=== PATIENT | female | born 1955 | race Caucasian/White ===

== ENCOUNTER 2019-09-22 07:37 | Outpatient (CLI) | payer MEDICARE, SELFPAY ==
--- NOTE | ~2019-09-22 | US_ITS ---
EXAMINATION: US venous doppler LE EXAM DATE: 09/22/2019 09:04 INDICATION: Bilateral leg swelling. TECHNIQUE: Multiple grayscale, color flow and Doppler images of the lower extremity deep venous syste ms bilaterally were obtained and reviewed. There is no prior study for comparison. FINDINGS: Right side: The right common femoral, femoral and profunda veins demonstrate normal color flow, respi ratory variation, augmentation and compressibility. Compressibility, color flow confirmed within the right popliteal, posterior tibial, peroneal, and greater saphenous veins. Left side: The left common femoral, femoral and profunda veins demonstrate normal color flow, respira tory variation, augmentation and compressibility. Compressibility, color flow confirmed within the l eft popliteal, posterior tibial, peroneal, and greater saphenous veins. IMPRESSION: 1. No lower extremity deep venous thrombosis bilaterally. Reviewed, dictated and finalized at location B.
--- NOTE | ~2019-09-22 | CT_ITS ---
EXAMINATION: CTA chest PE protocol EXAM DATE: 09/22/2019 08:46 INDICATION: Chest pain and shortness of breath. TECHNIQUE: Spiral CTA of the chest (pulmonary arteries) was performed with 100 cc Omnipaque 350 intr avenous contrast injection. Images were acquired during the pulmonary arterial phase. Coronal maxi mum intensity projection 3D-reconstructions were created by the technologist on dedicated workstation . Axial, coronal and sagittal reformatted images were reviewed. The dose-length product (DLP) for t his examination was 733.57 mGy-cm. The exposure was tailored according to patient size (auto mA exp osure control), and iterative reconstruction (ASIR) was used as additional dose reduction technique. There is no prior study for comparison. FINDINGS: Pulmonary arteries are well opacified and without intraluminal filling defects. No thora cic aortic dissection. There is some dependent mosaic attenuation, more likely air trapping than jonh undglass opacity from edema or pneumonia. There are no pleural or pericardial effusions. Tracheobr onchial tree is patent. There is no mediastinal, hilar or axillary lymphadenopathy. There is no p neumothorax. Mild cardiomegaly. No evidence of coronary arterial calcification. Multilobulated fl uid density right liver lobe lesion measuring 6 cm, and several smaller lesions all likely cysts. Th ere is thoracic spondylosis without osteoblastic or osteolytic lesions identified. IMPRESSION: 1. Dependent mosaic attenuation more likely air trapping and edema or infection. 2. Mild cardiomegaly. 3. No pulmonary emboli. Reviewed, dictated and finalized at location B. IMPRESSION: 1. Dependent mosaic attenuation more likely air trapping and edema or infectio n. 2. Mild cardiomegaly. 3. No pulmonary emboli.
--- NOTE | ~2019-09-22 | XR_ITS ---
EXAMINATION: XR lumbar spine 2-3V DATE: 09/22/2019 08:09 INDICATION: Cough, dorsalgia TECHNIQUE: Anteroposterior and lateral views of the lumbar spine, and cone-down lateral view of the l umbosacral junction were obtained. COMPARISON: None. FINDINGS: There are 2 mm of anterolisthesis of L4 on L5 and 2 mm of retrolisthesis of L5 on S1. There is moderate loss of intervertebral disc space height at L5-S1. Intervertebral disc spaces are otherw ise maintained. The vertebral body heights are normal. Small degenerative osteophytes project from th e anterior endplates of multiple vertebral bodies. There is no fracture. There is moderate facet oste oarthritis of the lower lumbar spine. The bowel gas pattern is normal. Phleboliths are noted in the p bhaskar. A neurostimulator device is implanted in the posterior subcutaneous tissues on the right with its lead entering the right pelvis. IMPRESSION: 1. Mild/moderate lumbar spondylosis without acute findings. Reviewed, dictated and finalized at location A.
--- NOTE | ~2019-09-22 | XR_ITS ---
EXAMINATION: XR barium swallow modified DATE: 09/22/2019 09:31 INDICATION: Cough, history of gastroesophageal reflux disease TECHNIQUE: Modified barium esophagram was performed by myself to administered fluoroscopy, in conjun ction with speech pathologist who administered barium in varying consistencies as per speech patholog ist documentation. This was recorded on tape. A single fluoroscopic spot image was recorded. The DAP for this procedure was 2.587 Gycm2. Fluoroscopy exposure time was 2.3 minutes. FINDINGS: Oral stage: Adequate function. Pharyngeal phase: Adequate function. Laryngeal penetration: None. Aspiration: None. Laryngeal sensitivity: Present. IMPRESSION: No laryngeal penetration or aspiration. Please refer to speech pathologist findings and s pecific feeding recommendations. Reviewed, dictated and finalized at location A. IMPRESSION: No laryngeal penetration or aspiration. Please refer to speech path ologist findings and specific feeding recommendations.
[2019-09-22 08:27] LABS: Estimated Glomerular Filt Rate > 60
--- NOTE | 2019-09-22 15:40 | STOPEVAL ---
MODIFIED BARIUM SWALLOW EVALUATION: Attending Provider: Van Dupree MD *ST Outpatient Evaluation ([facility] [place]) Start: 09/22/19 15:28 Freq: Status: Active Protocol: Document 09/22/19 09:00 BECHERERT (Rec: 09/22/19 15:40 BECHERERT [email or web address]) Therapy Assessment Status Assessment Status Assessment Status Evaluation Outpatient Past Medical History Neurological History Hx Migraine Yes Hx Other Neurological Disorders Yes: peripheral neuropathy; episodes of confusion Prior Level of Function Prior Swallow Level Prior Intake Method Oral Prior Diet Regular (Level 7 Diet) Prior Liquid Consistency Thin (Level 0 Diet) Pain Assessment Timing of Pain Assessment Timing of Pain Assessment Assessment Self Report Self Report Pain Level 0 Pain Score Pain Score 0: Self Report Modified Barium Swallow Evaluation Recent Swallowing History Reports Dysphagia Yes: choking, excessive coughing History of Dysphagia No Duration of Dysphagia 2 months Other Related History denies CVA but reported episodes of confusion History of Pneumonia No Intake Method Prior to Swallow Oral Evaluation Diet Prior to Swallow Evaluation Regular, Level 7 Liquid Consistency Prior to Swallow Thin (0) Evaluation Consistency Thin Uncontrolled 2 Method of Presentation Straw Oral Preparatory Symptoms None Oral Phase Symptoms None Pharyngeal Phase Symptoms None Severity of Vallecular Residue None - 0% No Residue Severity of Pyriform Sinus Residue None - 0% No Residue 8 Point Laryngeal Penetration-Aspiration Material Does Not Enter Airway Scale Cervical/Esophageal Symptoms None Thin Uncontrolled 1 Method of Presentation Cup Oral Preparatory Symptoms None Oral Phase Symptoms None Pharyngeal Phase Symptoms None Severity of Vallecular Residue None - 0% No Residue Severity of Pyriform Sinus Residue None - 0% No Residue 8 Point Laryngeal Penetration-Aspiration Material Does Not Enter Airway Scale Cervical/Esophageal Symptoms None Solid Consistency Method of Presentation Spoon Oral Preparatory Symptoms None Oral Phase Symptoms None Pharyngeal Phase Symptoms None Severity of Vallecular Residue None - 0% No Residue Severity of Pyriform Sinus Residue None - 0% No Residue 8 Point Laryngeal Penetration-Aspiration Material Does Not Enter Airway Scale Cervical/Esophageal Symptoms None Mixed Consistency Method of Presentation Spoon Oral Preparatory Symptoms None Oral Pha
== END 2019-09-22 07:38 | disposition home or self-care (01) ==
PROVIDERS: PCP Internal Medicine; Visit Provider Internal Medicine
DX: R07.9 Chest pain, unspecified (principal); R06.02 Shortness of breath; R05 Cough; K21.9 Gastro-esophageal reflux disease without esophagitis; I51.7 Cardiomegaly; M47.896 Other spondylosis, lumbar region
CPT/HCPCS: 36415; 71275; 72100; 92611; 93970; Q9967

== ENCOUNTER 2019-09-26 06:38 | Outpatient (CLI) | payer MEDICARE, SELFPAY ==
--- NOTE | 2019-09-26 07:30 | NEURO_ITS ---
TEST: SLEEP-DEPRIVED ELECTROENCEPHALOGRAM DIAGNOSIS: GLOBAL AMNESIA PATIENT NUMBER: [id number] EEG NUMBER: [id number] RECORDING DATE: 09/26/19 CONDITION OF RECORDING: Awake, drowsy and sleep EEG DESCRIPTION: Basic resting occipital frequency consists of moderate amount of well organized low to medium voltage 8-10hz alpha mixed with low voltage 15- 18hz beta. During drowsiness low voltage beta activity is seen diffusely mixed with waxing and waning posterior alpha rhythms and intermittent theta activity. Bilateral symmetrical sleep activity is seen during sleep. Photic stimulation produced normal drive. Intermittent asymmetrical theta activity is seen over the left hemispheric linkages. Nonparoxysmal. IMPRESSION: Only questionably abnormal record due to the presence of the asymmetrical theta activity over the left hemispheric linkages.Clinical correlation recommended. This abnormality is not paroxysmal in nature but considering the clinical symptomatology further evaluation is suggested. WESLEY
== END 2019-09-26 06:39 | disposition home or self-care (01) ==
PROVIDERS: PCP Internal Medicine; Visit Provider Internal Medicine
DX: G45.4 Transient global amnesia (principal); R94.01 Abnormal electroencephalogram [EEG]
CPT/HCPCS: 95819

== ENCOUNTER 2019-11-12 10:04 | Outpatient (CLI) | payer MEDICARE, SELFPAY ==
--- NOTE | 2019-11-12 11:30 | NEURO_ITS ---
Patient Number: [id number] Impression: # Complains of numbness of hands. # Mild evolving Carpal Tunnel Syndrome bilaterally. # No ulnar neuropathy. # Normal needle/EMG exam. Nerve Conduction Studies Anti Sensory Summary Table Stim Site NR Peak (ms) P-T Amp (?V) Site1 Site2 Delta-P (ms) Dist (cm) Quang (m/s) Left Median Anti Sensory (2-3nd Digit) Wrist 2.7 92.7 Wrist 2-3nd Digit 2.7 14.0 52 Wrist 2.8 83.3 Wrist 2-3nd Digit 2.7 14.0 52 Right Median Anti Sensory (2-3nd Digit) Wrist 3.2 14.4 Wrist 2-3nd Digit 3.2 14.0 44 Wrist 2.8 66.3 Wrist 2-3nd Digit 3.2 14.0 44 Left Radial Anti Sensory (Base 1st Digit) Wrist 2.1 9.9 Wrist Base 1st Digit 2.1 0.0 Right Radial Anti Sensory (Base 1st Digit) Wrist 2.3 20.3 Wrist Base 1st Digit 2.3 0.0 Left Ulnar Anti Sensory (5th Digit) Wrist 2.3 94.5 Wrist 5th Digit 2.3 14.0 61 Right Ulnar Anti Sensory (5th Digit) Wrist 2.4 19.1 Wrist 5th Digit 2.4 14.0 58 Motor Summary Table Stim Site NR Onset (ms) O-P Amp (mV) Site1 Site2 Delta-0 (ms) Dist (cm) Quang (m/s) Left Median Motor (Abd Poll Brev) Wrist 3.5 3.7 Elbow Wrist 4.6 28.0 61 Elbow 8.1 2.7 Right Median Motor (Abd Poll Brev) Wrist 3.7 2.4 Elbow Wrist 6.8 30.0 44 Elbow 10.5 1.0 Left Ulnar Motor (Abd Dig Minimi) Wrist 2.4 6.0 A Elbow Wrist 4.8 29.0 60 A Elbow 7.2 5.2 Right Ulnar Motor (Abd Dig Minimi) Wrist 2.3 6.1 A Elbow Wrist 4.8 28.0 58 A Elbow 7.1 5.3 F Wave Studies NR F-Lat (ms) L-R F-Lat (ms) Left Median (Mrkrs) (Abd Poll Brev) 27.45 0.95 Right Median (Mrkrs) (Abd Poll Brev) 28.40 0.95 Left Ulnar (Mrkrs) (Abd Dig Min) 28.43 0.46 Right Ulnar (Mrkrs) (Abd Dig Min) 27.97 0.46 EMG Side Muscle Nerve Root Ins Act Fibs Amp Dur Recrt Comment Right 1stDorInt Ulnar C8-T1 Nml Nml Nml Nml Nml Right Ext Indicis Radial (Post Int) C7-8 Nml Nml Nml Nml Nml Right Ext Digitorum Radial (Post Int) C7-8 Nml Nml Nml Nml Nml Right BrachioRad Radial C5-6 Nml Nml Nml Nml Nml Right PronatorTeres Median C6-7 Nml Nml Nml Nml Nml Right Abd Poll Brev Median C8-T1 Nml Nml Nml Nml Nml Left 1stDorInt Ulnar C8-T1 Nml Nml Nml Nml Nml Left Ext Indicis Radial (Post Int) C7-8 Nml Nml Nml Nml Nml Left Ext Digitorum Radial (Post Int) C7-8 Nml Nml Nml Nml Nml Left BrachioRad Radial C5-6 Nml Nml Nml Nml Nml Left PronatorTeres Median C6-7 Nml Nml Nml Nml Nml Left Abd Poll Brev Median C8-T1 Nml Nml Nml Nml Nml MTDD
== END 2019-11-12 10:05 | disposition home or self-care (01) ==
PROVIDERS: PCP Internal Medicine; Visit Provider Internal Medicine
DX: R20.2 Paresthesia of skin (principal); G56.03 Carpal tunnel syndrome, bilateral upper limbs
CPT/HCPCS: 95886; 95911

== ENCOUNTER 2019-11-27 11:35 | Outpatient (CLI) | payer MEDICARE, SELFPAY ==
--- NOTE | ~2019-11-27 | XR_ITS ---
EXAMINATION: XR chest 2V 11/27/2019 10:58 INDICATION: Fever with cough for 2 nights. Wheezing. PROCEDURE: 2 view chest COMPARISON: No prior studies for comparison. FINDINGS: The lungs are clear. The cardiomediastinal silhouette is within normal limits. There are no pleural effusions. There is no pneumothorax suspected. IMPRESSION: 1: NO ACUTE CARDIOPULMONARY DISEASE. Reviewed, dictated and finalized at location B.
[2019-11-27 12:18] LABS: Influenza Control Positive
== END 2019-11-27 11:36 | disposition home or self-care (01) ==
PROVIDERS: PCP Internal Medicine; Visit Provider Internal Medicine
DX: R50.9 Fever, unspecified (principal); R05 Cough; R06.2 Wheezing
CPT/HCPCS: 71046; 87804

== ENCOUNTER 2019-12-15 03:46 | Outpatient (CLI) | payer MEDICARE, SELFPAY ==
[2019-12-15 20:39] LABS: SARS-CoV-2 RNA PCR Negative
== END 2019-12-15 03:47 | disposition home or self-care (01) ==
LOC: ANHCOVIDDT 03:47
PROVIDERS: PCP Internal Medicine; Visit Provider Plastic Surgery
DX: R50.9 Fever, unspecified (principal); Z20.828 Contact with and (suspected) exposure to other viral communicable diseases
CPT/HCPCS: 87635; C9803; U0003

== ENCOUNTER 2019-12-15 08:27 | Outpatient (CLI) | payer MEDICARE, SELFPAY ==
[2019-12-15 08:59] LABS: Basophils Percent Auto 0.7 % (0.2-1.2); Eosinophils Absolute Auto 0.2 K/mm3 (0-0.3); Eosinophils Percent Auto 3.5 % (0-4.4); Hematocrit 40.5 % (37.0-47.0); Hemoglobin 13.3 g/dL (12.0-15.0); Immature Granulocyte Absolute 0.03 K/mm3 (0.00-0.031); Immature Granulocyte Percent A 0.5 % (0-0.5); Lymphocytes Absolute Auto 1.58 K/mm3 (0.9-3.2); Lymphocytes Percent Auto 27.8 % (18.3-44.2); Mean Corpuscular HGB Conc 32.8 g/dl (32-36); Mean Corpuscular Hemoglobin 29.2 pg (26-34); Mean Platelet Volume 9.9 fl (7.4-10.4); Monocytes Absolute Auto 0.4 K/mm3 (0.1-0.6); Monocytes Percent Auto 6.7 % (2.6-8.5); Neutrophils Absolute Auto 3.5 K/mm3 (1.3-6.7); Neutrophils Percent Auto 60.8 % (45.5-73.1); Platelet Count Result 308 k/mm3 (150-375); Red Blood Count 4.55 M/mm3 (4.2-5.4); Red Cell Distribution Width 14.4 % (11.5-14.5); White Blood Count 5.7 K/mm3 (4.5-10.0)
[2019-12-15 09:10] LABS: Alanine Aminotransferase 45 U/L (4-35); Albumin Level 4.4 g/dL (3.5-5.1); Alkaline Phosphatase 151 U/L (38-126); Anion Gap 9 mmol/L (8-16); Aspartate Amino Transferase 29 U/L (14-36); Bilirubin,Total 0.4 mg/dL (0.2-1.3); Blood Urea Nitrogen 23 mg/dL (7-17); Calcium 9.9 mg/dL (8.4-10.2); Carbon Dioxide 30 mmol/L (22-30); Chloride 100 mmol/L (98-107); Cholesterol 194 mg/dL (0-200); Estimated Glomerular Filt Rate > 60; Glucose 103 mg/dL (65-105); HDL Direct 59 mg/dL; Potassium 4.1 mmol/L (3.4-5.0); Sodium 139 mmol/L (137-145); Triglycerides 184 mg/dL (<150)
[2019-12-15 09:15] LABS: Hemoglobin A1C 5.7 % (<5.7)
[2019-12-15 09:21] LABS: LDL Cholesterol Direct 86 mg/dL
[2019-12-15 09:38] LABS: Creatinine Urine 106.6 mg/dL
[2019-12-15 09:47] LABS: MALB Creatinine Ratio < 5.6 mg/g (0-30); Microalbumin Urine Random < 6.0 mg/L (0-16.7)
== END 2019-12-15 08:28 | disposition home or self-care (01) ==
PROVIDERS: PCP Internal Medicine; Visit Provider Internal Medicine
DX: E11.9 Type 2 diabetes mellitus without complications (principal); I10 Essential (primary) hypertension; Z51.81 Encounter for therapeutic drug level monitoring; Z79.899 Other long term (current) drug therapy; E78.5 Hyperlipidemia, unspecified
CPT/HCPCS: 36415; 80053; 80061; 82043; 83036; 84443; 85025; 87635; C9803; U0003

== ENCOUNTER 2019-12-18 01:33 | Day surgery (SDC) | payer MEDICARE, SELFPAY ==
[2019-12-12 15:33] VITALS: BMI 40.3
--- NOTE | 2019-12-17 10:28 | WPDANESEPPF ---
Anes - Initial Pre Proc Eval Procedure: Operation Date: 12/18/19 10:30 Proposed Procedures p Bilateral Open Carpal Tunnel Release - Hansel Saleh MD Date/Time: 12/17/19 10:28 Surgeon: Hansel Saleh MD Pre Op Diagnosis: Bilateral Carpal Tunnel Syndrome Patient Data Age: 64 Gender: F Height: 1.68 m Weight: 113.4 kg Allergies Allergy/AdvReac Type Severity Reaction Status Date / Time clindamycin Allergy Intermediate Hives Verified 12/12/19 15:35 lithium AdvReac Severe Hallucinati Verified 12/12/19 15:35 ng zolpidem AdvReac Severe Hallucinati Verified 12/12/19 15:35 ng gabapentin AdvReac Mild Confusion Verified 12/12/19 15:35 W/ HIGHER DOSAGES pregabalin [From Lyrica] AdvReac Mild HAIR LOSS Verified 12/12/19 15:35 topiramate [From Topamax] AdvReac Mild Hallucinati Verified 12/12/19 15:35 ng ziprasidone [From Geodon] AdvReac Mild Confusion Verified 12/12/19 15:35 ORAL STEROIDS AdvReac Depression Uncoded 12/12/19 15:35 Home Medications Medication Instructions Recorded Confirmed Type albuterol sulfate 90 mcg/actuation 1 puff INHALATION Q4H PRN 09/09/19 12/12/19 History aerosol inhaler allopurinol 100 mg tablet 100 mg PO DAILY 09/09/19 12/12/19 History cholecalciferol (vitamin D3) 1,250 1,250 mcg PO [id number] 09/09/19 12/12/19 History mcg (50,000 unit) capsule clonazepam 1 mg tablet 1 mg PO .COMPLEX 09/09/19 12/12/19 History colchicine 0.6 mg tablet 0.6 mg PO DAILY 09/09/19 12/12/19 History cranberry fruit concentrate 250 mg 250 mg PO DAILY 09/09/19 12/12/19 History chewable tablet diclofenac sodium 1 % topical gel 4 gm TOPICAL QID PRN 09/09/19 12/12/19 History duloxetine 60 mg capsule,delayed 120 mg PO DAILY cap 09/09/19 12/12/19 History release lamotrigine 150 mg tablet 200 mg PO BID 09/09/19 12/12/19 History magnesium 250 mg tablet 500 mg PO HS tablet 09/09/19 12/12/19 History multivitamin 1 cap PO DAILY 09/09/19 12/12/19 History polyethylene glycol 3350 17 17 gm PO DAILY PRN 09/09/19 12/12/19 History gram/dose oral powder sumatriptan succinate 100 mg tablet See Rx Instructions PO .COMPLEX 09/09/19 12/12/19 History blood sugar diagnostic #50 each 09/17/19 10/16/19 Rx carvedilol 3.125 mg tablet 6.25 mg PO Q12H tablet 09/17/19 12/12/19 History lancets #50 each 09/17/19 10/16/19 Rx potassium chloride 20 mEq 40 meq PO DAILY tablet 09/17/19 12/12/19 History tablet,extended release atorvastatin 10 mg tablet 10 mg PO DAILY #90 tablet 09/19/19 12/12/19 Rx benzonatate 100 mg capsule 200 mg PO BID-TID PRN #30 cap 09/30/19 12/12/19 Rx furosemide 40 mg tablet 80 mg PO DAILY tablet 10/10/19 12/12/19 History spironolactone 50 mg tablet 50 mg PO BID tablet 10/10/19 12/12/19 History sucralfate 1 gram tablet 2 gm PO .bedtime #180 tablet 10/16/19 12/12/19 Rx pantoprazole 40 mg tablet,delayed 40 mg PO QAM #90 tablet 10/22/19 12/12/19 Rx release blood-glucose meter #1 each 11/21/19 Rx semaglutide 0.5 mg SUB-Q WEEKLY 90 Days #5.2 ml 11/26/19 12/12/19 Rx Breo Ellipta 100 mcg-25 mcg/dose 1 ea INHALATION DAILY #28 ea NS 12/10/19 12/12/19 Rx powder for inhalation cyclobenzaprine 10 mg tablet 10 mg PO TID PRN #30 tablet 12/10/19 12/12/19 Rx metformin 500 mg tablet 500 mg PO BID #180 tablet 12/10/19 12/12/19 Rx ropinirole 2 mg tablet 2 mg PO .COMPLEX 90 Days #270 12/10/19 12/12/19 Rx tablet mirtazapine 30 mg PO QPM 12/12/19 12/12/19 History triamcinolone acetonide 1 applic TOPICAL BID PRN 12/12/19 12/12/19 History PMFSH Past Medical History Medical History (Updated 11/27/19 @ 09:16 by Melanie Whitehead) Abnormal finding of blood chemistry Back pain Benign essential hypertension Bilateral carpal tunnel syndrome Bipolar affect, depressed Body mass index (BMI) 40.0-44.9, adult Chest pain Chronic constipation Chronic cough Compression fracture of T4 vertebra Depression Encounter to establish care Fever Folliculitis Follow up GERD (gastroesophageal reflux disease) Gou
[2019-12-18] VITALS (7 sets, daily range): BP systolic 136–165; BP diastolic 69–83; PULSE 66–73; RESP 14–24; TEMP 36.5; O2SAT 92–100
--- NOTE | 2019-12-18 07:34 | WPDHPUPDATE1 ---
History and Physical Update Update Date/Time: 12/18/19 07:34 History and Physical has been reviewed, including an updated exam of the patient. There are NO changes in the patient's condition. Risks, benefits, and alternatives have been discussed and questions answered. Patient agrees to proceed with procedure.
[2019-12-18] MEDS: LIDO 1%/EPINEPHRINE 1:100,000 20 ML VIAL 8 ML INFILTRATE (11:22)
--- NOTE | 2019-12-18 11:53 | PM.OP ---
Procedure Note - Brief Procedure Note - Brief Date of procedure: 12/18/19 Pre-op diagnosis: Bilateral Carpal Tunnel Syndrome Post-op diagnosis: same Procedure performed: Bilateral carpal tunnel release. Anesthesia: local Surgeon: Hansel Saleh MD Estimated blood loss (mL): 3 Tourniquet time (min): 0 Drains: No Packing: No Pathology: none sent Complications: No immediate complications Condition: stable Disposition: same day
--- NOTE | 2019-12-18 11:55 | PM.PROC ---
Procedure Note - Detailed Date of procedure: 12/18/19 Pre-op diagnosis: Bilateral Carpal Tunnel Syndrome Post-op diagnosis: same Procedure performed: Bilateral open carpal tunnel release Description of procedure: The two volar wrist sites were marked in the holding area. The patient was taken to the operating room and placed supine on the operating table. The time-out was held and confirmed. Both extremities were prepped and draped in usual fashion. The 2 hands were remarked for the surgical incision and locally infiltrated with 1% lidocaine with epinephrine for On the right the incision was made as marked. The tourniquet was not utilized. Dissection was carried through the subcutaneous tissue to the palmar fascia this and the carpal ligament were incised with a 15. Blade. Under 3 point retraction the ligament was divided distally and proximally to completely release it. Some bleeding points in the subcutaneous wall were cauterized with a setting of 10. There was no unusual anatomy noted. The skin wound was closed with interrupted 5 0 nylon suture. The bandage was applied by the circulating nurse as we moved to the left hand. On the left again the tourniquet was not utilized. The incision was made with a 15 blade. Dissection was carried bluntly through the subcutaneous tissue to the palmar fascia. The fascia and the carpal ligament were incised with a 15 blade opening the canal. Under 3 point retraction the ligament was divided distally and proximally to completely release it. No unusual anatomy was noted on the left. The skin was closed with interrupted 5 0 nylon suture. The usual bandage was applied. The patient is discharged home with instructions in wound care and follow-up a prescription for hydrocodone 5/325 10. Was sent to her pharmacy. Surgeon: Hansel Saleh MD
== END 2019-12-18 12:10 | disposition home or self-care (01) ==
PROVIDERS: PCP Internal Medicine; Visit Provider Plastic Surgery
PROC: (CPT 64721; principal; 2019-12-18 10:30)
DX: G56.03 Carpal tunnel syndrome, bilateral upper limbs (principal)
CPT/HCPCS: 64721; A9270

== ENCOUNTER 2019-12-31 09:47 | Outpatient (CLI) | payer MEDICARE, SELFPAY ==
--- NOTE | 2019-12-31 11:00 | NEURO_ITS ---
Impression: # Complains of increasing numbness. Newly diagnosed diabetic. # Asymmetrical sensory neuropathy. # Needle/EMG exam revealed no neurogenic changes but decreased motor unit potentials in distal muscles. # Clinical correlation recommended. Nerve Conduction Studies Anti Sensory Summary Table Stim Site NR Peak (ms) P-T Amp (?V) Site1 Site2 Delta-P (ms) Dist (cm) Quang (m/s) Left Sup Fibular Anti Sensory (Ant Lat Mall) 14 cm 4.2 9.9 14 cm Ant Lat Mall 4.2 16.0 38 Right Sup Fibular Anti Sensory (Ant Lat Mall) NO RESPONSE 14 cm NR 14 cm Ant Lat Mall 16.0 Left Sural Anti Sensory (Lat Mall) Calf 4.3 13.8 Calf Lat Mall 4.3 16.0 37 Right Sural Anti Sensory (Lat Mall) NO RESPONSE Calf NR Calf Lat Mall 16.0 Motor Summary Table Stim Site NR Onset (ms) O-P Amp (mV) Site1 Site2 Delta-0 (ms) Dist (cm) Quang (m/s) Left Peroneal Motor (Vastus Med) Ankle 4.2 3.1 Popit Ankle 7.7 39.0 51 Popit 11.9 2.6 Right Peroneal Motor (Vastus Med) Ankle 3.6 1.7 Popit Ankle 7.8 37.0 47 Popit 11.4 1.1 Left Tibial Motor (Abd Graham Brev) Ankle 4.5 2.5 Knee Ankle 9.6 43.0 45 Knee 14.1 3.2 Right Tibial Motor (Abd Graham Brev) Ankle 4.1 5.9 Knee Ankle 9.2 41.0 45 Knee 13.3 2.2 F Wave Studies NR F-Lat (ms) L-R F-Lat (ms) Left Peroneal (Mrkrs) (EDB) 48.64 1.89 Right Peroneal (Mrkrs) (EDB) 50.53 1.89 Left Tibial (Mrkrs) (Abd Hallucis) 49.78 0.35 Right Tibial (Mrkrs) (Abd Hallucis) 49.43 0.35 EMG Side Muscle Nerve Root Ins Act Fibs Amp Dur Recrt Comment Right AntTibialis Dp Br Fibular L4-5 Nml Nml Nml Nml Nml Right Gastroc Tibial S1-2 Nml Nml Nml Nml Nml Right Fibularis Long Sup Br Fibular L5-S1 Nml Nml Nml Nml Nml Right Flex Dig Long Tibial L5-S2 Nml Nml Nml Nml Nml Right Ext Dig Brev Dp Br Fibular L5, S1 Nml Nml Nml >12ms Reduced Left AntTibialis Dp Br Fibular L4-5 Nml Nml Nml Nml Nml Left Gastroc Tibial S1-2 Nml Nml Nml Nml Nml Left Fibularis Long Sup Br Fibular L5-S1 Nml Nml Nml Nml Nml Left Flex Dig Long Tibial L5-S2 Nml Nml Nml Nml Nml Left Ext Dig Brev Dp Br Fibular L5, S1 Nml Nml Nml >12ms Reduced MTDD
== END 2019-12-31 09:48 | disposition home or self-care (01) ==
PROVIDERS: PCP Internal Medicine; Visit Provider Internal Medicine
DX: G62.9 Polyneuropathy, unspecified (principal)
CPT/HCPCS: 95886; 95910

== ENCOUNTER 2020-01-13 09:01 | Outpatient (CLI) | payer MEDICARE, SELFPAY ==
[2020-01-13 10:48] LABS: Folic Acid 11.2 ng/mL (2.76->20)
[2020-01-16 11:07] LABS: Vitamin B1 <6 nmol/L (8-30)
[2020-01-16 12:25] LABS: Vitamin B6 23.3 ng/mL (2.1-21.7)
[2020-01-20 12:08] LABS: Vitamin B2 5.1 nmol/L (6.2-39.0)
== END 2020-01-13 09:02 | disposition home or self-care (01) ==
PROVIDERS: PCP Internal Medicine; Visit Provider Internal Medicine
DX: Z51.81 Encounter for therapeutic drug level monitoring (principal); R26.81 Unsteadiness on feet; R41.3 Other amnesia
CPT/HCPCS: 36415; 80299; 82607; 82746; 84207; 84252; 84425

== ENCOUNTER 2020-01-21 10:34 | Outpatient (CLI) | payer MEDICARE, SELFPAY ==
--- NOTE | ~2020-01-21 | CT_ITS ---
EXAMINATION: CT brain wo/w con DATE: 01/21/2020 11:17 INDICATION: Transient global amnesia. TECHNIQUE: Computed tomography (CT) of the head was performed without and with 100 mL Omnipaque 350 i ntravenous contrast. The mA was adjusted according to patient size. Iterative reconstruction techniqu e was employed. The dose-length product was 1210.67 mGy-cm. COMPARISON: None FINDINGS: There is no intracranial hemorrhage, acute infarction, or abnormal intracranial mass lesion . There are scattered areas of low attenuation in the cerebral white matter, which is within normal l imits for the patient's age. The ventricles are normal in size. There are likely changes of ocular le ns replacement surgeries. There is mild mucosal thickening in the ethmoid sinuses. The mastoid air ce lls are normal. IMPRESSION: 1. Normal aging brain. Reviewed, dictated and finalized at location A. NG AND REIMBURSEMENT SPECIALIST IMPRESSION: 1. Normal aging brain.
[2020-01-21 11:05] LABS: Estimated Glomerular Filt Rate > 60
== END 2020-01-21 10:35 | disposition home or self-care (01) ==
PROVIDERS: PCP Internal Medicine; Visit Provider Internal Medicine
DX: G45.4 Transient global amnesia (principal); R26.81 Unsteadiness on feet
CPT/HCPCS: 70470; Q9967

== ENCOUNTER 2020-01-26 13:19 | Outpatient (RCR) | payer MEDICARE, SELFPAY ==
--- NOTE | 2020-01-26 14:58 | STOPEVAL ---
OUTPATIENT SPEECH THERAPY EVALUATION OF SWALLOWING/DISCHARGE: Thank you for referring Ifeoma Tavares to [facility].? Please review, sign, date and return this plan of care OBEY. No further Speech Therapy is recommended at this time. I agree with with the following evaluation and discharge. Referring Physician Date Attending Provider: Page Garcia MD fax: [phone] *ST Outpatient Evaluation Start: 01/26/20 14:23 Freq: Status: Active Protocol: Document 01/26/20 13:30 BECHERERT (Rec: 01/26/20 14:57 BECHERERT [email or web address]) Therapy Assessment Status Assessment Status Assessment Status Evaluation Outpatient Past Medical History Past Medical History Source of Past Medical History Patient Neurological History Hx Migraine Yes Hx Other Neurological Disorders Yes: peripheral neuropathy/ edema;tingling & numbness of UE; global amnesia Cardiovascular History Hx Chest Pain Yes Hx Hypertension Yes: benign essential Respiratory History Hx Sleep Apnea Yes: on CPAP Hx Other Respiratory Disorders Yes: chronic cough, SOB, Gastrointestinal History Hx Cholecystectomy Yes Hx Gastroesophageal Reflux Disease Yes Hx Hernia Yes: hiatal hernia Hx Irritable Bowel Yes Hx Polyps Yes: polypectomy 10-16-16 Hx Other Gastrointestinal Disorders Yes: chronic constipation Genitourinary History Hx Bladder Surgery Yes Hx Other Genitourinary Disorders Yes: stress incontinence; bladder suspension Musculoskeletal History Hx Back Pain Yes Hx Gout Yes Hx Orthopedic Surgery Yes: rotator cuff repair Hx Other Musculoskeletal Disorders Yes: gait instability; compression fx T4; bilateral carpal tunnel syndrome; Endocrine History Hx Diabetes Yes: type 2 Hx Other Endocrine Disorders Yes: Raynauds, HEENT History Hx Other HEENT Disorders Yes: polyps on vocal cords - removed Reproductive History Hx Hysterectomy Yes: partial Psychosocial History Hx Depression Yes Hx Post Traumatic Stress Disorder Yes Prior Level of Function Home Setting Living Situation With Spouse Prior Swallow Level Prior Intake Method Oral Prior Diet Regular (Level 7 Diet) Prior Liquid Consistency Thin (Level 0 Diet) Comments Additional Prior Level of Function Previous MBS on 09-22-19: 1 Comments episode of microaspiration with 5c amount but no other instances even
== END 2020-01-27 08:52 | disposition home or self-care (01) ==
LOC: ANHST 13:19
PROVIDERS: PCP Internal Medicine; Visit Provider Internal Medicine Critical Care Medicine
DX: T17.908A Unspecified foreign body in respiratory tract, part unspecified causing other injury, initial encounter (principal)
CPT/HCPCS: 92610

== ENCOUNTER 2020-02-26 07:17 | Outpatient (CLI) | payer MEDICARE, SELFPAY ==
--- NOTE | 2020-02-26 15:44 | WPDPFTINT ---
PFT Interpretation This is a pulmonary function test with pre and post-bronchodilator spirometry, plethysmography and diffusing capacity. The test was performed and results interpreted in accordance with the 2019 and 2005 ATS/ERS Task Force guidelines respectively using the Raffaele/Khoa reference equations. Findings: Spirometry: The contour of the inspiratory and expiratory flow tracing are normal. The pre bronchodilator FVC is 2.57 L, 77% predicted. The pre bronchodilator FEV1 is 1.95 L, 80% predicted. The FEV1: FVC ratio is 76%. The post bronchodilator FVC is 2.34 L, representing a 9% decrease. The post bronchodilator FEV1 is 1.91 L, representing a 2% decrease. Plethysmography: The total lung capacity is 4.86 L, 89% predicted. The functional residual capacity is 1.71 L, 72% predicted. The residual volume is 1.53 L, 72% predicted. Diffusing capacity: The absolute diffusion capacities capacity is 16.5, 60% predicted. The diffusing capacity corrected for alveolar volume is 4.80, 128% predicted. Impression: The spirometry is normal without evidence of an obstructive abnormality. There is no significant improvement after inhaling a single dose of albuterol. There is a reduction in the residual volume and functional residual capacity with a normal total lung capacity. This is an abnormal but nonspecific lung volume pattern. The absolute diffusing capacity is moderately decreased but increased when corrected for alveolar volume. There are no prior studies for comparison
== END 2020-02-26 07:18 | disposition home or self-care (01) ==
LOC: ANHPFT 07:18
PROVIDERS: PCP Internal Medicine; Visit Provider Internal Medicine Critical Care Medicine
DX: R05 Cough (principal)
CPT/HCPCS: 94060; 94726; 94729

== ENCOUNTER 2020-03-06 08:54 | Outpatient (CLI) | payer MEDICARE, SELFPAY ==
--- NOTE | ~2020-03-06 | XR_ITS ---
XR shoulder LT min 2V DATE: 03/06/2020 09:27 INDICATION: Shoulder pain. Fall 2 weeks ago TECHNIQUE: 4 views of left shoulder COMPARISON: None FINDINGS: Diffuse osteopenia. No fracture or dislocation. Normal alignment at the acromioclavicular and glenohumeral joints. No per iosteal reaction or bone destruction. No abnormal soft tissue calcification of the left shoulder. IMPRESSION: Osteopenia; otherwise negative Reviewed, dictated and finalized at location A. CIPAL TECHNICAL SPECIALIST
--- NOTE | ~2020-03-06 | XR_ITS ---
XR shoulder RT min 2V DATE: 03/06/2020 09:27 INDICATION: Right shoulder pain. Fall 2 weeks ago. TECHNIQUE: 4 views COMPARISON: None FINDINGS: Diffuse osteopenia. No fracture, dislocation, periosteal reaction or bone destruction. No significant abnormal soft tissu e calcification at the right shoulder. IMPRESSION: Osteopenia; otherwise negative Reviewed, dictated and finalized at location A. [employer]
== END 2020-03-06 08:55 | disposition home or self-care (01) ==
PROVIDERS: PCP Internal Medicine; Visit Provider Internal Medicine
DX: M85.811 Other specified disorders of bone density and structure, right shoulder (principal); M85.812 Other specified disorders of bone density and structure, left shoulder
CPT/HCPCS: 73030

== ENCOUNTER 2020-03-09 08:28 | Outpatient (CLI) | payer MEDICARE, SELFPAY ==
--- NOTE | 2020-03-09 13:37 | WPDPFTINT ---
PFT Interpretation This is a methacholine challenge test. The test was performed and interpreted in accordance with the 1999 [place] [employer] guidelines. The test was performed with increasing doses of nebulized methacholine using a 2 minute tidal breathing protocol. The best post-methacholine FEV1 values were used to calculate the change from the post diluent FEV1. Findings: Baseline FEV1 1.89, 78% predicted. Post diluent FEV1 2.18 L Post 0.025 mg/ml methacholine FEV1 1.80 L, decreased 17% Post 0.25 mg/mL methacholine FEV1 1.83 L, decreased 16% Post 2.5 mg/mL methacholine FEV1 1.51 L, decreased 31% Post albuterol nebulization FEV1 2.01 L Impression: The PC20 is 0.46 mg/ml which is categorized as moderate to severe bronchial hyperresponsiveness. There are no prior methacholine challenge studies for comparison
== END 2020-03-09 08:29 | disposition home or self-care (01) ==
PROVIDERS: PCP Internal Medicine; Visit Provider Internal Medicine Critical Care Medicine
DX: R05 Cough (principal)
CPT/HCPCS: 94070; J7674

== ENCOUNTER 2020-03-22 11:57 | Outpatient (CLI) | payer MEDICARE, SELFPAY | END 2020-03-22 11:58 | disposition home or self-care (01) | PROVIDERS: PCP Internal Medicine; Visit Provider Internal Medicine Critical Care Medicine | DX: J45.909 Unspecified asthma, uncomplicated (principal) | CPT/HCPCS: 36415; 82785; 86003 ==

== ENCOUNTER 2020-04-12 09:37 | Outpatient (CLI) | payer MEDICARE, SELFPAY ==
[2020-04-12 10:18] LABS: Hemoglobin A1C 5.7 % (<5.7)
[2020-04-12 10:24] LABS: Alanine Aminotransferase 61 U/L (4-35); Albumin Level 4.2 g/dL (3.5-5.1); Alkaline Phosphatase 108 U/L (38-126); Anion Gap 4 mmol/L (8-16); Aspartate Amino Transferase 36 U/L (14-36); Bilirubin,Total 0.4 mg/dL (0.2-1.3); Blood Urea Nitrogen 21 mg/dL (7-17); Carbon Dioxide 32 mmol/L (22-30); Chloride 102 mmol/L (98-107); Cholesterol 121 mg/dL (0-200); Estimated Glomerular Filt Rate > 60; Glucose 97 mg/dL (65-105); HDL Direct 69 mg/dL; Potassium 3.8 mmol/L (3.4-5.0); Sodium 138 mmol/L (137-145); Triglycerides 80 mg/dL (<150); Uric Acid 4.6 mg/dL (2.5-7.5)
[2020-04-12 10:35] LABS: LDL Cholesterol Direct 31 mg/dL
[2020-04-15 11:24] LABS: Vitamin B1 98 nmol/L (8-30)
== END 2020-04-12 09:38 | disposition home or self-care (01) ==
PROVIDERS: PCP Internal Medicine; Visit Provider Internal Medicine
DX: E11.9 Type 2 diabetes mellitus without complications (principal); Z79.899 Other long term (current) drug therapy; M1A.9XX0 Chronic gout, unspecified, without tophus (tophi); E51.9 Thiamine deficiency, unspecified; I10 Essential (primary) hypertension; E78.2 Mixed hyperlipidemia
CPT/HCPCS: 36415; 80053; 80061; 83036; 84425; 84443; 84550

== ENCOUNTER 2020-04-22 13:43 | Outpatient (CLI) | payer MEDICARE, SELFPAY ==
--- NOTE | ~2020-04-22 | CT_ITS ---
EXAMINATION: CT brain wo/w con DATE: 04/22/2020 14:35 INDICATION: Ptosis of right eyelid TECHNIQUE: Computed tomography (CT) of the head was performed without and subsequently with 100 cc Om nipaque 350 intravenous contrast. The mA was adjusted according to patient size. Iterative reconstruc tion technique was employed. Exam dose: 1210.67 mGy-cm total exam DLP. COMPARISON: 01/21/2020 CT brain FINDINGS: No intracranial mass lesion or hemorrhage or cerebrovascular accident is evident. No midlin e shift or mass effect effect. There is a focal asymmetric area of contrast enhancement in the right frontal parietal area (series 5 image 37) which is consistent with benign developmental venous anomaly (DVA). No subdural or epidural hematoma. Left frontal sinus is not developed. The paranasal sinuses and mast oid air cells are otherwise unremarkable. No fracture or bone destruction of the cranial vault. IMPRESSION: Developmental venous anomaly of right frontoparietal area, not likely of clinical signif icance Reviewed, dictated and finalized at Location [facility]. Reviewed, dictated and finalized at location A. IMPRESSION: Developmental venous anomaly of right frontoparietal area, not lik jaron of clinical significance
== END 2020-04-22 13:44 | disposition home or self-care (01) ==
PROVIDERS: PCP Internal Medicine; Visit Provider Internal Medicine
DX: H02.401 Unspecified ptosis of right eyelid (principal)
CPT/HCPCS: 70470; Q9967

== ENCOUNTER 2020-04-26 10:58 | Outpatient (CLI) | payer MEDICARE, SELFPAY ==
[2020-04-26 11:48] LABS: Anion Gap 6 mmol/L (8-16); Blood Urea Nitrogen 29 mg/dL (7-17); Calcium 10.1 mg/dL (8.4-10.2); Carbon Dioxide 37 mmol/L (22-30); Chloride 94 mmol/L (98-107); Estimated Glomerular Filt Rate 50; Glucose 112 mg/dL (65-105); Potassium 3.5 mmol/L (3.4-5.0); Sodium 137 mmol/L (137-145)
== END 2020-04-26 10:59 | disposition home or self-care (01) ==
LOC: ANHLAB 11:02
PROVIDERS: PCP Internal Medicine; Visit Provider Internal Medicine
DX: Z79.899 Other long term (current) drug therapy (principal); I10 Essential (primary) hypertension
CPT/HCPCS: 36415; 80048

== ENCOUNTER 2020-04-26 15:07 | Inpatient (IN) | payer MEDICARE, SELFPAY ==
[2020-04-26] VITALS (31 sets, daily range): BP systolic 77–133; BP diastolic 38–76; PULSE 70–87; RESP 11–30; TEMP 36.6; O2SAT 91–99; BMI 40.8
--- NOTE | ~2020-04-26 | CT_ITS ---
EXAMINATION: CT brain wo con EXAM DATE: 04/26/2020 15:44 INDICATION: Fell, left-sided head injury. History of multiple falls. TECHNIQUE: Spiral CT of the head was performed without contrast. Axial, coronal and sagittal images were reviewed. The dose-length product (DLP) for this examination was 605.33 mGy-cm. The exposure w as tailored according to patient size, and iterative reconstruction (ASIR) was used as additional dos e reduction technique. Comparison is made to prior examination from 04/22/2020. FINDINGS: There is no acute intraparenchymal hemorrhage. No evidence of intraparenchymal brain mass lesion. No evidence of acute infarction. Please note that initial head CT has limited sensitivity f or small or acute infarctions. There is mild periventricular and subcortical hypodensity, nonspecific but probably related to small vessel ischemic disease. There is mild prominence of the sulci and v entricles related to cerebral atrophy. There is intracranial carotid arteriosclerosis. There are n o extra-axial collections. There is no mass effect or midline shift. Patient has had bilateral ocul ar lens surgery. Soft tissue is unremarkable. The visualized sinuses and mastoid air cells are well aerated. Previously seen right frontal developmental venous anomaly not identified without contrast, but not a clinically significant finding. IMPRESSION: 1. No acute intracranial findings. 2. Chronic age related findings. Reviewed, dictated and finalized at location A.
--- NOTE | ~2020-04-26 | CT_ITS ---
EXAMINATION: CT [facility] EXAM DATE: 04/26/2020 15:44 INDICATION: Fall, head injury. TECHNIQUE: Spiral CT of the cervical spine was performed without contrast. Axial images were reviewe d. Coronal and sagittal reformatted images were also reviewed. The dose-length product (DLP) for thi s examination was 506.79 mGy-cm. The exposure was tailored according to patient size (auto mA exposu re control), and iterative reconstruction (ASIR) was used as additional dose reduction technique. ere is no prior study for comparison. FINDINGS: Linear right upper lobe opacity consistent with scarring. There is no evidence of acute cer vical fracture. The odontoid process is intact. Pre-dens space is normal. Prevertebral soft tissue is normal. There are no soft tissue abnormalities identified. There is no disc space widening or t raumatic vertebral body subluxation suspected. Mild to moderate disc disease at C6-7, mild at C5-6. Overall mild to moderate cervical arthropathy. A detailed level by level evaluation of spondylosis c an be added as addendum if requested. IMPRESSION: 1. No acute cervical fracture. 2. Mild to moderate cervical spondylosis. Reviewed, dictated and finalized at location A.
--- NOTE | ~2020-04-26 | XR_ITS ---
EXAMINATION: XR chest port-a-cath/central EXAM DATE: 04/26/2020 17:54 INDICATION: Post central line insertion. TECHNIQUE: Portable AP frontal chest x-ray was obtained. Comparison is made to prior examination from 04/26/2020. FINDINGS: There is a new right-sided subclavian venous line, tip projecting over cavoatrial junction region, expected position. There is no evidence of postprocedure pneumothorax. No acute airspace dise ase or pleural effusion. Cardiomediastinal silhouette is normal. There are no osseous abnormalities i dentified. IMPRESSION: No acute cardiopulmonary findings. Reviewed, dictated and finalized at location A.
--- NOTE | ~2020-04-26 | XR_ITS ---
EXAMINATION: XR chest 1V portable EXAM DATE: 04/26/2020 16:04 INDICATION: Weakness, hypotension. History asthma. History of hypertension. TECHNIQUE: Portable AP frontal chest x-ray was obtained. Comparison is made to prior examination from 11/27/2019. FINDINGS: The lungs are clear. There are no pleural effusions. The cardiomediastinal silhouette is within normal limits. There is no pneumothorax suspected. The bones and soft tissues are unremarkab le. IMPRESSION: No acute cardiopulmonary findings. Reviewed, dictated and finalized at location A.
--- NOTE | 2020-04-26 15:18 | ECG_ITS ---
Measurements Intervals [place] Rate: 80 P: 240 MT: 296 QRS: -28 QRSD: 106 T: 66 QT: 417 QTc: 482 Interpretive Statements SINUS RHYTHM DELAYED PRECORDIAL R/S TRANSITION VOLTAGE CRITERIA FOR LVH MINIMAL Q WAVES- HIGH LATERAL LEADS BASELINE ARTIFACT- I, II, III, AVR, AVL, AVF, V1-V2, V6 BORDERLINE ECG Electronically Signed On 04-27-2020 10:23:05 CDT by Estevan Hawthorne D.O.
--- NOTE | 2020-04-26 15:21 | ED.GENADULT ---
HPI - General Adult General Chief complaint: Weakness Stated complaint: FALLS/HYPOTENSION Time Seen by Provider: 04/26/20 15:13 Source: patient History of Present Illness HPI narrative: Patient is a 64 y/o female complaining of fall and hitting her head. She states that she has been falling frequently during last 3-4 months. She fell today around 12:00 PM while she was getting into car near a restaurant. She struck head on the car when she fell. She was able to get up after the fall and drove herself home. She has some left sided headache. She describes her headache as aching and rates it as 2/10. There is no alleviating or exacerbating factor. She also has some neck pain and double vision. She has no focal weakness or numbness. She continues to have headache and double vision after getting home. She then called EMS and was brought here. Related Data Home Medications Medication Instructions Recorded Confirmed clonazepam 1 mg tablet 1 mg PO .COMPLEX 09/09/19 04/26/20 duloxetine 60 mg capsule,delayed 120 mg PO DAILY cap 09/09/19 04/26/20 release magnesium 250 mg tablet 500 mg PO HS tablet 09/09/19 04/26/20 multivitamin 1 cap PO DAILY 09/09/19 04/26/20 polyethylene glycol 3350 17 17 gm PO DAILY PRN 09/09/19 04/26/20 gram/dose oral powder sumatriptan succinate 100 mg tablet See Rx Instructions PO .COMPLEX 09/09/19 04/26/20 carvedilol 3.125 mg tablet 6.25 mg PO Q12H tablet 09/17/19 04/26/20 potassium chloride 20 mEq 40 meq PO DAILY tablet 09/17/19 04/26/20 tablet,extended release mirtazapine 30 mg PO QPM 12/12/19 04/26/20 triamcinolone acetonide 1 applic TOPICAL BID PRN 12/12/19 04/26/20 gabapentin 100 mg capsule 100 mg PO TID 12/17/19 04/26/20 albuterol sulfate 90 mcg/actuation 4 puff INHALATION Q4-6H PRN g 01/16/20 04/26/20 aerosol inhaler allopurinol 200 mg PO DAILY 04/26/20 04/26/20 furosemide 40 mg PO DAILY 04/26/20 04/26/20 lamotrigine 200 mg PO DAILY 04/26/20 04/26/20 losartan 25 mg PO DAILY 04/26/20 04/26/20 meloxicam 15 mg PO DAILY 04/26/20 04/26/20 olanzapine 10 mg PO HS 04/26/20 04/26/20 spironolactone 50 mg PO BID 04/26/20 04/26/20 Allergies Allergy/AdvReac Type Severity Reaction Status Date / Time clindamycin Allergy Intermediate Hives Verified 04/26/20 09:44 lithium AdvReac Severe Hallucinati Verified 04/26/20 09:44 ng zolpidem AdvReac Severe Hallucinati Verified 04/26/20 09:44 ng pregabalin [From Lyrica] AdvReac Mild HAIR LOSS Verified 04/26/20 09:44 topiramate [From Topamax] AdvReac Mild Hallucinati Verified 04/26/20 09:44 ng ziprasidone [From Geodon] AdvReac Mild Confusion Verified 04/26/20 09:44 ORAL STEROIDS AdvReac Depression Uncoded 04/26/20 09:44 Review of Systems Constitutional: Constitutional: Denies chills, Denies fever(s), Reports headache(s) and Denies weakness Eyes: Eyes: Reports diplopia ENT: Reports headache(s) and Reports neck pain Cardiovascular: Cardiovascular: Denies chest pain and Denies dyspnea Respiratory: Respiratory: Denies cough and Denies dyspnea Gastrointestinal: Gastrointestinal: Denies abdominal pain, Denies diarrhea, Denies nausea and Denies vomiting Genitourinary: Genitourinary: Denies hematuria and Denies dysuria Musculoskeletal: Musculoskeletal: Denies back pain and Denies neck pain Neurologic: Reports headache(s) and Denies weakness [facility] Past Medical History Medical History Abnormal finding of blood chemistry ANITA-inhibitor cough Ankle fracture Back pain Benign essential hypertension Bilateral carpal tunnel syndrome Bipolar affect, depressed Body mass index (BMI) 40.0-44.9, adult Bruit Chest pain Chronic constipation Chronic cough Compression fracture of T4 vertebra Depression Encounter for Medicare annual wellness exam Encounter to establish care Fever Folliculitis Follow up Gait instability GERD (gastroesophageal reflux disease) Gout Hearing loss Hiatal hernia Hyperlipidemia
[2020-04-26] MEDS: SODIUM CHLORIDE 0.9% IV 1,000 ML 999 ML IV CONT ×2 (15:30→16:26)
[2020-04-26 15:39] LABS: Basophils Absolute Auto 0.1 K/mm3 (0.0-0.1); Basophils Percent Auto 0.7 % (0.2-1.2); Eosinophils Absolute Auto 0.1 K/mm3 (0-0.3); Hematocrit 42.5 % (37.0-47.0); Hemoglobin 13.7 g/dL (12.0-15.0); Immature Granulocyte Absolute 0.02 K/mm3 (0.00-0.031); Immature Granulocyte Percent A 0.3 % (0-0.5); Lymphocytes Absolute Auto 1.46 K/mm3 (0.9-3.2); Mean Corpuscular HGB Conc 32.2 g/dl (32-36); Mean Corpuscular Hemoglobin 28.7 pg (26-34); Mean Corpuscular Volume 89.1 fl (80-100); Mean Platelet Volume 9.9 fl (7.4-10.4); Monocytes Absolute Auto 0.6 K/mm3 (0.1-0.6); Monocytes Percent Auto 8.3 % (2.6-8.5); Neutrophils Absolute Auto 4.7 K/mm3 (1.3-6.7); Neutrophils Percent Auto 67.7 % (45.5-73.1); Platelet Count Result 316 k/mm3 (150-375); Red Blood Count 4.77 M/mm3 (4.2-5.4)
[2020-04-26 15:57] LABS: Alanine Aminotransferase 51 U/L (4-35); Albumin Level 4.3 g/dL (3.5-5.1); Alkaline Phosphatase 122 U/L (38-126); Anion Gap 8 mmol/L (8-16); Aspartate Amino Transferase 32 U/L (14-36); Bilirubin,Total 0.4 mg/dL (0.2-1.3); Blood Urea Nitrogen 29 mg/dL (7-17); Calcium 10.2 mg/dL (8.4-10.2); Carbon Dioxide 32 mmol/L (22-30); Chloride 95 mmol/L (98-107); Estimated Glomerular Filt Rate 30; Glucose 108 mg/dL (65-105); Sodium 135 mmol/L (137-145)
[2020-04-26] MEDS: POTASSIUM CHLORIDE 20 MEQ TABLET 40 MEQ PO (16:26)
[2020-04-26 16:31] LABS: Lactic Acid Reflex 1.9 mmol/L (0.7-2.1)
[2020-04-26 16:38] LABS: Add Urine Microscopic? YES; Appearance Urine Cloudy (Clear); Bilirubin Urine Negative (Negative); Blood Urine 1+ (Negative); Color Urine Yellow (Yellow); Glucose Urine UA Negative (Negative); Hyaline Casts Urine 20-29 /lpf; Ketones Urine Negative (Negative); Leukocyte Esterase Ur Negative LEU/UL (Negative); Mucus Urine Rare /lpf; Nitrate Urine Negative (Negative); Protein Urine Negative (Negative); Urobilinogen Urine Negative mg/dL (<2.0); WBC Urine 0-3 /hpf
[2020-04-26 16:43] LABS: Troponin I < 0.012 ng/mL (0.000-0.034)
[2020-04-26] MEDS: NOREPINEPHRINE 8 MG/D5W 250 ML 8 MG/250 ML BAG 9.38 MG IV CONT (18:04)
--- NOTE | 2020-04-26 18:42 | ADMGEN ---
This patient, Ifeoma Tavares, was admitted to Intensive Care Unit-3 at 1840. Patient/family oriented to hospital policies and general routines including ID bracelet, bed and alarms, visiting hours, pain management, procedures, bathroom and other care routines, personal items, smoking policy, room service/diet, and visiting hours. Information on how to activate the Rapid Response Team has been discussed. Patient/Family are encouraged to report perceived risks to care and to ask questions if they do not understand what they are told or what they should do.
[2020-04-26] MEDS: SODIUM CHLORIDE 0.9% IV 1,000 ML 125 ML IV CONT (18:59)
[2020-04-26 19:34] LABS: Troponin I < 0.012 ng/mL (0.000-0.034)
--- NOTE | 2020-04-26 19:42 | PM.IMHP ---
H&P: HPI History of Present Illness Date/Time: 04/26/20 19:42 Chief Complaint: Acute fall and head trauma today Narrative: This is a pleasant morbidly obese diabetic 64-year-old female with known history of asthma, chronic hypertension, peripheral neuropathy, and episodes of transient global amnesia among many other comorbidities who presented to the hospital today after suffering a fall outside of a restaurant and hitting her head on the wheel of her car. The patient is known to have episodes of transient global amnesia when her oxygen levels are low in the past. She reports having various episodes of transient global amnesia, the last of which was about a week ago when she was driving and suddenly noticed she was in a strange location. She had driven off course for approximately 1-1/2 hours before she realized which she was doing. She also reports having increased frequent falls recently. Over the past week she has fallen approximately 12 times and she attributes this to simply losing her balance. She denies any significant weakness or debility. The patient also denies loss of consciousness or seizure-like activity. Today the patient was coming out of a restaurant when suddenly she lost her balance fell and struck the left side of her head on the tire of her car. Afterwards she had approximately 3 hours of double vision and headache which have resolved now. Of note the patient did have a blood pressure of 60/40 mmHg after she fell. The patient denies any significant fevers, chills, coughing, chest pain, headache, nausea, vomiting, palpitations, abdominal pain, dysuria, hematuria, diarrhea, black tarry stools, bloody stools, or lower extremity swelling. She also denies any numbness, tingling, or focal weakness. She denies any past episodes of double vision although she does remark that over the past few months family members have remarked that her right eye looks droopy. Other associated symptoms include mild exertional shortness of breath which seems to be chronic. The patient was evaluated emergency room this evening and CT brain was unremarkable for any acute pathology. The patient was treated with 2 L of normal saline IV bolus which did not improve her blood pressure in the emergency room. A subclavian central line was placed in the patient was started on norepinephrine. The patient was admitted to the hospital for further care. Nursing staff has reported to me that she did mention that her Lasix dose was just lowered by her primary care doctor from 80-40 mg. Review of Systems Review of Systems: All systems reviewed & are unremarkable except as noted in HPI and below PMFSH Past Medical History Medical History Abnormal finding of blood chemistry ANITA-inhibitor cough Ankle fracture Back pain Benign essential hypertension Bilateral carpal tunnel syndrome Bipolar affect, depressed Body mass index (BMI) 40.0-44.9, adult Bruit Chest pain Chronic constipation Chronic cough Compression fracture of T4 vertebra Depression Encounter for Medicare annual wellness exam Encounter to establish care Fever Folliculitis Follow up Gait instability GERD (gastroesophageal reflux disease) Gout Hearing loss Hiatal hernia Hyperlipidemia IBS (irritable bowel syndrome) Insomnia Migraines Numbness and tingling of upper extremity Nummular eczema On [facility] drug therapy BREE on CPAP Peripheral edema Peripheral neuropathy Ptosis, right eyelid PTSD (post-traumatic stress disorder) Raynauds disease Seizure disorder Shoulder pain, right SOB (shortness of breath) Stress Stress incontinence Tardive dyskinesia Transient global amnesia Type 2 diabetes mellitus without complications Urine incontinence Vitamin B1 deficiency Surgical History Surgical History History of bladder suspension procedure History of cholecystectomy 2019 History
--- NOTE | 2020-04-26 21:03 | PC.NURSE ---
Spoke with Dr. Soto, may consult neurology in AM.
[2020-04-26] MEDS: PANTOPRAZOLE 40 MG TABLET PO (22:16)
[2020-04-26] MEDS: SUCRALFATE 1 GM TABLET 2 GM PO (22:16)
[2020-04-26 22:31] LABS: Troponin I 0.015 ng/mL (0.000-0.034)
[2020-04-26] MEDS: CENTRAL LINE FLUSH 10 ML IV PUSH (22:34)
[2020-04-27] VITALS (18 sets, daily range): BP systolic 90–118; BP diastolic 43–60; PULSE 55–93; RESP 12–28; TEMP 36.5–36.7; O2SAT 91–97
[2020-04-27] MEDS: SODIUM CHLORIDE 0.9% IV 1,000 ML 125 ML IV CONT (03:12)
[2020-04-27 04:34] LABS: Basophils Percent Auto 0.4 % (0.2-1.2); Eosinophils Absolute Auto 0.2 K/mm3 (0-0.3); Eosinophils Percent Auto 3.7 % (0-4.4); Hematocrit 36.3 % (37.0-47.0); Hemoglobin 11.6 g/dL (12.0-15.0); Immature Granulocyte Absolute 0.02 K/mm3 (0.00-0.031); Immature Granulocyte Percent A 0.4 % (0-0.5); Lymphocytes Absolute Auto 1.55 K/mm3 (0.9-3.2); Mean Corpuscular Hemoglobin 28.6 pg (26-34); Mean Corpuscular Volume 89.4 fl (80-100); Mean Platelet Volume 9.8 fl (7.4-10.4); Monocytes Absolute Auto 0.5 K/mm3 (0.1-0.6); Monocytes Percent Auto 10.3 % (2.6-8.5); Neutrophils Absolute Auto 2.6 K/mm3 (1.3-6.7); Neutrophils Percent Auto 53.2 % (45.5-73.1); Platelet Count Result 240 k/mm3 (150-375); Red Blood Count 4.06 M/mm3 (4.2-5.4); Red Cell Distribution Width 16.2 % (11.5-14.5); White Blood Count 4.9 K/mm3 (4.5-10.0)
[2020-04-27] MEDS: CENTRAL LINE FLUSH 10 ML IV PUSH ×3 (04:37→20:47)
[2020-04-27 04:50] LABS: Anion Gap 1 mmol/L (8-16); Blood Urea Nitrogen 24 mg/dL (7-17); Calcium 8.9 mg/dL (8.4-10.2); Carbon Dioxide 29 mmol/L (22-30); Chloride 104 mmol/L (98-107); Estimated CRCL calculation 64 ml/min; Estimated Glomerular Filt Rate 56; Glucose 96 mg/dL (65-105); Magnesium 1.5 mg/dL (1.6-2.3); Potassium 3.5 mmol/L (3.4-5.0); Sodium 134 mmol/L (137-145)
[2020-04-27 05:40] LABS: Cortisol Random 1.08 ug/dL
[2020-04-27] MEDS: allopurinoL 100 MG TABLET 200 MG PO (07:41)
[2020-04-27] MEDS: lamoTRIgine 100 MG TABLET 200 MG PO (07:41)
[2020-04-27] MEDS: POTASSIUM CHLORIDE 20 MEQ TABLET.ER 40 MEQ PO (07:42)
[2020-04-27] MEDS: PANTOPRAZOLE 40 MG TABLET PO ×2 (07:42→20:44)
[2020-04-27] MEDS: ATORVASTATIN 10 MG TABLET PO (07:42)
[2020-04-27] MEDS: MULTIVITAMINS THERAPEUTIC TAB (*BKC) 1 TABLET PO (07:42)
[2020-04-27 07:47] LABS: Glucose Point of Care 94 (65-105)
[2020-04-27] MEDS: FLUTICASONE PROP 110 MCG INHALER 12 GM (*SP) 2 PUFF INHALATION (08:15)
[2020-04-27] MEDS: MAGNESIUM OXIDE 400 MG TABLET PO (09:39)
--- NOTE | 2020-04-27 11:27 | WPDNEURCNPN ---
Assessment and Plan Assessment and plan (1) Transient global amnesia: Code(s): G45.4 - Transient global amnesia Status: Chronic Additional Plan history of recurrent transient global amnesia and also history of falls, I will obtain the EEG in addition will consider the EMG nerve conduction studies of the lower extremities, she will need the MRI of the brain Consult date: 04/27/20 Time Seen: 10:30 HPI: Ifeoma Tavares is a 64 year old female admitted to the hospital for acute fall resulting in the head trauma and with ongoing history of 1. Bronchial asthma 2. Chronic hypertension 3. Peripheral neuropathy 4. Episodic transient global amnesia. Patient suffered a fall outside a restaurant with close head trauma on the wheel of her car but she also reported various episodes of transient global amnesia is with episode about a week ago when she drove around a strange location and realizing after 1-1/2hours what she was doing she also gave history of frequent falls in fact mention 12 falls over the last 12 weeks to she gave no history of seizure-like activity she was evaluated in the emergency room where CT scan of the head was negative for acute bleed she was treated symptomatically with IV fluids. She has ongoing history of multiple medical problems as outlined, an MRI of the head cannot be done because she has a bladder stimulator, routine lab is nonsignificant with borderline electrolytes and BUN of 24 GFR 56 , negative CT scan of the head for CT of the cervical spine revealed changes compatible with spondylosis though chest x-ray is negative, at present she is receiving all her medications including insulin Review of Systems Review of Systems: All systems reviewed & are unremarkable except as noted in HPI and below PMFSH Past Medical History Medical History Abnormal finding of blood chemistry ANITA-inhibitor cough Ankle fracture Back pain Benign essential hypertension Bilateral carpal tunnel syndrome Bipolar affect, depressed Body mass index (BMI) 40.0-44.9, adult Bruit Chest pain Chronic constipation Chronic cough Compression fracture of T4 vertebra Depression Encounter for Medicare annual wellness exam Encounter to establish care Fever Folliculitis Follow up Gait instability GERD (gastroesophageal reflux disease) Gout Hearing loss Hiatal hernia Hyperlipidemia IBS (irritable bowel syndrome) Insomnia Migraines Numbness and tingling of upper extremity Nummular eczema On shelter drug therapy BREE on CPAP Peripheral edema Peripheral neuropathy Ptosis, right eyelid PTSD (post-traumatic stress disorder) Raynauds disease Seizure disorder Shoulder pain, right SOB (shortness of breath) Stress Stress incontinence Tardive dyskinesia Transient global amnesia Type 2 diabetes mellitus without complications Urine incontinence Vitamin B1 deficiency Surgical History Surgical History History of bladder suspension procedure History of cholecystectomy 2018 History of colonoscopy with polypectomy Dr Gold Patricio 10/16/2016. History of partial hysterectomy S/P rotator cuff repair Family History Family History Mother AML (acute myeloblastic leukemia) Hypertension COPD (chronic obstructive pulmonary disease) Father Renal cell cancer Sibling Asthma Hypertension POTS (postural orthostatic tachycardia syndrome) Fibromyalgia Social History Social History Smoking status: Never smoker Alcohol intake: current Drinks per week: 2 Substance use: never Gender identity (if verbalized by the patient): Female Spiritual care concerns: No Meds Home Medications and Allergies Home Medications Medication Instructions Recorded Confirmed Type clonazepam 1 mg tablet 1 mg PO .COMPLEX 09/09/19 04/26/20 History dulo
[2020-04-27 11:56] LABS: Glucose Point of Care 84 (65-105)
--- NOTE | 2020-04-27 12:30 | WPDCNINT ---
Assessment and Plan Assessment and plan (1) Hypotension: Qualifiers: Hypotension type: unspecified hypotension type Qualified Code(s): I95.9 - Hypotension, unspecified Code(s): I95.9 - Hypotension, unspecified Status: Acute Assessment and Plan: Resolved and likely due to dehydration and excessive blood pressure medication. All of which have been held. Will discontinue IV fluids since she is having great urine output and her renal function has normalized and she is eating and drinking. She can be transferred to the medical sadler. (2) Fall: Qualifiers: Encounter type: initial encounter Qualified Code(s): W19.XXXA - Unspecified fall, initial encounter Code(s): W19.XXXA - Unspecified fall, initial encounter Status: Acute (3) BLESSING (acute kidney injury): Code(s): N17.9 - Acute kidney failure, unspecified Status: Acute Additional Plan Code status: Full code Critical care time spent: 31 minutes This dictation may have been done utilizing a voice recognition system. Attempts have been made to correct errors. However, there may be uncorrected grammatical, spelling, and recognition errors present. Due to a high probability of clinically significant, life threatening deterioration, the patient required my highest level of preparedness to intervene emergently and I personally spent this critical care time directly and personally managing the patient. This critical care time included obtaining a history; examining the patient; pulse oximetry; ordering and review of studies; arranging urgent treatment with development of a management plan; evaluation of patient's response to treatment; frequent reassessment; and discussions with other providers. It was exclusive of separately billable procedures and treating other patients and teaching time. Please see Assessment and Plan section and the rest of the note for further information on patient assessment and treatment Operations Trainer Consult Note Consult date: 04/27/20 Time Seen: 09:00 HPI: Ifeoma Tavares is a 64 year old female Who presented yesterday with falling and head trauma. CT head was normal but she was found to be hypotensive and in acute kidney injury from dehydration. She is on diuretic medications and recently her losartan was Bigg was increased in dose. She was hypotensive after couple of L of crystalloids and will was admitted to the intensive care unit on vasopressors. Vasopressors have been weaned off last night and her blood pressure and heart rate are stable. She is making good urine output on IV fluids will be discontinued. She has no signs or symptoms of sepsis or Or cardiac conditions to explain the hypotension other than dehydration and too much blood pressure medication. Review of Systems Review of Systems: All systems reviewed & are unremarkable except as noted in HPI and below PMFSH Past Medical History Medical History Abnormal finding of blood chemistry ANITA-inhibitor cough Ankle fracture Back pain Benign essential hypertension Bilateral carpal tunnel syndrome Bipolar affect, depressed Body mass index (BMI) 40.0-44.9, adult Bruit Chest pain Chronic constipation Chronic cough Compression fracture of T4 vertebra Depression Encounter for Medicare annual wellness exam Encounter to establish care Fever Folliculitis Follow up Gait instability GERD (gastroesophageal reflux disease) Gout Hearing loss Hiatal hernia Hyperlipidemia IBS (irritable bowel syndrome) Insomnia Migraines Numbness and tingling of upper extremity Nummular eczema On terminal make up operator drug therapy BREE on CPAP Peripheral edema Peripheral neuropathy Ptosis, right eyelid PTSD (post-traumatic stress disorder) Raynauds disease Seizure disorder Shoulder pain, right SOB (shortness of breath) Stress Stress incontinence Tardive dyskinesia Transient global amnesia Type 2 diabetes maria antonia
[2020-04-27] MEDS: ACETAMINOPHEN 325 MG TABLET 650 MG PO (14:28)
[2020-04-27] MEDS: SUMAtriptan SUCCINATE 25 MG TABLET 100 MG PO (14:54)
--- NOTE | 2020-04-27 16:03 | PM.IMPN ---
Progress Note: A&P Assessment and Plan (1) Arterial hypotension: Qualifiers: Hypotension type: unspecified hypotension type Qualified Code(s): I95.9 - Hypotension, unspecified Code(s): I95.9 - Hypotension, unspecified Status: Acute Assessment and Plan: Likely secondary to overmedication or dehydration. The patient has been admitted to ICU, telemetry, Continue Levophed and IV fluids. Flatbed Owner Operator has been consulted. Check ACTH and serum cortisol. 04/27/20 16:03 patient is 64 year morbidly obese apparently patient had a fall yesterday and struck her head on to her car there was no loss of conscious patient was able to get up and drove home however continue to have headache and blurry vision and decided to call EMS and patient was brought to the emergency department further evaluation upon arrival patient was hypotensive, patient had a CT scan of the head was negative for any acute injury, hypertensive most likely secondary dehydration and recent increase in her lisinopril by her primary care, initially patient was transferred to ICU for low blood pressure, on vasopressin and patient was given IVF which did her blood pressure and now patient is clinically stable, headache has improved, blood pressure medication are on hold will continue to monitor and resume as her symptoms improve will have PT OT evaluate the patient and further recommendation to follow. (2) Diplopia: Code(s): H53.2 - Diplopia Status: Resolved Assessment and Plan: r/o TIA. Neurochecks, Echocardiogram. TSH w/ reflex T4. Neurology consult in am. (3) Falls: Qualifiers: Encounter type: initial encounter Qualified Code(s): W19.XXXA - Unspecified fall, initial encounter Code(s): W19.XXXA - Unspecified fall, initial encounter Status: Acute Assessment and Plan: The patient is complaining of losing her balance lately. We will consider MRI brain in am if the patient continues to have imbalance once her blood pressure normalizes. Continue Neurology recommendations. (4) Hypokalemia: Code(s): E87.6 - Hypokalemia Status: Acute Assessment and Plan: Potassium was replaced in the ER. Monitor serum potassium and continue to replace as needed. (5) Acute renal failure: Qualifiers: Acute renal failure type: unspecified Qualified Code(s): N17.9 - Acute kidney failure, unspecified Code(s): N17.9 - Acute kidney failure, unspecified Status: Acute Assessment and Plan: May be secondary to being overdiuresed. Monitor renal function, avoid nephrotoxic agents. Renally dose medications. Continue IV fluid challenge overnight. (6) Type 2 diabetes mellitus without complications: Qualifiers: Diabetes mellitus termite treater helper insulin use: without termite treater helper use Qualified Code(s): E11.9 - Type 2 diabetes mellitus without complications Code(s): E11.9 - Type 2 diabetes mellitus without complications Status: Chronic Assessment and Plan: Accuchecks, SSI Coverage, hypoglycemic protocol. Hold oral hypoglycemic agents secondary to ARF. Resume when appropriate. (7) Hyperlipidemia: Qualifiers: Hyperlipidemia type: mixed hyperlipidemia Qualified Code(s): E78.2 - Mixed hyperlipidemia Code(s): E78.5 - Hyperlipidemia, unspecified Status: Chronic Assessment and Plan: Continue Lipitor PO. (8) Urine incontinence: Qualifiers: Urinary Incontinence type: mixed stress and urge incontinence Qualified Code(s): N39.46 - Mixed incontinence Code(s): R32 - Unspecified urinary incontinence Status: Chronic Assessment and Plan: Contreras catheter. (9) BREE on CPAP: Code(s): G47.33 - Obstructive sleep apnea (adult) (pediatric); Z99.89 - Dependence on other enabling machines and devices Status: Chronic Assessment and Plan: Continue home CPAP (10) GERD (gastroesophageal reflux disease):
[2020-04-27 16:22] LABS: Glucose Point of Care 67 (65-105)
[2020-04-27 16:33] LABS: Glucose Point of Care 72 (65-105)
--- NOTE | 2020-04-27 17:18 | PC.NURSE ---
Pt transferred to 332 via wheelchair, report given to ART Larsen. Cpap in 332, medications given to RN, patient in room at 1718
--- NOTE | 2020-04-27 19:53 | PC.NURSE ---
[id number] This patient, Ifeoma Tavares, was received from [ICU ] on 04/27/20 at 1954. Patient/family oriented to unit policies and routines
[2020-04-27] MEDS: clonazePAM (*CRX) 0.5 MG TABLET 1 MG PO (20:43)
[2020-04-27] MEDS: SUCRALFATE 1 GM TABLET 2 GM PO (20:44)
[2020-04-27] MEDS: polyethylene glycoL 3350 17 GM POWD.PACK PO (20:59)
[2020-04-27 21:33] LABS: Glucose Point of Care 100 (65-105)
[2020-04-28] VITALS (7 sets, daily range): BP systolic 117–123; BP diastolic 73–76; PULSE 71–84; RESP 15–22; TEMP 36.1–37; O2SAT 91–96
[2020-04-28] MEDS: FLUTICASONE PROP 110 MCG INHALER 12 GM (*SP) 2 PUFF INHALATION ×2 (00:04→15:00)
[2020-04-28] MEDS: CENTRAL LINE FLUSH 10 ML IV PUSH ×3 (05:50→22:26)
[2020-04-28 08:03] LABS: Glucose Point of Care 78 (65-105)
[2020-04-28] MEDS: lamoTRIgine 100 MG TABLET 200 MG PO (09:00)
[2020-04-28] MEDS: allopurinoL 100 MG TABLET 200 MG PO (09:52)
[2020-04-28] MEDS: PANTOPRAZOLE 40 MG TABLET PO ×2 (09:52→22:18)
[2020-04-28] MEDS: POTASSIUM CHLORIDE 20 MEQ TABLET.ER 40 MEQ PO (09:53)
[2020-04-28] MEDS: MULTIVITAMINS THERAPEUTIC TAB (*BKC) 1 TABLET PO (09:53)
[2020-04-28] MEDS: ATORVASTATIN 10 MG TABLET PO (09:54)
[2020-04-28 09:57] LABS: Hematocrit 37.1 % (37.0-47.0); Hemoglobin 12.1 g/dL (12.0-15.0); Mean Corpuscular HGB Conc 32.6 g/dl (32-36); Mean Corpuscular Hemoglobin 29.2 pg (26-34); Mean Corpuscular Volume 89.6 fl (80-100); Mean Platelet Volume 9.9 fl (7.4-10.4); Platelet Count Result 243 k/mm3 (150-375); Red Blood Count 4.14 M/mm3 (4.2-5.4); Red Cell Distribution Width 16.5 % (11.5-14.5); White Blood Count 4.6 K/mm3 (4.5-10.0)
[2020-04-28] MEDS: MAGNESIUM OXIDE 400 MG TABLET PO (09:57)
[2020-04-28 10:15] LABS: Anion Gap 0 mmol/L (8-16); Blood Urea Nitrogen 14 mg/dL (7-17); Calcium 9.3 mg/dL (8.4-10.2); Carbon Dioxide 35 mmol/L (22-30); Chloride 104 mmol/L (98-107); Estimated CRCL calculation 89 ml/min; Estimated Glomerular Filt Rate > 60; Glucose 90 mg/dL (65-105); Magnesium 1.5 mg/dL (1.6-2.3); Sodium 139 mmol/L (137-145)
[2020-04-28 12:29] LABS: Glucose Point of Care 97 (65-105)
--- NOTE | 2020-04-28 14:56 | PM.IMPN ---
Progress Note: A&P Assessment and Plan (1) Arterial hypotension: Qualifiers: Hypotension type: unspecified hypotension type Qualified Code(s): I95.9 - Hypotension, unspecified Code(s): I95.9 - Hypotension, unspecified Status: Acute Assessment and Plan: Likely secondary to overmedication or dehydration. The patient has been admitted to ICU, telemetry, Continue Levophed and IV fluids. Windows Security Analyst has been consulted. Check ACTH and serum cortisol. 04/28/20 14:56 04/27/20 patient is 64 year morbidly obese apparently patient had a fall yesterday and struck her head on to her car there was no loss of conscious patient was able to get up and drove home however continue to have headache and blurry vision and decided to call EMS and patient was brought to the emergency department further evaluation upon arrival patient was hypotensive, patient had a CT scan of the head was negative for any acute injury, hypertensive most likely secondary dehydration and recent increase in her lisinopril by her primary care, initially patient was transferred to ICU for low blood pressure, on vasopressin and patient was given IVF which did her blood pressure and now patient is clinically stable, headache has improved, blood pressure medication are on hold will continue to monitor and resume as her symptoms improve will have PT OT evaluate the patient and further recommendation to follow. 04/28 today patient states feeling better denies dizziness, headache or blurry vision, patient blood pressure is still soft we are holding patient all her hypertension medications today will resume Coreg and monitor patient and monitor her blood pressure patient will work with PT OT and further recommendation to follow, I have also resumed patient psychiatry medications. If patient remains clinically stable may discharge home on Coreg and have her follow-up with her primary further evaluation and resumption of blood pressure medications (2) Diplopia: Code(s): H53.2 - Diplopia Status: Resolved Assessment and Plan: r/o TIA. Neurochecks, Echocardiogram. TSH w/ reflex T4. Neurology consult in am. (3) Falls: Qualifiers: Encounter type: initial encounter Qualified Code(s): W19.XXXA - Unspecified fall, initial encounter Code(s): W19.XXXA - Unspecified fall, initial encounter Status: Acute Assessment and Plan: The patient is complaining of losing her balance lately. We will consider MRI brain in am if the patient continues to have imbalance once her blood pressure normalizes. Continue Neurology recommendations. (4) Hypokalemia: Code(s): E87.6 - Hypokalemia Status: Acute Assessment and Plan: Potassium was replaced in the ER. Monitor serum potassium and continue to replace as needed. (5) Acute renal failure: Qualifiers: Acute renal failure type: unspecified Qualified Code(s): N17.9 - Acute kidney failure, unspecified Code(s): N17.9 - Acute kidney failure, unspecified Status: Acute Assessment and Plan: May be secondary to being overdiuresed. Monitor renal function, avoid nephrotoxic agents. Renally dose medications. Continue IV fluid challenge overnight. (6) Type 2 diabetes mellitus without complications: Qualifiers: Diabetes mellitus equipment operator intermodal yard insulin use: without fpc use Qualified Code(s): E11.9 - Type 2 diabetes mellitus without complications Code(s): E11.9 - Type 2 diabetes mellitus without complications Status: Chronic Assessment and Plan: Accuchecks, SSI Coverage, hypoglycemic protocol. Hold oral hypoglycemic agents secondary to ARF. Resume when appropriate. (7) Hyperlipidemia: Qualifiers: Hyperlipidemia type: mixed hyperlipidemia Qualified Code(s): E78.2 - Mixed hyperlipidemia Code(s): E78.5 - Hyperlipidemia, unspecified Status: Chronic Assessment and Plan: Continue Lipitor PO
[2020-04-28] MEDS: GABAPENTIN 100 MG CAPSULE PO (15:59)
[2020-04-28] MEDS: carvediloL 6.25 MG TABLET PO (16:05)
[2020-04-28] MEDS: DULoxetine HCL 60 MG CAPSULE.DR 120 MG PO (16:12)
[2020-04-28] MEDS: rOPINIRole HCL 1 MG TABLET 2 MG PO (16:13)
[2020-04-28 17:36] LABS: Glucose Point of Care 105 (65-105)
[2020-04-28] MEDS: MIRTAZAPINE 30 MG TABLET PO (17:53)
[2020-04-28] MEDS: ACETAMINOPHEN 325 MG TABLET 650 MG PO (19:48)
[2020-04-28] MEDS: clonazePAM (*CRX) 0.5 MG TABLET 2 MG PO (22:17)
[2020-04-28] MEDS: rOPINIRole HCL 1 MG TABLET 4 MG PO (22:18)
[2020-04-28] MEDS: SUCRALFATE 1 GM TABLET 2 GM PO (22:19)
[2020-04-28 23:45] LABS: Glucose Point of Care 119 (65-105)
[2020-04-29 03:06] VITALS: PULSE 73; RESP 15; O2SAT 90
[2020-04-29] MEDS: SUMAtriptan SUCCINATE 25 MG TABLET 100 MG PO (04:35)
[2020-04-29] MEDS: FLUTICASONE PROP 110 MCG INHALER 12 GM (*SP) 2 PUFF INHALATION (04:38)
[2020-04-29 04:45] VITALS: BP 133/73; PULSE 66; RESP 20; TEMP 35.8; O2SAT 97
[2020-04-29] MEDS: CENTRAL LINE FLUSH 10 ML IV PUSH (06:04)
[2020-04-29 06:33] LABS: Hematocrit 37.9 % (37.0-47.0); Hemoglobin 12.2 g/dL (12.0-15.0); Mean Corpuscular HGB Conc 32.2 g/dl (32-36); Mean Corpuscular Hemoglobin 29.2 pg (26-34); Mean Corpuscular Volume 90.7 fl (80-100); Mean Platelet Volume 9.8 fl (7.4-10.4); Platelet Count Result 242 k/mm3 (150-375); Red Blood Count 4.18 M/mm3 (4.2-5.4); Red Cell Distribution Width 16.3 % (11.5-14.5); White Blood Count 3.9 K/mm3 (4.5-10.0)
[2020-04-29 06:45] LABS: Anion Gap 0 mmol/L (8-16); Blood Urea Nitrogen 11 mg/dL (7-17); Calcium 9.8 mg/dL (8.4-10.2); Carbon Dioxide 34 mmol/L (22-30); Chloride 106 mmol/L (98-107); Estimated CRCL calculation 89 ml/min; Estimated Glomerular Filt Rate > 60; Glucose 94 mg/dL (65-105); Potassium 3.6 mmol/L (3.4-5.0); Sodium 140 mmol/L (137-145)
[2020-04-29 07:57] LABS: Glucose Point of Care 91 (65-105)
[2020-04-29 08:05] LABS: Magnesium 1.6 mg/dL (1.6-2.3)
[2020-04-29 08:45] VITALS: PULSE 72
[2020-04-29] MEDS: carvediloL 6.25 MG TABLET PO (08:45)
[2020-04-29] MEDS: clonazePAM (*CRX) 0.5 MG TABLET 1 MG PO (08:45)
[2020-04-29] MEDS: POTASSIUM CHLORIDE 20 MEQ TABLET 40 MEQ PO (08:45)
[2020-04-29] MEDS: DULoxetine HCL 60 MG CAPSULE.DR 120 MG PO (08:49)
[2020-04-29] MEDS: allopurinoL 100 MG TABLET 200 MG PO (08:50)
[2020-04-29] MEDS: metFORMIN HCL 500 MG TABLET PO (08:50)
[2020-04-29] MEDS: GABAPENTIN 100 MG CAPSULE PO (08:50)
[2020-04-29] MEDS: lamoTRIgine 100 MG TABLET 200 MG PO (08:50)
[2020-04-29] MEDS: PANTOPRAZOLE 40 MG TABLET PO (08:51)
[2020-04-29] MEDS: rOPINIRole HCL 1 MG TABLET 2 MG PO (08:51)
[2020-04-29] MEDS: POTASSIUM CHLORIDE 20 MEQ TABLET.ER 40 MEQ PO (08:51)
[2020-04-29] MEDS: MULTIVITAMINS THERAPEUTIC TAB (*BKC) 1 TABLET PO (08:51)
[2020-04-29] MEDS: MAGNESIUM OXIDE 400 MG TABLET PO (08:52)
[2020-04-29] MEDS: ATORVASTATIN 10 MG TABLET PO (08:57)
[2020-04-29 11:47] LABS: Glucose Point of Care 102 (65-105)
--- NOTE | 2020-04-29 12:13 | PM.DS ---
DS: Admitting Diagnosis Admitting Diagnosis Admitting Diagnosis: Chief Complaint: Acute fall and head trauma today DS: Discharge Diagnosis Discharge Diagnosis (1) Arterial hypotension: Qualifiers: Hypotension type: unspecified hypotension type Qualified Code(s): I95.9 - Hypotension, unspecified Code(s): I95.9 - Hypotension, unspecified Status: Acute Assessment and Plan: Likely secondary to overmedication or dehydration. The patient has been admitted to ICU, telemetry, Continue Levophed and IV fluids. Bobtailer has been consulted. Check ACTH and serum cortisol. 04/28/20 14:56 04/27/20 patient is 64 year morbidly obese apparently patient had a fall yesterday and struck her head on to her car there was no loss of conscious patient was able to get up and drove home however continue to have headache and blurry vision and decided to call EMS and patient was brought to the emergency department further evaluation upon arrival patient was hypotensive, patient had a CT scan of the head was negative for any acute injury, hypertensive most likely secondary dehydration and recent increase in her lisinopril by her primary care, initially patient was transferred to ICU for low blood pressure, on vasopressin and patient was given IVF which did her blood pressure and now patient is clinically stable, headache has improved, blood pressure medication are on hold will continue to monitor and resume as her symptoms improve will have PT OT evaluate the patient and further recommendation to follow. 04/28 today patient states feeling better denies dizziness, headache or blurry vision, patient blood pressure is still soft we are holding patient all her hypertension medications today will resume Coreg and monitor patient and monitor her blood pressure patient will work with PT OT and further recommendation to follow, I have also resumed patient psychiatry medications. If patient remains clinically stable may discharge home on Coreg and have her follow-up with her primary further evaluation and resumption of blood pressure medications (2) Diplopia: Code(s): H53.2 - Diplopia Status: Resolved Assessment and Plan: r/o TIA. Neurochecks, Echocardiogram. TSH w/ reflex T4. Neurology consult in am. (3) Falls: Qualifiers: Encounter type: initial encounter Qualified Code(s): W19.XXXA - Unspecified fall, initial encounter Code(s): W19.XXXA - Unspecified fall, initial encounter Status: Acute Assessment and Plan: The patient is complaining of losing her balance lately. We will consider MRI brain in am if the patient continues to have imbalance once her blood pressure normalizes. Continue Neurology recommendations. (4) Hypokalemia: Code(s): E87.6 - Hypokalemia Status: Acute Assessment and Plan: Potassium was replaced in the ER. Monitor serum potassium and continue to replace as needed. (5) Acute renal failure: Qualifiers: Acute renal failure type: unspecified Qualified Code(s): N17.9 - Acute kidney failure, unspecified Code(s): N17.9 - Acute kidney failure, unspecified Status: Acute Assessment and Plan: May be secondary to being overdiuresed. Monitor renal function, avoid nephrotoxic agents. Renally dose medications. Continue IV fluid challenge overnight. (6) Type 2 diabetes mellitus without complications: Qualifiers: Diabetes mellitus fpc insulin use: without termite control servicer use Qualified Code(s): E11.9 - Type 2 diabetes mellitus without complications Code(s): E11.9 - Type 2 diabetes mellitus without complications Status: Chronic Assessment and Plan: Accuchecks, SSI Coverage, hypoglycemic protocol. Hold oral hypoglycemic agents secondary to ARF. Resume when appropriate. (7) Hyperlipidemia: Qualifiers: Hyperlipidemia type: mixed hyperlipidemia Qualified Code(s): E78.2 - Mixed hyperlipidemia
[2020-04-29 13:42] VITALS: BP 133/76; PULSE 85; RESP 18; TEMP 36.6; O2SAT 95
[2020-04-30 23:27] LABS: Adrenocorticotropic Hormone <5 pg/mL (6-50)
== END 2020-04-29 13:55 | disposition home or self-care (01) | DRG 315 ==
LOC: ANHED 15:55 → ANHICU 17:53 → ANH3MEDSUR 04-27 17:20
PROVIDERS: Family Medicine; Admitting Provider Family Medicine; Emergency Provider Emergency Medicine; PCP Internal Medicine; Visit Provider Family Medicine
DX: I95.89 Other hypotension (principal); Z68.41 Body mass index [BMI] 40.0-44.9, adult; N17.9 Acute kidney failure, unspecified; E86.0 Dehydration; T50.995A Adverse effect of other drugs, medicaments and biological substances, initial encounter; E66.01 Morbid (severe) obesity due to excess calories; H53.2 Diplopia; W18.09XA Striking against other object with subsequent fall, initial encounter; G45.4 Transient global amnesia; E87.6 Hypokalemia; E78.5 Hyperlipidemia, unspecified; N39.46 Mixed incontinence; G47.33 Obstructive sleep apnea (adult) (pediatric); K21.9 Gastro-esophageal reflux disease without esophagitis; E11.42 Type 2 diabetes mellitus with diabetic polyneuropathy; G40.909 Epilepsy, unspecified, not intractable, without status epilepticus; F32.9 Major depressive disorder, single episode, unspecified; M1A.9XX0 Chronic gout, unspecified, without tophus (tophi); K58.9 Irritable bowel syndrome, unspecified; K44.9 Diaphragmatic hernia without obstruction or gangrene; F43.10 Post-traumatic stress disorder, unspecified; I73.00 Raynaud's syndrome without gangrene; Z90.49 Acquired absence of other specified parts of digestive tract; Z90.711 Acquired absence of uterus with remaining cervical stump
CPT/HCPCS: 36415; 36556; 51701; 70450; 71045; 72125; 80048; 80053; 81001; 82024; 82533; 82948; 83605; 83735; 84443; 84484; 85025; 85027; 93005; 94640; 96360; 96361; 97161; 97165; 99285; A9270; C1751; J7030

== ENCOUNTER 2020-05-10 12:09 | Outpatient (CLI) | payer MEDICARE, SELFPAY ==
--- NOTE | 2020-05-10 16:58 | WPDSIXMINUTE ---
Six Minute Walk This is a 6 minutes walk test. The test was performed and interpreted in accordance with the 2014 ERS/ATS task force guidelines. Findings: The patient's resting room air oxygen saturation measured by pulse oximetry was 94% and her heart rate was 90 bpm. Patient ambulated for 305 meters and oxygen saturation remained 89 to 96%. Heart rate at the end of the study was 111 bpm. There are no prior studies for comparison. Six Minute Walk Procedure Procedure Performed Pulmonary Stress Test (6 min walk)
== END 2020-05-10 12:10 | disposition home or self-care (01) ==
PROVIDERS: PCP Internal Medicine; Visit Provider Nurse Practitioner Family
DX: R06.00 Dyspnea, unspecified (principal)
CPT/HCPCS: 94618

== ENCOUNTER 2020-05-12 10:02 | Outpatient (CLI) | payer MEDICARE, SELFPAY ==
--- NOTE | ~2020-05-12 | CT_ITS ---
EXAMINATION: CTA brain carotid DATE: 05/12/2020 10:50 INDICATION: Transient global amnesia. TECHNIQUE: Computed tomographic angiography (CTA) of the head was performed without and with 100 mL O mnipaque-350 intravenous contrast. CTA of the neck was performed with intravenous contrast. Automated exposure control and iterative reconstruction technique were employed. The dose-length product was 1 677.86 mGy-cm. Maximum intensity projection and volume rendered 3D-reconstructions were created by brandie martel technologist on a separate workstation. COMPARISON: Head CT 04/26/2020 FINDINGS: HEAD CTA: There are scattered areas of low attenuation in the cerebral white matter, which is within normal limits for the patient's age. There is no intracranial hemorrhage, acute infarction, or abnorm al intracranial mass lesion. The ventricles are normal in size. There are likely changes of ocular le ns replacement surgeries. There is mild mucosal thickening in the paranasal sinuses. There is an old blowout fracture medial wall of right orbit. The mastoid air cells are normal. The vertebral arteries are codominant. There is no significant stenosis of basilar artery or the posterior cerebral arterie s. There is no significant stenosis of the intracranial internal carotid arteries or anterior or midd le cerebral arteries. Anterior communicating artery is normal. The posterior communicating arteries a re normal. There is no aneurysm. NECK CTA: There are no pathologically enlarged lymph nodes. There is no significant stenosis of the v ertebral arteries. There is minimal plaque in the proximal internal carotid arteries. There is 0% sarika nosis of the proximal right internal carotid artery relative to normal distal artery lumen diameter ( NASCET criteria). There is 0% stenosis of the proximal left internal carotid artery relative to crescencio l distal artery lumen diameter. There is moderate cervical spondylosis. IMPRESSION: 1. Normal aging brain. 2. No aneurysm or significant intracranial arterial stenosis. 3. 0% stenosis of the proximal internal carotid arteries relative to normal distal artery lumen diame ters (NASCET criteria). Reviewed, dictated and finalized at location A. IMPRESSION: 1. Normal aging brain. 2. No aneurysm or significant intracranial arterial stenosis. 3. 0% stenosis of the proximal internal carotid arteries relative to normal dis lina artery lumen diameters (NASCET criteria).
== END 2020-05-12 10:03 | disposition home or self-care (01) ==
PROVIDERS: PCP Internal Medicine; Visit Provider Psychiatry & Neurology Neurology
DX: G45.4 Transient global amnesia (principal)
CPT/HCPCS: 70496; 70498; Q9967

== ENCOUNTER 2020-05-19 08:53 | Outpatient (CLI) | payer MEDICARE, SELFPAY ==
[2020-05-19 09:56] LABS: Alanine Aminotransferase 38 U/L (4-35); Alkaline Phosphatase 148 U/L (38-126); Anion Gap 1 mmol/L (8-16); Aspartate Amino Transferase 29 U/L (14-36); Bilirubin,Total 0.2 mg/dL (0.2-1.3); Blood Urea Nitrogen 13 mg/dL (7-17); Calcium 9.6 mg/dL (8.4-10.2); Carbon Dioxide 34 mmol/L (22-30); Chloride 105 mmol/L (98-107); Estimated Glomerular Filt Rate > 60; Glucose 106 mg/dL (65-105); Sodium 140 mmol/L (137-145)
== END 2020-05-19 08:54 | disposition home or self-care (01) ==
PROVIDERS: PCP Internal Medicine; Visit Provider Internal Medicine
DX: I95.9 Hypotension, unspecified (principal)
CPT/HCPCS: 36415; 80053

== ENCOUNTER 2020-08-11 10:45 | Outpatient (CLI) | payer MEDICARE, SELFPAY ==
[2020-08-11 11:24] LABS: Hemoglobin A1C 5.6 % (<5.7)
[2020-08-11 11:27] LABS: Anion Gap 9 mmol/L (8-16); Blood Urea Nitrogen 14 mg/dL (7-17); Calcium 10.9 mg/dL (8.4-10.2); Carbon Dioxide 36 mmol/L (22-30); Chloride 95 mmol/L (98-107); Cholesterol 158 mg/dL (0-200); Estimated Glomerular Filt Rate > 60; Glucose 119 mg/dL (65-105); HDL Direct 80 mg/dL; Potassium 2.8 mmol/L (3.4-5.0); Sodium 140 mmol/L (137-145); Triglycerides 146 mg/dL (<150)
[2020-08-11 11:32] LABS: LDL Cholesterol Direct 40 mg/dL
[2020-08-11 12:21] LABS: Free T4 Free Thyroxine 1.12 ng/mL (0.78-2.19)
[2020-08-14 09:44] LABS: Vitamin B1 38 nmol/L (8-30)
[2020-08-14 11:03] LABS: Vitamin B6 19.6 ng/mL (2.1-21.7)
[2020-08-17 11:50] LABS: Vitamin B2 11.6 nmol/L (6.2-39.0)
== END 2020-08-11 10:46 | disposition home or self-care (01) ==
PROVIDERS: PCP Internal Medicine; Visit Provider Internal Medicine
DX: E11.9 Type 2 diabetes mellitus without complications (principal); E51.9 Thiamine deficiency, unspecified; Z79.899 Other long term (current) drug therapy; I10 Essential (primary) hypertension
CPT/HCPCS: 36415; 80048; 80061; 83036; 84207; 84252; 84425; 84439; 84443

== ENCOUNTER 2020-08-13 15:04 | Outpatient (CLI) | payer MEDICARE, SELFPAY ==
[2020-08-13 16:36] LABS: Blood Urea Nitrogen 20 mg/dL (7-17); Calcium 10.5 mg/dL (8.4-10.2); Carbon Dioxide > 40 mmol/L (22-30); Chloride 92 mmol/L (98-107); Estimated Glomerular Filt Rate 45; Glucose 114 mg/dL (65-105); Potassium 2.9 mmol/L (3.4-5.0); Sodium 138 mmol/L (137-145)
== END 2020-08-13 15:05 | disposition home or self-care (01) ==
PROVIDERS: PCP Internal Medicine; Visit Provider Internal Medicine
DX: E87.6 Hypokalemia (principal)
CPT/HCPCS: 36415; 80048

== ENCOUNTER 2020-08-17 11:23 | Outpatient (CLI) | payer MEDICARE, SELFPAY ==
[2020-08-17 12:07] LABS: Anion Gap 6 mmol/L (8-16); Blood Urea Nitrogen 12 mg/dL (7-17); Calcium 10.5 mg/dL (8.4-10.2); Carbon Dioxide 38 mmol/L (22-30); Chloride 95 mmol/L (98-107); Estimated Glomerular Filt Rate > 60; Glucose 109 mg/dL (65-105); Potassium 3.1 mmol/L (3.4-5.0); Sodium 139 mmol/L (137-145)
== END 2020-08-17 11:24 | disposition home or self-care (01) ==
PROVIDERS: PCP Internal Medicine; Visit Provider Internal Medicine
DX: E87.6 Hypokalemia (principal)
CPT/HCPCS: 36415; 80048

== ENCOUNTER 2020-08-25 09:04 | Outpatient (CLI) | payer MEDICARE, SELFPAY ==
[2020-08-25 10:01] LABS: Anion Gap 6 mmol/L (8-16); Blood Urea Nitrogen 14 mg/dL (7-17); Calcium 10.3 mg/dL (8.4-10.2); Carbon Dioxide 30 mmol/L (22-30); Chloride 105 mmol/L (98-107); Estimated Glomerular Filt Rate > 60; Glucose 108 mg/dL (65-110); Potassium 4.3 mmol/L (3.4-5.0); Sodium 141 mmol/L (137-145)
== END 2020-08-25 09:05 | disposition home or self-care (01) ==
PROVIDERS: PCP Internal Medicine; Visit Provider Internal Medicine
DX: E87.6 Hypokalemia (principal)
CPT/HCPCS: 36415; 80048

== ENCOUNTER 2020-11-10 10:13 | Outpatient (CLI) | payer MEDICARE, SELFPAY ==
--- NOTE | ~2020-11-10 | XR_ITS ---
XR chest 2V DATE: 11/10/2020 10:50 INDICATION: Shortness of breath TECHNIQUE: PA and lateral views COMPARISON: 04/26/2020 portable AP chest 09/22/2019 CT thorax FINDINGS: Heart size is borderline. No hilar or mediastinal enlargement. No pulmonary infiltrate or c onsolidation, pleural effusion or pulmonary vascular congestion or pneumothorax. There is moderate stable anterior wedging of T9 consistent with compression fracture since 09/22/2019. IMPRESSION: No active pulmonary disease Borderline heart size Chronic stable T9 compression fracture since 09/22/2019 CT thorax examination Reviewed, dictated and finalized at location A.
[2020-11-10 11:01] LABS: Basophils Absolute Auto 0.1 K/mm3 (0.0-0.1); Basophils Percent Auto 0.9 % (0.2-1.2); Eosinophils Absolute Auto 0.3 K/mm3 (0-0.3); Hematocrit 40.6 % (37.0-47.0); Hemoglobin 12.5 g/dL (12.0-15.0); Immature Granulocyte Absolute 0.02 K/mm3 (0.00-0.031); Immature Granulocyte Percent A 0.3 % (0-0.5); Lymphocytes Absolute Auto 1.69 K/mm3 (0.9-3.2); Lymphocytes Percent Auto 24.2 % (18.3-44.2); Mean Corpuscular HGB Conc 30.8 g/dl (32-36); Mean Corpuscular Hemoglobin 28.2 pg (26-34); Mean Corpuscular Volume 91.4 fl (80-100); Mean Platelet Volume 10.1 fl (7.4-10.4); Monocytes Absolute Auto 0.4 K/mm3 (0.1-0.6); Monocytes Percent Auto 5.7 % (2.6-8.5); Neutrophils Absolute Auto 4.5 K/mm3 (1.3-6.7); Neutrophils Percent Auto 64.9 % (45.5-73.1); Platelet Count Result 304 k/mm3 (150-375); Red Blood Count 4.44 M/mm3 (4.2-5.4); Red Cell Distribution Width 16.1 % (11.5-14.5)
[2020-11-10 11:06] LABS: Hemoglobin A1C 5.4 % (<5.7)
[2020-11-10 11:11] LABS: CRP < 0.5 mg/dL (<1.0)
[2020-11-10 11:25] LABS: Erythrocyte Sedimentation Rate 21 mm/hr (0-20)
[2020-11-10 11:57] LABS: Vitamin D 25 Hydroxy 34.5 ng/mL
[2020-11-10 12:04] LABS: LDL Cholesterol Direct 42 mg/dL
[2020-11-10 12:06] LABS: Free T4 Free Thyroxine 1.07 ng/mL (0.78-2.19)
[2020-11-10 12:15] LABS: Alanine Aminotransferase 42 U/L (4-35); Albumin Level 4.3 g/dL (3.5-5.1); Alkaline Phosphatase 114 U/L (38-126); Anion Gap 4 mmol/L (8-16); Aspartate Amino Transferase 39 U/L (14-36); Bilirubin,Total 0.3 mg/dL (0.2-1.3); Blood Urea Nitrogen 13 mg/dL (7-17); Calcium 9.4 mg/dL (8.4-10.2); Carbon Dioxide 35 mmol/L (22-30); Chloride 106 mmol/L (98-107); Cholesterol 145 mg/dL (0-200); Creatine Kinase 106 U/L (30-135); Estimated Glomerular Filt Rate > 60; Glucose 98 mg/dL (65-110); HDL Direct 70 mg/dL; Potassium 3.5 mmol/L (3.4-5.0); Sodium 145 mmol/L (137-145); Triglycerides 116 mg/dL (<150)
[2020-11-10 12:18] LABS: Folic Acid 17.1 ng/mL (2.76->20)
[2020-11-10 14:07] LABS: Parathyroid Intact 125.5 pg/mL (7.5-53.5)
[2020-11-13 05:11] LABS: Lamotrigine Lamictal 5.4 mcg/mL (4.0-18.0)
[2020-11-15 09:25] LABS: Vitamin B1 81 nmol/L (8-30)
== END 2020-11-10 10:14 | disposition home or self-care (01) ==
LOC: ANHLAB 10:19
PROVIDERS: PCP Internal Medicine; Visit Provider Internal Medicine
DX: E11.9 Type 2 diabetes mellitus without complications (principal); G24.01 Drug induced subacute dyskinesia; G40.909 Epilepsy, unspecified, not intractable, without status epilepticus; R06.02 Shortness of breath; E55.9 Vitamin D deficiency, unspecified; E78.2 Mixed hyperlipidemia; R29.6 Repeated falls; Z79.899 Other long term (current) drug therapy; S22.070D Wedge compression fracture of T9-T10 vertebra, subsequent encounter for fracture with routine healing; X58.XXXD Exposure to other specified factors, subsequent encounter
CPT/HCPCS: 36415; 71046; 80053; 80061; 80175; 82306; 82550; 82607; 82746; 83036; 83970; 84252; 84425; 84439; 84443; 85025; 85652; 86140

== ENCOUNTER 2020-11-18 14:04 | Outpatient (CLI) | payer MEDICARE, SELFPAY ==
--- NOTE | ~2020-11-18 | CT_ITS ---
EXAMINATION: CT lumbar spine wo con DATE: 11/18/2020 15:08 INDICATION: Unspecified low back pain TECHNIQUE: Computed tomography (CT) of the lumbar spine was performed without intravenous contrast. A utomated exposure control and iterative reconstruction technique were employed. The dose-length produ ct was 1210.67 mGy-cm. COMPARISON: 09/22/2019 FINDINGS: 2 mm retrolisthesis L5 on S1. Acute to subacute appearing L5 compression fracture with 20% anterior v ertebral body height loss. Remaining vertebral body heights are normal. No other fractures identified . Severe disc height loss with vacuum phenomena at L5-S1. Mild disc height loss with mild degenerativ e endplate changes at L1-L2. Lucent T12 hemangioma with thickened internal trabecular pattern. Mild b ilateral sacral iliac osteoarthritis. The following disc levels are specifically discussed: T11-T12: Disc is minimally bulging. There is mild bilateral facet joint osteoarthritis. There is no n eural foraminal stenosis. There is no central canal stenosis. T12-L1: Disc is minimally bulging. There is mild right and minimal left facet joint osteoarthritis. T here is no neural foraminal stenosis. There is no central canal stenosis. L1-L2: Disc is bulging. There is mild bilateral facet joint osteoarthritis. There is no neural forami nal stenosis. There is mild central canal stenosis. L2-L3: Disc is bulging. There is mild right and minimal left facet joint osteoarthritis. There is no neural foraminal stenosis. There is mild bilateral central canal stenosis. L3-L4: Disc is bulging. There is mild bilateral facet joint osteoarthritis. There is no neural forami nal stenosis. There is mild central canal stenosis. L4-L5: Disc is bulging There is hypertrophy of the ligamentum flavum. There is moderate to severe jah ateral facet joint osteoarthritis. There is mild to moderate bilateral neural foraminal stenosis. The re is moderate to severe central canal stenosis. L5-S1: Disc is bulging. There is moderate bilateral facet joint osteoarthritis. There is moderate lef t and mild to moderate right neural foraminal stenosis. There is no central canal stenosis. IMPRESSION: 1. Acute to subacute L5 compression fracture with 20% anterior vertebral body height loss. 2. Moderate to severe lower lumbar spondylosis and mild spondylosis in the mid lumbar to lower thorac ic spine. Reviewed, dictated and finalized at location A. IMPRESSION: 1. Acute to subacute L5 compression fracture with 20% anterior vertebral body h eight loss. 2. Moderate to severe lower lumbar spondylosis and mild spondylosis in the mid lumbar to lower thoracic spine.
--- NOTE | ~2020-11-18 | CT_ITS ---
EXAMINATION: CT brain wo/w con EXAM DATE: 11/18/2020 15:06 INDICATION: R26.81 - Unsteadiness on feet. TECHNIQUE: Spiral CT of the head was performed without contrast. Axial, coronal and sagittal images were reviewed. Patient was then injected with 100 cc Omnipaque 350 intravenous contrast and reimaged. Postcontrast axial, coronal, sagittal reformatted images reviewed. The dose-length product (DLP) for this examination was 1210.67 mGy-cm. The exposure was tailored according to patient size, and i terative reconstruction (ASIR) was used as additional dose reduction technique. Comparison is made to prior examination from 05/12/2020. FINDINGS: There is no acute intraparenchymal hemorrhage. No evidence of intraparenchymal brain mass lesion. No evidence of acute infarction. Please note that initial head CT has limited sensitivity f or small or acute infarctions. There is mild periventricular and subcortical hypodensity, nonspecific but probably related to small vessel ischemic disease. There is mild to moderate prominence of the sulci and ventricles related to cerebral atrophy. There is intracranial carotid arteriosclerosis. There are no extra-axial collections. There is no mass effect or midline shift. Patient has had bi lateral ocular lens surgery. Soft tissue is unremarkable. The visualized sinuses and mastoid air ce lls are well aerated. Small incidental right frontal lobe developmental venous anomaly, a low flow lesion which is not clin ically significant. IMPRESSION: 1. Chronic age related findings. 2. Incidental DVA, not clinically significant finding. Reviewed, dictated and finalized at location A.
== END 2020-11-18 14:05 | disposition home or self-care (01) ==
LOC: ANHIMG 14:05
PROVIDERS: PCP Internal Medicine; Visit Provider Internal Medicine
DX: R26.81 Unsteadiness on feet (principal); R29.6 Repeated falls; M47.896 Other spondylosis, lumbar region
CPT/HCPCS: 70470; 72131; Q9967

== ENCOUNTER 2020-12-08 08:56 | Outpatient (CLI) | payer MEDICARE, SELFPAY ==
--- NOTE | ~2020-12-08 | US_ITS ---
EXAMINATION: US thyroid EXAM DATE: 12/08/2020 09:33 INDICATION: E34.9 - Endocrine disorder, unspecified , low calcium. TECHNIQUE: Multiple grayscale and Doppler images of the thyroid were obtained (by a technologist who performed the scan) and subsequently reviewed. Individual nodules and recommendations may be reporte d in accordance with TI-RADS system as designated by the 2017 ACR White Paper TI-RADS committee. [facility] elation is made to cervical CT 04/26/2020. FINDINGS: The right there are lobe measures 4.6 x 1.8 x 1.4 cm, is diffusely heterogeneous in echogenicity. The re is a cystic right thyroid lobe nodule measuring 1.5 x 0.3 x 4.7 cm, likely benign. Possible additi onal 9 mm TR 3 nodule versus heterogeneous region within the superficial aspect. The left thyroid lobe also diffusely heterogeneous measuring 4.3 x 1.8 x 1.8 cm. A focal hyperechoic 8 mm region was measured, possible TR 3 category lesion. Parathyroid nuclear medicine imaging appears to have been ordered but no images available for correla tion at this time. IMPRESSION: 1. Goiter, with possible subcentimeter nodules likely benign. Reviewed, dictated and finalized at location A.
--- NOTE | ~2020-12-08 | NM_ITS ---
EXAMINATION: NM parathyroid imaging w spect DATE: 12/08/2020 14:49 INDICATION: Unspecified endocrine disorder. Hypocalcemia. TECHNIQUE: 21 mCi Tc99m sestamibi (Cardiolite) was administered by intravenous route. Anterior images of the neck were obtained at 10 minutes and 4 hours. COMPARISON: None. FINDINGS: There is subtle focus of persistent activity in the area of the inferior right thyroid in the region of the where there is a 1.5 x 0.6 x 0.5 similar hypoechoic and hypervascular nodule on prior ultrasou nd. Similarly there is a subtle nodule at this location on an earlier CT of the neck dated 05/12/2020. Constellation of findings would be consistent with a parathyroid adenoma. IMPRESSION: 1: Subtle focus of persistent uptake on delayed images corresponding to a soft tissue density nodule along the inferior margin of the right thyroid suspicious for parathyroid adenoma. Reviewed, dictated and finalized at location A.
== END 2020-12-08 08:57 | disposition home or self-care (01) ==
LOC: ANHIMG 08:57
PROVIDERS: PCP Internal Medicine; Visit Provider Internal Medicine
DX: E04.1 Nontoxic single thyroid nodule (principal); E34.9 Endocrine disorder, unspecified
CPT/HCPCS: 76536; 78071; A9500

== ENCOUNTER 2021-01-13 01:06 | Day surgery (SDC) | payer MEDICARE, SELFPAY ==
[2021-01-05 14:00] VITALS: BMI 39.1
--- NOTE | 2021-01-05 14:08 | PC.NURSE ---
Report to the Outpatient Waiting Room, entrance under the green pavilion located off [facility], at time _0600 on date 01/13/21 . OR Time: __0900 . NUC.MED AT 0700 - You and your visitor will be asked a series of questions to screen for COVID 19 for your protection. - A mask is required within the hospital. - Only one visitor is allowed at this time. Patient visitors will be guided where to wait when not with patient. Preoperative COVID Testing Requirements: No COVID Test needed if: (proof is required; if not received patient will have Rapid Test prior to entry) - Patient has received COVID Vaccine at least 14 days prior to procedure date or - Patient has positive COVID test result within last 90 days of surgery date. COVID Test needed if above criteria is not met If not COVID vaccinated a COVID test must be conducted within 72 hours of surgery and patient is asked to isolate self from time of testing until procedure. You will go to the [facility] for your COVID testing. The [facility] site is located at the corner of [address] [facility]. You will only be called if COVID results are positive and your surgeon may reschedule your elective surgery date. Patients may have clear liquids (water, carbonated beverages, clear teas, apple juice) until 3 hours prior to surgery with a maximum of 20 ounces. - No food from midnight until time of surgery - Infants may have breast milk until 4 hours before surgery, infant formula 6 hours prior to surgery. - Children will be allowed to drink immediately following surgery. If applicable, please bring a bottle or sippy cup to assist with drinking. Juice, water, soda, and popsicles are readily available. For infants on formula, please bring formula the day of surgery. Pacifiers are allowed. Take the following medications with a SIP of water the morning of surgery: BUSPIRONE,CARVEDILOL,DULOXETINE,GABAPENTIN,LAMOTRIGINE,LUMATEPERONE,VALBENAZINE,AND INHALER IF NEEDED Medications to discontinue per physician ___ALL VITAMINS AND SUPPLEMENTS 3 DAYS PRE OP Date to take last dose___01/09/21 Please no make-up, nail malay, hairspray, perfume, deodorant, or body powder the day of surgery. No jewelry (including any body piercings) or valuables the day of surgery, leave them at home. Please take a shower or bath the night before, or the morning of, surgery with an antibacterial soap. Wear comfortable, loose fitting clothing. Children are encouraged to wear pajamas. - Jewelry must be removed prior to entering the operating room. Rings and piercings that are not removed may be cut off. - The hospital will not accept responsibility for valuables. - Please leave all valuables, including medications, at home the day of surgery. If you are going home after surgery, a licensed bus van driver must drive you home. - NO public transportation without another adult. - We recommend that an adult stay with you for 24 hours following discharge. - We also recommend that you do not drive, make important decision, drink alcoholic beverages, or take any drugs that were not prescribed by your health care provider for at least 24 hours after your discharge time. For Pediatric surgeries, we recommend two adults accompany the child home (only one inside the building at this time). Follow any additional instructions given to you from your surgeon. Telephone instructions given to _PATIENT and asked if any additional questions and then verbalized understanding. Patient advised to call surgeon office or pre surgery nurse liaison [phone] if any additional questions.
--- NOTE | 2021-01-10 06:49 | PM.HPGS ---
History of Present Illness History of Present Illness Consent: Risks, benefits, and alternatives have been discussed and questions answered. Patient agrees to proceed with procedure. Chief complaint: parathyroid adenoma Narrative: Ifeoma Tavares is a 65 year old female that has hypercalcemia and elevated parathormone level Review of Systems Review of Systems: All systems reviewed & are unremarkable except as noted in HPI and below PMFSH Past Medical History Medical History Abnormal finding of blood chemistry ANITA-inhibitor cough Ankle fracture Back pain Benign essential hypertension Bilateral carpal tunnel syndrome Bipolar affect, depressed Body mass index (BMI) 40.0-44.9, adult Bruit Chest pain Chronic constipation Chronic cough Compression fracture of L5 vertebra Compression fracture of T4 vertebra Depression Elevated parathyroid hormone Encounter for Medicare annual wellness exam Encounter for routine adult health examination without abnormal findings Encounter to establish care Fever Folliculitis Follow up Gait instability GERD (gastroesophageal reflux disease) Gout Hearing loss Hiatal hernia Hospital discharge follow-up Hyperlipidemia Hypocalcemia IBS (irritable bowel syndrome) Insomnia Low back pain Migraines Numbness and tingling of upper extremity Nummular eczema On [facility] drug therapy Orthostatic hypotension BREE on CPAP Peripheral edema Peripheral neuropathy Ptosis, right eyelid PTSD (post-traumatic stress disorder) Raynauds disease Seizure disorder Shoulder pain, right SOB (shortness of breath) Sore throat Stress Stress incontinence Tardive dyskinesia Transient global amnesia Type 2 diabetes mellitus without complications Urine incontinence Vitamin B1 deficiency Vitamin D deficiency Surgical History Surgical History History of bladder suspension procedure History of cholecystectomy 2019 History of colonoscopy with polypectomy Dr Gold Patricio 10/16/2016. History of partial hysterectomy S/P rotator cuff repair Family History Family History Mother AML (acute myeloblastic leukemia) Hypertension COPD (chronic obstructive pulmonary disease) Father Renal cell cancer Sibling Asthma Hypertension POTS (postural orthostatic tachycardia syndrome) Fibromyalgia Social History Social History Smoking status: Never smoker Alcohol intake: current Drinks per week: 1 Substance use: never Living arrangements: with family Gender identity (if verbalized by the patient): Female Spiritual care concerns: No Meds Home Medications and Allergies Home Medications Medication Instructions Recorded Confirmed Type duloxetine 60 mg capsule,delayed 120 mg PO DAILY cap 09/09/19 01/05/21 History release multivitamin 1 cap PO DAILY 09/09/19 01/05/21 History polyethylene glycol 3350 17 17 gm PO DAILY PRN 09/09/19 01/05/21 History gram/dose oral powder semaglutide 0.5 mg SUB-Q WEEKLY 90 Days #5.2 ml 11/26/19 01/05/21 Rx triamcinolone acetonide 1 applic TOPICAL BID PRN 12/12/19 01/05/21 History blood-glucose meter #1 each 12/25/19 11/29/20 Rx lamotrigine 200 mg PO DAILY 04/26/20 01/05/21 History meloxicam 15 mg PO DAILY 04/26/20 01/05/21 History lancets 30 gauge See Rx Instructions .ROUTE 04/30/20 01/05/21 Rx .COMPLEX #100 ea mirtazapine 30 mg tablet 10 mg PO QPM tablet 05/10/20 01/05/21 History allopurinol 100 mg tablet 200 mg PO DAILY #180 tablet 05/11/20 01/05/21 Rx pantoprazole 40 mg tablet,delayed 40 mg PO Q12H #180 tablet 05/20/20 01/05/21 Rx release metformin 500 mg tablet 500 mg PO BID #180 tablet 06/22/20 01/05/21 Rx potassium chloride 20 mEq 40 meq PO DAILY tablet 08/26/20 01/05/21 History tablet,extended release blood suga
--- NOTE | 2021-01-12 13:29 | WPDANESEPPF ---
Anes - Initial Pre Proc Eval Procedure: Operation Date: 01/13/21 08:00 Proposed Procedures p Parathyroid Exploration with Sestamibi Injection - Elan Root MD Date/Time: 01/12/21 13:29 Surgeon: Elan Root MD Pre Op Diagnosis: parathyroid adenoma Patient Data Age: 65 Gender: F Height: 1.7 m Weight: 113.4 kg Allergies Allergy/AdvReac Type Severity Reaction Status Date / Time olanzapine [From Zyprexa] Allergy Severe Other Verified 01/13/21 06:54 amitriptyline [From Elavil] Allergy Intermediate Other Verified 01/13/21 06:54 clindamycin Allergy Intermediate Hives Verified 01/13/21 06:54 lithium AdvReac Severe Hallucinati Verified 01/13/21 06:54 ng zolpidem AdvReac Severe Hallucinati Verified 01/13/21 06:54 ng erythromycin base AdvReac Intermediate Hives Verified 01/13/21 06:54 pregabalin [From Lyrica] AdvReac Mild HAIR LOSS Verified 01/13/21 06:54 topiramate [From Topamax] AdvReac Mild Hallucinati Verified 01/13/21 06:54 ng ziprasidone [From Geodon] AdvReac Mild Confusion Verified 01/13/21 06:54 ORAL STEROIDS AdvReac Depression Uncoded 01/13/21 06:54 Home Medications Medication Instructions Recorded Confirmed Type duloxetine 60 mg capsule,delayed 120 mg PO DAILY cap 09/09/19 01/11/21 History release multivitamin 1 cap PO DAILY 09/09/19 01/11/21 History semaglutide 0.5 mg SUB-Q WEEKLY 90 Days #5.2 ml 11/26/19 01/11/21 Rx triamcinolone acetonide 1 applic TOPICAL BID PRN 12/12/19 01/11/21 History blood-glucose meter #1 each 12/25/19 01/11/21 Rx lamotrigine 200 mg PO DAILY 04/26/20 01/11/21 History lancets 30 gauge See Rx Instructions .ROUTE 04/30/20 01/11/21 Rx .COMPLEX #100 ea mirtazapine 30 mg tablet 10 mg PO QPM tablet 05/10/20 01/11/21 History allopurinol 100 mg tablet 200 mg PO DAILY #180 tablet 05/11/20 01/11/21 Rx pantoprazole 40 mg tablet,delayed 40 mg PO Q12H #180 tablet 05/20/20 01/11/21 Rx release blood sugar diagnostic See Rx Instructions .ROUTE 09/03/20 01/11/21 Rx .COMPLEX #100 ea vitamin B complex-vitamin C-folic See Rx Instructions .ROUTE 09/28/20 01/11/21 Rx acid 0.8 mg tablet .COMPLEX #28 tablet atorvastatin 10 mg tablet 10 mg PO DAILY #90 tablet 09/30/20 01/11/21 Rx clobetasol 0.05 % topical cream 1 applic TOPICAL BID #45 g 10/26/20 01/11/21 Rx carvedilol 3.125 mg tablet See Rx Instructions .ROUTE 12/02/20 01/11/21 Rx .COMPLEX #56 tablet gabapentin 300 mg capsule See Rx Instructions .ROUTE 12/06/20 01/11/21 Rx .COMPLEX #56 capsule thiamine HCl (vitamin B1) 100 mg See Rx Instructions .ROUTE 12/28/20 01/11/21 Rx tablet .COMPLEX #28 tablet albuterol sulfate [ProAir HFA] 2 puff INHALATION Q4-6H PRN 01/05/21 01/11/21 History buspirone 15 mg tablet 15 mg PO BID tablet 01/11/21 01/11/21 History hydrochlorothiazide 12.5 mg tablet 12.5 mg PO DAILY #90 tablet 01/11/21 01/11/21 Rx losartan 25 mg tablet 25 mg PO DAILY #90 tablet 01/11/21 01/11/21 Rx lumateperone 42 mg capsule 42 mg PO DAILY 01/11/21 01/11/21 History metformin 500 mg tablet 500 mg PO BID #180 tablet 01/11/21 01/11/21 Rx potassium chloride 10 mEq 10 meq PO .qod #90 cap 01/11/21 01/11/21 Rx capsule,extended release prazosin 1 mg capsule 1 mg PO QHS 01/11/21 01/11/21 History Patient hx anesthesia problems: none Family hx anesthesia problems: none Results Review: All pre-operative results and documents have been reviewed as part of the pre-operative evaluation. [facility] Past Medical History Medical History (Updated 01/11/21 @ 11:42 by Sophie Strikcland, [facility]) Abnormal finding of blood chemistry ANITA-inhibitor cough Ankle fracture Back pain Benign essential hypertension Bilateral carpal tunnel syndrome Bipolar affect, depressed Body mass index (BMI) 40.0-44.9, adult Bruit Chest pain Chronic constipation Chronic cough Compression fracture of L5 vertebra Compression fracture of T4 vertebra Depression Elevated parathyroid hormone Encounter for Medicare annual wellness exam Encount
[2021-01-13] VITALS (10 sets, daily range): BP systolic 113–135; BP diastolic 56–72; PULSE 71–85; RESP 15–20; TEMP 36–36.1; O2SAT 92–100
--- NOTE | ~2021-01-13 | NM_ITS ---
EXAMINATION: NM parathyroid injection only DATE: 01/13/2021 13:06 INDICATION: Parathyroid adenoma TECHNIQUE: 4.9 mCi Tc99m sestamibi (Cardiolite) was administered by intravenous route to cyst with vega bsequent parathyroidectomy to be for performed by Dr. Root. No images were recorded. FINDINGS/IMPRESSION: Radiopharmaceutical injection without imaging to assist for planned parathyroidectomy. Reviewed, dictated and finalized at location B. [employer]
--- NOTE | 2021-01-13 06:20 | WPDHPUPDATE1 ---
History and Physical Update Update Date/Time: 01/13/21 06:20 History and Physical has been reviewed, including an updated exam of the patient. There are NO changes in the patient's condition. Risks, benefits, and alternatives have been discussed and questions answered. Patient agrees to proceed with procedure.
[2021-01-13] MEDS: ACETAMINOPHEN 500 MG TABLET 1000 MG PO (06:58)
[2021-01-13] MEDS: LACTATED RINGERS 1,000 ML 30 ML IV CONT ×2 (06:58→09:14)
[2021-01-13 07:01] LABS: Glucose Point of Care 87 mg/dl (65-105)
[2021-01-13] MEDS: ceFAZolin 2 GM/D5W 50 ML 2 GM/50 ML BAG IVPB (08:03)
[2021-01-13] MEDS: LIDO 1%/EPINEPHRINE 1:100,000 50 ML VIAL 10 ML INFILTRATE (08:12)
--- NOTE | 2021-01-13 09:03 | W.PM.PROC2 ---
Procedure Note - Detailed Date of Procedure 01/13/21 Pre-op Diagnosis parathyroid adenoma Post-op Diagnosis same Procedure Performed Neck exploration removal parathyroid adenoma Surgeon Elan Root MD Description of Procedure Testing patient was prepped and draped in fashion gentle anesthesia a low collar incision was made. Two small flaps elevated midline strap muscles were divided the right-sided thyroid was identified a parathyroid adenoma was identified in the right lower lobe this was removed sent for pathologic examination confirmed with a parathyroid adenoma hemostasis was obtained with bipolar cautery and closed in layers of chromic and subcuticular Monocryl and glue
[2021-01-13 09:22] LABS: Glucose Point of Care 104 mg/dl (65-105)
[2021-01-13] MEDS: oxyCODONE HCL (*CRX) 5 MG TAB IR PO (10:42)
== END 2021-01-13 11:49 | disposition home or self-care (01) ==
PROVIDERS: PCP Internal Medicine; Visit Provider Otolaryngology
PROC: (CPT 60500; principal; 2021-01-13 08:00)
DX: D35.1 Benign neoplasm of parathyroid gland (principal); E83.52 Hypercalcemia; I10 Essential (primary) hypertension; E11.42 Type 2 diabetes mellitus with diabetic polyneuropathy; F31.9 Bipolar disorder, unspecified; K21.9 Gastro-esophageal reflux disease without esophagitis; M10.9 Gout, unspecified; E78.5 Hyperlipidemia, unspecified; G47.33 Obstructive sleep apnea (adult) (pediatric); F43.10 Post-traumatic stress disorder, unspecified; G40.909 Epilepsy, unspecified, not intractable, without status epilepticus; K58.9 Irritable bowel syndrome, unspecified; E51.9 Thiamine deficiency, unspecified; Z79.899 Other long term (current) drug therapy; Z79.51 Long term (current) use of inhaled steroids; Z79.84 Long term (current) use of oral hypoglycemic drugs; E66.9 Obesity, unspecified; Z68.41 Body mass index [BMI] 40.0-44.9, adult
CPT/HCPCS: 60500; 78808; 82948; 88305; 88331; A9270; A9500; J0330; J0690; J1100; J2405; J2704; J3010; J7120

== ENCOUNTER 2021-05-24 12:13 | Outpatient (CLI) | payer MEDICARE, SELFPAY ==
--- NOTE | ~2021-05-24 | XR_ITS ---
EXAMINATION: XR chest 2V DATE: 05/24/2021 12:40 INDICATION: Chronic cough. TECHNIQUE: Frontal and lateral views of the chest were obtained. COMPARISON: Chest 2 views 11/10/2020 FINDINGS: There is mild atelectasis in left lower lung zone. No pleural effusion or pneumothorax. The heart size is normal. There is a chronic compression fracture in lower thoracic spine. IMPRESSION: 1. Mild atelectasis in left lower lung zone. Reviewed, dictated and finalized at location B.
[2021-05-24 12:30] LABS: Basophils Percent Auto 0.4 % (0.2-1.2); Eosinophils Absolute Auto 0.3 K/mm3 (0-0.3); Eosinophils Percent Auto 4.3 % (0-4.4); Hematocrit 40.5 % (37.0-47.0); Hemoglobin 12.5 g/dL (12.0-15.0); Immature Granulocyte Absolute 0.04 K/mm3 (0.00-0.031); Immature Granulocyte Percent A 0.6 % (0-0.5); Lymphocytes Absolute Auto 1.55 K/mm3 (0.9-3.2); Lymphocytes Percent Auto 22.3 % (18.3-44.2); Mean Corpuscular HGB Conc 30.9 g/dl (32-36); Mean Corpuscular Hemoglobin 26.8 pg (26-34); Mean Corpuscular Volume 86.9 fl (80-100); Mean Platelet Volume 9.9 fl (7.4-10.4); Monocytes Absolute Auto 0.3 K/mm3 (0.1-0.6); Monocytes Percent Auto 3.6 % (2.6-8.5); Neutrophils Absolute Auto 4.8 K/mm3 (1.3-6.7); Neutrophils Percent Auto 68.8 % (45.5-73.1); Platelet Count Result 344 k/mm3 (150-375); Red Blood Count 4.66 M/mm3 (4.2-5.4); Red Cell Distribution Width 16.8 % (11.5-14.5); White Blood Count 6.9 K/mm3 (4.5-10.0)
== END 2021-05-24 12:14 | disposition home or self-care (01) ==
LOC: ANHLAB 12:16
PROVIDERS: PCP Internal Medicine; Visit Provider Internal Medicine
DX: R05.9 Cough, unspecified (principal); R50.9 Fever, unspecified; J98.11 Atelectasis
CPT/HCPCS: 36415; 71046; 85025

== ENCOUNTER 2021-06-01 12:40 | Outpatient (CLI) | payer MEDICARE, SELFPAY ==
[2021-06-01 13:08] LABS: Basophils Absolute Auto 0.1 K/mm3 (0.0-0.1); Basophils Percent Auto 0.8 % (0.2-1.2); Eosinophils Absolute Auto 0.2 K/mm3 (0-0.3); Eosinophils Percent Auto 2.7 % (0-4.4); Hematocrit 39.4 % (37.0-47.0); Hemoglobin 12.4 g/dL (12.0-15.0); Immature Granulocyte Absolute 0.02 K/mm3 (0.00-0.031); Immature Granulocyte Percent A 0.3 % (0-0.5); Lymphocytes Absolute Auto 1.74 K/mm3 (0.9-3.2); Lymphocytes Percent Auto 27.7 % (18.3-44.2); Mean Corpuscular HGB Conc 31.5 g/dl (32-36); Mean Corpuscular Hemoglobin 26.5 pg (26-34); Mean Corpuscular Volume 84.2 fl (80-100); Mean Platelet Volume 9.9 fl (7.4-10.4); Monocytes Absolute Auto 0.3 K/mm3 (0.1-0.6); Monocytes Percent Auto 5.1 % (2.6-8.5); Neutrophils Percent Auto 63.4 % (45.5-73.1); Platelet Count Result 333 k/mm3 (150-375); Red Blood Count 4.68 M/mm3 (4.2-5.4); Red Cell Distribution Width 16.8 % (11.5-14.5); White Blood Count 6.3 K/mm3 (4.5-10.0)
[2021-06-01 13:24] LABS: Anion Gap 7 mmol/L (8-16); Blood Urea Nitrogen 12 mg/dL (7-17); CRP < 0.5 mg/dL (<1.0); Calcium 9.3 mg/dL (8.4-10.2); Carbon Dioxide 31 mmol/L (22-30); Chloride 101 mmol/L (98-107); Creatine Kinase 50 U/L (30-135); Estimated Glomerular Filt Rate > 60; Glucose 97 mg/dL (65-110); Lactate Dehydrogenase 565 U/L (313-618); Sodium 139 mmol/L (137-145); Uric Acid 4.2 mg/dL (2.5-7.5)
[2021-06-01 13:49] LABS: Erythrocyte Sedimentation Rate 24 mm/hr (0-20)
[2021-06-01 14:01] LABS: Add Urine Microscopic? YES; Appearance Urine Clear (Clear); Bilirubin Urine Negative (Negative); Blood Urine Negative (Negative); Color Urine Yellow (Yellow); Glucose Urine UA Negative (Negative); Ketones Urine Negative (Negative); Leukocyte Esterase Ur Trace LEU/UL (Negative); Mucus Urine Rare /lpf; Nitrate Urine Negative (Negative); Protein Urine Negative (Negative); RBC Urine 0-2 /hpf (0-2); Specific Grav Ur 1.011 (1.001-1.035); Squamous Epithelial Cell Urine Rare /hpf (Few); Urobilinogen Urine Negative mg/dL (<2.0); WBC Urine 0-3 /hpf
[2021-06-05 06:21] LABS: Aldolase 3.1 U/L (<=8.1)
== END 2021-06-01 12:41 | disposition home or self-care (01) ==
LOC: ANHLAB 12:42
PROVIDERS: PCP Internal Medicine; Visit Provider Internal Medicine
DX: M62.81 Muscle weakness (generalized) (principal); Z79.899 Other long term (current) drug therapy; I10 Essential (primary) hypertension
CPT/HCPCS: 36415; 80048; 81001; 82085; 82550; 83615; 84550; 85025; 85652; 86140

== ENCOUNTER 2021-06-09 13:30 | Outpatient (CLI) | payer MEDICARE, SELFPAY ==
--- NOTE | ~2021-06-09 | CT_ITS ---
EXAMINATION: CT cervical spine wo con DATE: 06/09/2021 13:54 INDICATION: Neck pain. TECHNIQUE: Computed tomography (CT) of the cervical spine was performed without intravenous contrast. Automated exposure control and iterative reconstruction technique were employed. The dose-length pro duct was 454.85 mGy-cm. COMPARISON: Cervical spine CT 04/26/2020 FINDINGS: There is kyphosis of cervical spine. There is 6 degrees dextrocurvature of cervicothoracic spine. Vertebral body heights are normal. There is 2 mm retrolisthesis of C6 on C7. There is mildly d ecreased disc height at C5-C6 and severely decreased disc height at C6-C7. The following disc levels are specifically discussed: C2-C3: There is no uncovertebral joint osteoarthritis. There is no facet joint osteoarthritis. There is mild right neural foraminal stenosis. There is no central canal stenosis. C3-C4: There is no uncovertebral joint osteoarthritis. There is mild left facet joint osteoarthritis. There is no neural foraminal stenosis. There is no central canal stenosis. C4-C5: There is mild left uncovertebral joint osteoarthritis. There is mild bilateral facet joint ost eoarthritis. There is no neural foraminal stenosis. There is no central canal stenosis. C5-C6: There is mild bilateral uncovertebral joint osteoarthritis. There is mild left facet joint ost eoarthritis. There is no neural foraminal stenosis. There is no central canal stenosis. C6-C7: There is mild right and severe left uncovertebral joint osteoarthritis. There is mild bilatera l facet joint osteoarthritis. There is mild left neural foraminal stenosis. There is mild central can al stenosis. C7-T1: There is no uncovertebral joint osteoarthritis. There is mild bilateral facet joint osteoarthr itis. There is no neural foraminal stenosis. There is no central canal stenosis. IMPRESSION: 1. Moderate cervical spondylosis, stable from 04/26/2020. Reviewed, dictated and finalized at location A.
== END 2021-06-09 13:31 | disposition home or self-care (01) ==
PROVIDERS: PCP Internal Medicine; Visit Provider Internal Medicine
DX: M47.892 Other spondylosis, cervical region (principal)
CPT/HCPCS: 72125

== ENCOUNTER 2021-06-23 10:33 | Outpatient (CLI) | payer MEDICARE, SELFPAY ==
[2021-06-23 11:18] LABS: CRP < 0.5 mg/dL (<1.0)
[2021-06-23 11:19] LABS: Erythrocyte Sedimentation Rate 14 mm/hr (0-20)
== END 2021-06-23 10:34 | disposition home or self-care (01) ==
LOC: ANHLAB 10:34
PROVIDERS: PCP Internal Medicine; Visit Provider Internal Medicine
DX: M62.81 Muscle weakness (generalized) (principal)
CPT/HCPCS: 36415; 85652; 86140

== ENCOUNTER 2021-07-11 10:54 | Outpatient (CLI) | payer MEDICARE, SELFPAY ==
[2021-07-11 11:24] LABS: Anion Gap 5 mmol/L (8-16); Blood Urea Nitrogen 11 mg/dL (7-17); Calcium 9.3 mg/dL (8.4-10.2); Carbon Dioxide 39 mmol/L (22-30); Chloride 96 mmol/L (98-107); Estimated Glomerular Filt Rate > 60; Glucose 123 mg/dL (65-110); Potassium 2.9 mmol/L (3.4-5.0); Sodium 140 mmol/L (137-145)
== END 2021-07-11 10:55 | disposition home or self-care (01) ==
PROVIDERS: PCP Internal Medicine; Visit Provider Internal Medicine
DX: R60.0 Localized edema (principal); I10 Essential (primary) hypertension; Z79.899 Other long term (current) drug therapy
CPT/HCPCS: 36415; 80048

== ENCOUNTER 2021-07-22 13:29 | Outpatient (CLI) | payer MEDICARE, SELFPAY ==
[2021-07-22 14:11] LABS: Basophils Percent Auto 0.7 % (0.2-1.2); Eosinophils Absolute Auto 0.2 K/mm3 (0-0.3); Eosinophils Percent Auto 2.8 % (0-4.4); Hematocrit 38.2 % (37.0-47.0); Hemoglobin 11.8 g/dL (12.0-15.0); Immature Granulocyte Absolute 0.03 K/mm3 (0.00-0.031); Immature Granulocyte Percent A 0.5 % (0-0.5); Lymphocytes Absolute Auto 1.84 K/mm3 (0.9-3.2); Lymphocytes Percent Auto 31.8 % (18.3-44.2); Mean Corpuscular HGB Conc 30.9 g/dl (32-36); Mean Corpuscular Hemoglobin 26.8 pg (26-34); Mean Corpuscular Volume 86.8 fl (80-100); Mean Platelet Volume 10.2 fl (7.4-10.4); Monocytes Absolute Auto 0.4 K/mm3 (0.1-0.6); Monocytes Percent Auto 7.4 % (2.6-8.5); Neutrophils Absolute Auto 3.3 K/mm3 (1.3-6.7); Neutrophils Percent Auto 56.8 % (45.5-73.1); Platelet Count Result 376 k/mm3 (150-375); Red Cell Distribution Width 17.4 % (11.5-14.5); White Blood Count 5.8 K/mm3 (4.5-10.0)
[2021-07-22 14:16] LABS: Add Urine Microscopic? NO; Appearance Urine Clear (Clear); Bilirubin Urine Negative (Negative); Blood Urine Negative (Negative); Color Urine Yellow (Yellow); Glucose Urine UA Negative (Negative); Ketones Urine Negative (Negative); Leukocyte Esterase Ur Negative LEU/UL (Negative); Nitrate Urine Negative (Negative); Protein Urine Negative (Negative); Specific Grav Ur 1.015 (1.001-1.035); Urobilinogen Urine 0.2 mg/dL (<2.0); pH Urine 7.5 (5.0-9.0)
[2021-07-22 14:21] LABS: Blood Urea Nitrogen 15 mg/dL (7-17); CRP 0.5 mg/dL (<1.0); Calcium 9.3 mg/dL (8.4-10.2); Carbon Dioxide > 40 mmol/L (22-30); Chloride 94 mmol/L (98-107); Creatine Kinase 61 U/L (30-135); Estimated Glomerular Filt Rate > 60; Glucose 88 mg/dL (65-110); Lactate Dehydrogenase 642 U/L (313-618); Potassium 3.3 mmol/L (3.4-5.0); Sodium 138 mmol/L (137-145); Uric Acid 5.8 mg/dL (2.5-7.5)
[2021-07-22 14:44] LABS: Erythrocyte Sedimentation Rate 18 mm/hr (0-20)
[2021-07-27 04:27] LABS: Aldolase 2.6 U/L (<=8.1)
== END 2021-07-22 13:30 | disposition home or self-care (01) ==
PROVIDERS: PCP Internal Medicine; Visit Provider Internal Medicine
DX: M62.81 Muscle weakness (generalized) (principal); Z79.899 Other long term (current) drug therapy; I10 Essential (primary) hypertension; R53.83 Other fatigue
CPT/HCPCS: 36415; 80048; 81003; 82085; 82550; 83615; 84550; 85025; 85652; 86140

== ENCOUNTER 2021-07-28 15:12 | Outpatient (CLI) | payer MEDICARE, SELFPAY ==
[2021-07-28 15:35] LABS: Basophils Absolute Auto 0.1 K/mm3 (0.0-0.1); Basophils Percent Auto 0.8 % (0.2-1.2); Eosinophils Absolute Auto 0.2 K/mm3 (0-0.3); Eosinophils Percent Auto 2.9 % (0-4.4); Hematocrit 37.9 % (37.0-47.0); Hemoglobin 12.1 g/dL (12.0-15.0); Immature Granulocyte Absolute 0.03 K/mm3 (0.00-0.031); Immature Granulocyte Percent A 0.5 % (0-0.5); Lymphocytes Absolute Auto 2.04 K/mm3 (0.9-3.2); Lymphocytes Percent Auto 31.3 % (18.3-44.2); Mean Corpuscular HGB Conc 31.9 g/dl (32-36); Mean Corpuscular Hemoglobin 26.8 pg (26-34); Monocytes Absolute Auto 0.4 K/mm3 (0.1-0.6); Monocytes Percent Auto 6.5 % (2.6-8.5); Neutrophils Absolute Auto 3.8 K/mm3 (1.3-6.7); Platelet Count Result 375 k/mm3 (150-375); Red Blood Count 4.51 M/mm3 (4.2-5.4); Red Cell Distribution Width 17.3 % (11.5-14.5); White Blood Count 6.5 K/mm3 (4.5-10.0)
[2021-07-28 15:48] LABS: Anion Gap 7 mmol/L (8-16); Blood Urea Nitrogen 11 mg/dL (7-17); Calcium 9.2 mg/dL (8.4-10.2); Carbon Dioxide 32 mmol/L (22-30); Chloride 101 mmol/L (98-107); Estimated Glomerular Filt Rate > 60; Glucose 81 mg/dL (65-110); Potassium 3.8 mmol/L (3.4-5.0); Sodium 140 mmol/L (137-145)
[2021-07-28 15:56] LABS: NT Pro B Type Natriuretic Pept 70 pg/mL (5-100)
== END 2021-07-28 15:13 | disposition home or self-care (01) ==
LOC: ANHLAB 15:19
PROVIDERS: PCP Internal Medicine; Visit Provider Internal Medicine
DX: R60.0 Localized edema (principal); Z79.899 Other long term (current) drug therapy; R06.02 Shortness of breath
CPT/HCPCS: 36415; 80048; 83880; 85025

== ENCOUNTER 2021-08-10 13:35 | Outpatient (CLI) | payer MEDICARE, SELFPAY ==
--- NOTE | ~2021-08-10 | XR_ITS ---
EXAMINATION: XR chest 2V 08/10/2021 14:14 INDICATION: Shortness of breath. History of asthma. PROCEDURE: 2 view chest COMPARISON: Comparison to multiple prior studies sequentially, with oldest reviewed study dated 04/26. FINDINGS: The lungs are clear. The cardiomediastinal silhouette is within normal limits. There are no pleural effusions. There is no pneumothorax suspected. IMPRESSION: 1: NO ACUTE CARDIOPULMONARY DISEASE. Reviewed, dictated and finalized at location A.
--- NOTE | ~2021-08-10 | US_ITS ---
EXAMINATION: US renal BI DATE: 08/10/2021 14:11 INDICATION: Acute kidney injury TECHNIQUE: Multiple grayscale and Doppler ultrasound images of the kidneys were obtained. COMPARISON: None. FINDINGS: The right kidney measures 11.0 x 6.5 x 7.2 cm. The left kidney measures 11.1 x 6.3 x 6.8 cm . The kidneys demonstrate normal parenchymal echogenicity. There is no hydronephrosis. The bladder is normal. IMPRESSION: 1. Normal kidneys without hydronephrosis. Reviewed, dictated and finalized at location B.
--- NOTE | ~2021-08-10 | US_ITS ---
EXAMINATION:US venous doppler LE BI INDICATION:Localized edema TECHNIQUE: Multiple grayscale, color flow and Doppler images of the right and left lower extremity de ep venous systems were obtained and reviewed. COMPARISON:09/22/2019 FINDINGS: The common femoral, superficial femoral and popliteal veins demonstrate normal respiratory variation, augmentation and compressibility. Color flow is also seen within the posterior tibial, pe roneal, greater saphenous and profunda veins. IMPRESSION: 1: No lower extremity deep venous thrombosis. Reviewed, dictated and finalized at location A.
== END 2021-08-10 13:36 | disposition home or self-care (01) ==
PROVIDERS: PCP Internal Medicine; Visit Provider Internal Medicine
DX: N17.9 Acute kidney failure, unspecified (principal); R06.02 Shortness of breath; R60.0 Localized edema; M79.606 Pain in leg, unspecified; M79.89 Other specified soft tissue disorders
CPT/HCPCS: 71046; 76775; 93970

== ENCOUNTER 2021-08-23 13:43 | Outpatient (CLI) | payer MEDICARE, SELFPAY ==
--- NOTE | 2021-08-23 13:51 | ECHO_ITS ---
Patient Info Name: Ifeoma Tavares Age: 65 years : 1955 Gender: Female Ht: 65 in Wt: 240 lbs BSA: 2.29 m2 HR: 85 bpm BP: 111 / 81 mmHg Heart Rhythm: Sinus Rhythm Technical Quality: Fair Exam Date: 08/23/2021 2:06 PM Exam Location: [facility] Patient Status: Outpatient Admit Date: 08/23/2021 Staff Ordering Physician: Van Dupree MD Production Solderer: Arlette Soni RDCS Attending Provider: Van Dupree MD Referring Physician: Joon SNOW; Exam Type: CA echo doppler color flow Study Info Indications - Shortness of breath Complete two-dimensional, color flow and Doppler transthoracic echocardiogram is performed. Summary 1. Complete two-dimensional, color flow and Doppler transthoracic echocardiogram is performed. 2. Left ventricular chamber dimension is normal. 3. Left ventricular systolic function is normal, estimated at 55-60%. 4. There is mildly increased left ventricular wall thickness. 5. The left ventricular diastolic function is grade I diastolic dysfunction. 6. E/e' 10 is mildly elevated. 7. No pulmonary hypertension, estimated pulmonary arterial systolic pressure is 31 mmHg. 8. There is trivial pericardial effusion. Left Ventricle E/e' 10 is mildly elevated. Left ventricular chamber dimension is normal. Left ventricular systolic function is normal, estimated at 55-60%. There is mildly increased left ventricular wall thickness. The left ventricular diastolic function is grade I diastolic dysfunction. Right Ventricle Right ventricular systolic function is normal and with normal TAPSE 2.1 cm. Right ventricular chamber dimension is normal. Left Atria Left atrial chamber dimension is normal. Right Atria Right atrial chamber dimension is normal. Aortic Valve The aortic valve is trileaflet. There is no aortic valve stenosis. There is no aortic valve regurgitation. Pulmonic Valve There is no pulmonic regurgitation. Mitral Valve There is no mitral valve stenosis. There is no mitral valve regurgitation. Tricuspid Valve There is no tricuspid valve regurgitation. No pulmonary hypertension, estimated pulmonary arterial systolic pressure is 31 mmHg. Pericardium/Pleural There is trivial pericardial effusion. Inferior Vena Cava Normal inferior vena cava with >50% collapse upon inspiration consistent with normal right atrial pressure, 5 mmHg. Aorta The aortic root size at the sinus of Valsalva is normal. Left Ventricular Outflow Tract Name Value Normal LVOT 2D LVOT Diameter 2.1 cm LVOT Doppler LVOT Peak Gradient 5 mmHg LVOT Mean Gradient 2 mmHg LVOT VTI 21 cm LVOT VTI/AV VTI Ratio 0.8 LVOT Stroke Volume 72 ml LVOT CO 5.3 l/min LVOT CI 2.3 l/min/m2 Pulmonic Valve Name Value Normal
== END 2021-08-23 13:44 | disposition home or self-care (01) ==
PROVIDERS: PCP Internal Medicine; Visit Provider Internal Medicine
DX: R06.02 Shortness of breath (principal)
CPT/HCPCS: 93306

== ENCOUNTER → 2021-09-28 12:45 | Outpatient (CLI) | payer MEDICARE, SELFPAY ==
--- NOTE | ~2021-09-28 | DEXA_ITS ---
Bone Density Report Name: JUANJOSE NEELY Age: 65 Sex: Female Ethnicity: White Date of : 1955 Indication: hyperparathyroidism; height loss; prior fracture; hysterectomy; postmenopausal Referring Provider: Allison Bolaños Study: Bone densitometry was performed. Exam Date: September 28, 2021 Accession number: [id number] Bone Density: Region BMD T-score Z-score Classification AP Spine (L1-L4) 0.869 -1.6 0.2 Osteopenia Femoral Neck (Right) 0.730 -1.1 0.5 Osteopenia Total Hip (Right) 0.889 -0.4 0.8 Normal World Health Organization criteria for BMD impression classify patients as: Normal (T-score at or above -1.0), Osteopenia (T-score between -1.0 and -2.5), or Osteoporosis (T-score at or below -2.5). 10-year Fracture Risk: FRAX not reported because: Prior hip or vertebral fracture Clinical Information Provided by Patient: Have had a previous hip or vertebral fracture Has had a low trauma fracture Has used the following medications: Vitamin D, MTV Has the following medical conditions: Hyperparathyroidism, Hysterectomy Patient maximum height was 67 Menopause Age: 30 No regular weight bearing exercise Does not regularly consume dairy products Drinks caffeinated beverages Onset of menses at age 9 Number of children 3 Impression: The patient has low bone mass, based on the Total Spine T-score. The patient has risk factors, including: previous fracture. Discussion: INCREASED RISK OF FRACTURE DUE TO HISTORY OF FRACTURE. The patient's previous fracture puts the patient at high risk of a future fracture. In untreated patients, the risk of osteoporotic fracture increases approximately two-fold for each 1.0 SD decrease in T-score. Low bone density is not the only risk factor for fracture; also consider factors such as patient's age, frailty or poor health, risk of falling, risk of injury, previous osteoporotic fracture, family history of osteoporosis, cigarette smoking, low body weight, etc. Not everyone with a low trauma fracture has osteoporosis; osteomalacia and other metabolic bone disorders should also be considered. Patients who have osteoporosis should be evaluated for specific diseases and conditions (secondary causes) that may cause or contribute to bone loss and fracture risk. National Osteoporosis Foundation (NOF) recommends pharmacologic intervention for patients with a prior hip or vertebral fracture regardless of BMD T-score. The patient should follow a healthful lifestyle (good nutrition with adequate calcium and vitamin D, and appropriate weight-bearing exercise). Follow-Up: Consider a repeat BMD and Vertebral Fracture Assessment (VFA) exam in 2 years or sooner if medically necessary, to reassess this patient's status. Reported by: EMMANUEL on 09/28/2021 1:40:00 PM. Reviewed, dictated and finalized at lo
== END ==
PROVIDERS: PCP Internal Medicine; Visit Provider Internal Medicine Endocrinology, Diabetes & Metabolism
DX: Z78.0 Asymptomatic menopausal state (principal); E21.3 Hyperparathyroidism, unspecified; M85.88 Other specified disorders of bone density and structure, other site; M85.851 Other specified disorders of bone density and structure, right thigh
CPT/HCPCS: 77080

== ENCOUNTER 2021-10-28 14:00 | Outpatient (CLI) | payer MEDICARE, SELFPAY ==
--- NOTE | ~2021-10-28 | XR_ITS ---
XR_[id number]_[id number] 10/28/2021 14:25 Indication: Foot pain for 4 weeks Procedure: 4 views left foot Comparison: No prior studies for comparison. Findings: There is a healed fifth metatarsal fracture with callus formation. Lisfranc joint intact. T here are small degenerative calcaneal enthesophytes. No acute fracture is identified. No foreign bodi es. Impression: 1: No acute abnormality of the left foot. 2: Healed fifth metatarsal fracture. Reviewed, dictated and finalized at location A. Impression: 1: No acute abnormality of the left foot. 2: Healed fifth metatarsal fracture.
--- NOTE | ~2021-10-28 | XR_ITS ---
XR_[id number]_CR 10/28/2021 14:25 Indication: Foot pain for 4 weeks Procedure: 4 views right foot Comparison: No prior studies for comparison. Findings: Moderate osteoarthritis of the first MTP joint. There are cystic changes in the base of the second proximal phalanx, likely degenerative. Lisfranc joint intact. There is mild polyarticular ost eoarthritis of the interphalangeal joints. No fracture or traumatic malalignment. No focal soft tissu e abnormality. No foreign bodies. Impression: 1: Mild-moderate polyarticular osteoarthritis. Reviewed, dictated and finalized at location A. Impression: 1: Mild-moderate polyarticular osteoarthritis.
== END 2021-10-28 14:01 | disposition home or self-care (01) ==
LOC: ANHIMG 14:04
PROVIDERS: PCP Internal Medicine; Visit Provider Internal Medicine
DX: S32.050A Wedge compression fracture of fifth lumbar vertebra, initial encounter for closed fracture (principal); X58.XXXA Exposure to other specified factors, initial encounter; M19.071 Primary osteoarthritis, right ankle and foot
CPT/HCPCS: 73630

== ENCOUNTER 2022-01-02 11:43 | Outpatient (CLI) | payer MEDICARE, SELFPAY ==
--- NOTE | ~2022-01-02 | CT_ITS ---
EXAMINATION: CT thoracic spine wo con DATE: 01/02/2022 12:13 INDICATION: Back pain after fall TECHNIQUE: Computed tomography (CT) of the gracilis 6 spine was performed without intravenous contras t. The dose-length product was 1410.56 mGy-cm. COMPARISON: Comparison to multiple prior studies sequentially, with oldest reviewed study dated 11/05. FINDINGS: There is a mild chronic superior endplate compression deformity of T4. There is a chronic w edge compression fracture of T9, unchanged allowing for differences of technique compared with prior chest x-ray dated 05/24/2021. There is an acute/subacute burst fracture of T12 with posterior displace ment of a fragment along the posterior inferior margin at the inferior endplate, into the canal. Ther e is a corticated ossific density along the inferior margin of the spinous process of T7 and T8, like ly related to remote trauma. There is left basilar atelectasis. Small left pleural effusion. IMPRESSION: 1. Acute/subacute burst fracture of T12 vertebra with posterior displacement of a fracture fragment a long the posterior inferior margin 2: Chronic fracture deformities of T4 and T9. Reviewed, dictated and finalized at location A. ADVICE IMPRESSION: 1. Acute/subacute burst fracture of T12 vertebra with posterior displacement of a fracture fragment along the posterior inferior margin 2: Chronic fracture deformities of T4 and T9.
== END 2022-01-02 11:44 | disposition home or self-care (01) ==
PROVIDERS: PCP Internal Medicine; Visit Provider Internal Medicine
DX: S22.081A Stable burst fracture of T11-T12 vertebra, initial encounter for closed fracture (principal); X58.XXXA Exposure to other specified factors, initial encounter
CPT/HCPCS: 72128

== ENCOUNTER 2022-02-17 07:56 | Outpatient (CLI) | payer MEDICARE, SELFPAY ==
--- NOTE | ~2022-02-17 | NM_ITS ---
EXAMINATION: NM bone scan whole body DATE: 02/17/2022 12:44 INDICATION: Age-related osteoporosis TECHNIQUE: 27.2 mCi Tc-99m HDP was administered intravenously. Delayed whole-body scintigrams were o btained. COMPARISON: CT of the thoracic spine dated 01/02/[address] dated 11/18/2020 FINDINGS: There is increased uptake extending across the T12 vertebral body corresponding to a recent burst fra cture which can be seen in the prior CT. There is significantly less intense uptake extending across additional chronic L5 burst fractures and be seen on earlier CT dated 11/18/2020. Likely degenerative joint centered uptake at the right first metatarsophalangeal joint, the medial compartment of the le ft knee and at the bilateral mid feet. No other suspicious foci of abnormal bone uptake to suggest ac fili osseous abnormality or metastatic disease. IMPRESSION: 1. Increased uptake associated with early chronic T12 burst fracture and chronic L5 burst fracture no norman on prior CT studies. No other lesions suspicious for acute fracture or metastatic disease. Reviewed, dictated and finalized at location A. BOAT IMPRESSION: 1. Increased uptake associated with early chronic T12 burst fracture and chroni c L5 burst fracture noted on prior CT studies. No other lesions suspicious for acute fracture or metastatic disease.
== END 2022-02-17 07:57 | disposition home or self-care (01) ==
PROVIDERS: PCP Internal Medicine; Visit Provider Pain Medicine Pain Medicine
DX: M80.08XA Age-related osteoporosis with current pathological fracture, vertebra(e), initial encounter for fracture (principal); S22.081D Stable burst fracture of T11-T12 vertebra, subsequent encounter for fracture with routine healing; S32.051D Stable burst fracture of fifth lumbar vertebra, subsequent encounter for fracture with routine healing; X58.XXXD Exposure to other specified factors, subsequent encounter
CPT/HCPCS: 78306; A9503

== ENCOUNTER 2022-06-05 15:40 | Outpatient (CLI) | payer MEDICARE, SELFPAY ==
[2022-06-05 16:10] LABS: Basophils Absolute Auto 0.1 K/mm3 (0.0-0.1); Basophils Percent Auto 0.8 % (0.2-1.2); Eosinophils Absolute Auto 0.3 K/mm3 (0-0.3); Eosinophils Percent Auto 4.7 % (0-4.4); Hematocrit 39.6 % (37.0-47.0); Hemoglobin 12.3 g/dL (12.0-15.0); Immature Granulocyte Absolute 0.01 K/mm3 (0.00-0.031); Immature Granulocyte Percent A 0.2 % (0-0.5); Lymphocytes Absolute Auto 1.88 K/mm3 (0.9-3.2); Lymphocytes Percent Auto 29.3 % (18.3-44.2); Mean Corpuscular HGB Conc 31.1 g/dl (32-36); Mean Corpuscular Hemoglobin 26.5 pg (26-34); Mean Corpuscular Volume 85.2 fl (80-100); Mean Platelet Volume 10.3 fl (7.4-10.4); Monocytes Absolute Auto 0.4 K/mm3 (0.1-0.6); Monocytes Percent Auto 5.5 % (2.6-8.5); Neutrophils Absolute Auto 3.8 K/mm3 (1.3-6.7); Neutrophils Percent Auto 59.5 % (45.5-73.1); Platelet Count Result 316 k/mm3 (150-375); Red Blood Count 4.65 M/mm3 (4.2-5.4); Red Cell Distribution Width 17.1 % (11.5-14.5); White Blood Count 6.4 K/mm3 (4.5-10.0)
[2022-06-05 16:22] LABS: Alanine Aminotransferase 30 U/L (6-35); Albumin Level 4.4 g/dL (3.5-5.1); Alkaline Phosphatase 111 U/L (38-126); Anion Gap 5 mmol/L (8-16); Aspartate Amino Transferase 30 U/L (14-36); Bilirubin,Total 0.7 mg/dL (0.2-1.3); Blood Urea Nitrogen 15 mg/dL (7-17); Calcium 8.7 mg/dL (8.4-10.2); Carbon Dioxide 33 mmol/L (22-30); Chloride 99 mmol/L (98-107); Cholesterol 174 mg/dL (0-200); Estimated Glomerular Filt Rate > 60; Glucose 78 mg/dL (65-110); HDL Direct 64 mg/dL; Potassium 3.8 mmol/L (3.4-5.0); Sodium 137 mmol/L (137-145); Triglycerides 132 mg/dL (<150)
[2022-06-05 16:32] LABS: LDL Cholesterol Direct 67 mg/dL
[2022-06-05 16:54] LABS: Hemoglobin A1C 5.3 % (<5.7)
[2022-06-05 18:18] LABS: Free T4 Free Thyroxine 1.15 ng/mL (0.78-2.19); Vitamin D 25 Hydroxy 29.2 ng/mL
== END 2022-06-05 15:41 | disposition home or self-care (01) ==
PROVIDERS: PCP Internal Medicine; Visit Provider Internal Medicine
DX: E11.9 Type 2 diabetes mellitus without complications (principal); I10 Essential (primary) hypertension; E55.9 Vitamin D deficiency, unspecified; E78.2 Mixed hyperlipidemia; Z13.29 Encounter for screening for other suspected endocrine disorder; Z79.899 Other long term (current) drug therapy
CPT/HCPCS: 36415; 80053; 80061; 82306; 83036; 84439; 84443; 85025

== ENCOUNTER 2022-10-05 13:26 | Outpatient (CLI) | payer MEDICARE, SELFPAY ==
--- NOTE | ~2022-10-05 | US_ITS ---
EXAMINATION: US thyroid DATE: 10/05/2022 14:39 INDICATION: Iron deficiency related diffuse endemic goiter. TECHNIQUE: Multiple ultrasound images of the thyroid were obtained. COMPARISON: None. FINDINGS: The right thyroid lobe measures 4.0 x 1.3 x 1.3 cm. The left thyroid lobe measures 4.0 x 1.2 x 1.5 c m. The thyroid demonstrates heterogeneous echogenicity and increased vascularity. No discrete nodule . IMPRESSION: 1. Heterogeneous, hypervascular thyroid, consistent with chronic lymphocytic (Bria) thyroiditis. Reviewed, dictated and finalized at location E. IMPRESSION: 1. Heterogeneous, hypervascular thyroid, consistent with chronic lymphocytic (H ashimoto) thyroiditis.
--- NOTE | ~2022-10-05 | XR_ITS ---
MODIFIED ESOPHAGRAM HISTORY: Dysphagia. TECHNIQUE: Modified barium esophagram was performed on 10/05/2022. I administered fluoroscopy and perf ormed the exam with speech pathologist. Patient was seated for lateral fluoroscopic imaging for lesly stion of thin liquids, pudding, solids and quantified amounts, followed by thin liquids in uncontroll ed amounts. This was recorded on tape. A single fluoroscopic spot image was also recorded. The DAP fo r this procedure was 2.32 Gycm2. The amount of fluoroscopy time used during this procedure was 2.5 mi nutes. FINDINGS: Oral stage: Adequate function. Pharyngeal stage: Adequate function. Cervical/esophageal stage: Adequate function. IMPRESSION: Patient tolerated regular consistency oral feedings in the upright position. Please jamee elate with speech pathologist findings and specific feeding recommendations. Reviewed, dictated and finalized at location A. IMPRESSION: Patient tolerated regular consistency oral feedings in the upright position. Please correlate with speech pathologist findings and specific feedi ng recommendations.
[2022-10-05 14:03] LABS: Appearance Urine Cloudy (Clear); Bacteria Urine 4+ /hpf; Bilirubin Urine Negative (Negative); Blood Urine Trace (Negative); Color Urine Yellow (Yellow); Glucose Urine UA 3+ mg/dL (Negative); Ketones Urine Negative (Negative); Leukocyte Esterase Ur 3+ LEU/UL (Negative); Nitrate Urine Positive (Negative); Non Pathogenic Casts 0-2; Protein Urine Negative (Negative); RBC Urine 0-2 /hpf (0-2); Squamous Epithelial Cell Urine None seen /hpf (Few); Urobilinogen Urine 0.2 mg/dL (<2.0); WBC Urine >100 /hpf; pH Urine 5.5 (5.0-9.0)
[2022-10-05 14:06] LABS: Add Urine Microscopic? YES
--- NOTE | 2022-10-05 16:11 | REHSTMBS ---
Assessment and note entered by Priscilla Nazario, IP ARCHITECT Modified Barium Swallow Evaluation Feeding Type Recommended Oral Food Consistency Regular, Level 7 Liquid Consistency Mildly Thick (2) Treatment Recommendations Bolus Control Exercise,Effortful Swallow,Laryngeal Elevation Exerc,Ron Maneuver,Supraglottic Swallow,Tongue Base Exercise,Vocal Fold Adduction Exer ST Clinical Summary MODIFIED BARIUM SWALLOW This Modified Barium Swallow study was administered to assess this patient's risk for aspiration. She reported that she has been coughing frequently while eating and drinking, that twice she felt she had to use the choking hand gesture in order to receive assistance while choking on solid foods, and that she feels she frequently chokes on her own saliva. She was unable to state why she felt this was occurring but reported that these symptoms have been occurring for several years. Patient was viewed in the lateral position to the level of C5/C6. Patient was presented with small amount of thin liquid contrast medium, and then uncontrolled thin liquid per cup and then per straw. On the larger amounts of thin liquid, per cup and per straw, she exhibited consistent penetration into the airway, occasionally reaching the level of the vocal folds and below. Each instance of penetration/aspiration caused coughing which cleared most of the penetrated/aspirated material but not all by time of completion of the test. Thicker material including pudding mixed with semi-solid contrast medium, and cracker coated with the semi-solid material caused no additional penetration however fruit cocktail with syrup, coated with the semi-solid mixture did contribute to additional penetration. Results indicate this patient may remain on a Regular Diet although she may prefer softer foods, cut-up foods, and meats that have been chopped into smaller pieces. She was instructed in the use of thickening agents such as Simply Thick or NutriThick to add to liquids to achieve a nectar consistency which was demonstrated to prevent penetration/aspiration by slowing down the liquid
== END 2022-10-05 13:27 | disposition home or self-care (01) ==
PROVIDERS: PCP Internal Medicine; Visit Provider Internal Medicine
DX: E01.0 Iodine-deficiency related diffuse (endemic) goiter (principal); N39.0 Urinary tract infection, site not specified; R13.10 Dysphagia, unspecified; T17.308A Unspecified foreign body in larynx causing other injury, initial encounter
CPT/HCPCS: 76536; 81001; 87077; 87086; 87186; 92611

== ENCOUNTER 2022-10-26 13:54 | Outpatient (RCR) | payer MEDICARE, SELFPAY ==
--- NOTE | 2022-10-26 15:22 | STOPEVDC ---
Assessment and note entered by Priscilla Nazario, NOODLE PRESS OPERATOR Thank you for referring Ifeoma Tavares to [facility] [place] An evaluation has been completed. No further treatment is needed. Evaluation Information Assessment Status Evaluation Diagnosis Dysphagia Onset 2021 Subjective Information The patient reports that she is choking when she swallows liquids, food, or saliva. She reports that this has been occurring for a year and a half but it's getting worse. She states that she has been told she is aspirating. See Summary. Reported Pain Level Pain Score 0: Self Report Assessment ST Clinical Summary BEDSIDE SWALLOW EVALUATION/INSTRUCTION HOME EXERCISE PROGRAM Patient was seen for a follow-up Bedside Swallow Evaluation following Modified Barium Swallow at this facility on 10/05/22. Results revealed that on larger amounts of thin liquid, per cup and per straw, patient exhibited consistent penetration into the airway, occasionally reaching the level of the vocal folds and below. Each instance of penetration/aspiration caused coughing which cleared most of the penetrated/aspirated material but not all by time of completion of the test. Thicker material including pudding mixed with semi -solid contrast medium, and cracker coated with the semi-solid material caused no additional penetration however fruit cocktail with syrup, coated with the semi-solid mixture did contribute to additional penetration. Results indicated impairments in the area of laryngeal elevation and base of tongue retraction resulting in reduced or inefficient epiglottal inversion for airway closure contributing to penetration/aspiration. Outpatient Speech Therapy was indicated at this time. Patient initially reported she would like to attend outpatient in [place] which is closer to home but today stated that she felt she would prefer to attend at the facility which completed the evaluation. Today the patient reports she was instructed in the use of head flexion at the time of the MBS however she has not been attempting to use it. 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
== END 2022-11-01 15:31 | disposition home or self-care (01) ==
LOC: ANHST 13:54
PROVIDERS: PCP Internal Medicine; Visit Provider Internal Medicine
DX: R05.9 Cough, unspecified (principal); T17.908A Unspecified foreign body in respiratory tract, part unspecified causing other injury, initial encounter
CPT/HCPCS: 92610

== ENCOUNTER 2022-11-10 08:36 | Outpatient (CLI) | payer MEDICARE, SELFPAY ==
--- NOTE | ~2022-11-10 | US_ITS ---
EXAMINATION: US venous doppler [facility] DATE: 11/10/2022 09:35 INDICATION: Left lower limb pain TECHNIQUE: Grayscale ultrasound images without and with compression and Doppler ultrasound images of the left lower extremity veins were obtained. COMPARISON: 08/10/2021 FINDINGS: The visualized portions of left common femoral vein, profunda (deep) femoral vein, femoral vein, popl iteal vein, peroneal veins, posterior tibial veins, gastrocnemius vein and greater saphenous vein out flow are patent. IMPRESSION: 1. No deep venous thrombosis in the left lower limb. Reviewed, dictated and finalized at location A.
[2022-11-10 09:33] LABS: INR 0.9; Prothrombin Time 12.3 Seconds (11.1-14.7)
[2022-11-10 09:34] LABS: Partial Thromboplastin Time 28.7 SECONDS (22.3-36.8)
[2022-11-10 09:35] LABS: Basophils Absolute Auto 0.1 K/mm3 (0.0-0.1); Basophils Percent Auto 1.5 % (0.2-1.2); Eosinophils Absolute Auto 0.4 K/mm3 (0-0.3); Eosinophils Percent Auto 6.9 % (0-4.4); Hematocrit 39.5 % (37.0-47.0); Hemoglobin 11.6 g/dL (12.0-15.0); Immature Granulocyte Absolute 0.01 K/mm3 (0.00-0.031); Immature Granulocyte Percent A 0.2 % (0-0.5); Lymphocytes Absolute Auto 1.71 K/mm3 (0.9-3.2); Lymphocytes Percent Auto 32.9 % (18.3-44.2); Mean Corpuscular HGB Conc 29.4 g/dl (32-36); Mean Corpuscular Hemoglobin 24.9 pg (26-34); Mean Corpuscular Volume 84.9 fl (80-100); Mean Platelet Volume 10.5 fl (7.4-10.4); Monocytes Absolute Auto 0.4 K/mm3 (0.1-0.6); Monocytes Percent Auto 7.3 % (2.6-8.5); Neutrophils Absolute Auto 2.7 K/mm3 (1.3-6.7); Neutrophils Percent Auto 51.2 % (45.5-73.1); Platelet Count Result 309 k/mm3 (150-375); Red Blood Count 4.65 M/mm3 (4.2-5.4); Red Cell Distribution Width 17.2 % (11.5-14.5); White Blood Count 5.2 K/mm3 (4.5-10.0)
[2022-11-10 09:43] LABS: NT Pro B Type Natriuretic Pept 99 pg/mL (19.9-100)
== END 2022-11-10 08:37 | disposition home or self-care (01) ==
LOC: ANHIMG 08:37
PROVIDERS: PCP Internal Medicine; Visit Provider Internal Medicine
DX: M79.605 Pain in left leg (principal); M79.89 Other specified soft tissue disorders; R60.9 Edema, unspecified; R06.02 Shortness of breath
CPT/HCPCS: 36415; 83880; 85025; 85380; 85610; 85730; 93971

== ENCOUNTER 2022-11-13 09:44 | Outpatient (CLI) | payer MEDICARE, SELFPAY | END 2022-11-13 09:45 | disposition home or self-care (01) | LOC: ANHAUDIO 09:45 | PROVIDERS: PCP Internal Medicine; Visit Provider Internal Medicine | DX: H93.19 Tinnitus, unspecified ear (principal); R42 Dizziness and giddiness; H90.3 Sensorineural hearing loss, bilateral | CPT/HCPCS: 92557; 92567 ==

== ENCOUNTER 2022-11-23 00:44 | Day surgery (SDC) | payer MEDICARE, SELFPAY ==
[2022-11-09 14:26] VITALS: BMI 38.7
[2022-11-23 11:27] VITALS: BP 147/81; PULSE 90; RESP 18; TEMP 36.6; O2SAT 100
[2022-11-23] MEDS: LACTATED RINGERS 1,000 ML 150 ML IV CONT (11:28)
--- NOTE | 2022-11-23 11:35 | PM.HPGS ---
History of Present Illness History of Present Illness Consent: Risks, benefits, and alternatives have been discussed and questions answered. Patient agrees to proceed with procedure. Chief complaint: hx colon polyps Narrative: Ifeoma Tavares is a 67 year old female Presents for screening colonoscopy. Patient reports that she had a colonoscopy 10 years ago performed elsewhere was told she had small polyps. Histology of these polyps are unknown. Patient reports her current weight appetite bowel movements are normal. She returns today for colonoscopy. She reports no bleeding no abdominal pain. Review of Systems Review of Systems: Review of systems noncontributory. [facility] Past Medical History Medical History (Updated 11/10/22 @ 08:13 by Sophie Strickland [facility]) Abnormal finding of blood chemistry ANITA-inhibitor cough Anesthesia of skin Ankle fracture Back pain Benign essential hypertension Bilateral carpal tunnel syndrome Bipolar affect, depressed BMI 39.0-39.9,adult Body mass index (BMI) 40.0-44.9, adult Breast cancer screening Bruit Cervical spine pain Chest pain Chronic constipation Chronic cough Colon cancer screening Compression fracture of L5 vertebra Compression fracture of T4 vertebra Cough Cystitis Depression Edema Elevated parathyroid hormone Encounter for Medicare annual wellness exam Encounter for routine adult health examination without abnormal findings Encounter to establish care Fever Folliculitis Follow up Gait instability GERD (gastroesophageal reflux disease) Goiter Gout Grade I diastolic dysfunction Hearing loss Hiatal hernia Hospital discharge follow-up Hx of colonic polyps Hyperlipidemia Hypocalcemia IBS (irritable bowel syndrome) Impaired functional mobility, balance, gait, and endurance Insomnia Low back pain Migraines Mild reactive airways disease Muscle ache Muscle weakness Numbness and tingling of upper extremity Nummular eczema On long-term drug therapy Orthostatic hypotension BREE on CPAP Paresthesia of skin Pedal edema Peripheral edema Peripheral neuropathy PMR (polymyalgia rheumatica) Ptosis, right eyelid PTSD (post-traumatic stress disorder) Rash Raynauds disease Seizure disorder Shoulder pain, right SOB (shortness of breath) Sore throat Statin intolerance Stress Stress incontinence Tardive dyskinesia Tinnitus Transient global amnesia Type 2 diabetes mellitus without complications Urine incontinence Vitamin B1 deficiency Vitamin D deficiency Surgical History Surgical History History of bladder suspension procedure History of cholecystectomy 2018 History of colonoscopy with polypectomy Dr Gold Patricio 10/16/2016. History of partial hysterectomy S/P rotator cuff repair Family History Family History Mother AML (acute myeloblastic leukemia) Hypertension COPD (chronic obstructive pulmonary disease) Father Renal cell cancer Sibling Asthma Hypertension POTS (postural orthostatic tachycardia syndrome) Fibromyalgia Social History Social History Smoking status: Never smoker Second hand tobacco smoke exposure: No Alcohol intake: current Drinks per week: 2 Substance use: never Substance use type: does not use Lack of Transportation: No Lack of Food: Never True Current Housing: I Have Housing Concerned About Future Housing: No Difficulty Paying Gas/Electric Bills: No Difficulty Paying for Meds: YES Currently Unemployed: No Education: Bachelor's Degree Difficulty w/ Childcare or Family Care: No Living arrangements: with family Gender identity (if verbalized by the patient): Female Spiritual care concerns: No Meds Home Medications and Allergies Home Medications Medication Instructions Recorded Confirmed Type duloxetine 60 mg caps
[2022-11-23 11:44] LABS: Glucose Point of Care 118 mg/dl (65-105)
--- NOTE | 2022-11-23 12:08 | WPDANESEPPF ---
Anes - Initial Pre Proc Eval Procedure: Operation Date: 11/23/22 12:30 Proposed Procedures p Colonoscopy - Lowell Cole MD Date/Time: 11/23/22 12:08 Surgeon: Lowell Cole MD Pre Op Diagnosis: hx colon polyps Patient Data Age: 67 Gender: F Height: 1.68 m Weight: 110 kg Last Vital Signs Temp 97.9 F 11/23/22 11:27 Pulse 90 11/23/22 11:27 Resp 18 11/23/22 11:27 BP 147/81 H 11/23/22 11:27 Pulse Ox 100 11/23/22 11:27 O2 Del Method Room Air 11/23/22 11:27 Allergies Allergy/AdvReac Type Severity Reaction Status Date / Time olanzapine [From Zyprexa] Allergy Severe Other Verified 11/23/22 11:21 amitriptyline [From Elavil] Allergy Intermediate Other Verified 11/23/22 11:21 clindamycin Allergy Intermediate Hives Verified 11/23/22 11:21 lithium AdvReac Severe Hallucinati Verified 11/23/22 11:21 ng valbenazine AdvReac Severe Other Verified 11/23/22 11:21 zolpidem AdvReac Severe Hallucinati Verified 11/23/22 11:21 ng erythromycin base AdvReac Intermediate Hives Verified 11/23/22 11:21 pregabalin [From Lyrica] AdvReac Mild HAIR LOSS Verified 11/23/22 11:21 topiramate [From Topamax] AdvReac Mild Hallucinati Verified 11/23/22 11:21 ng ziprasidone [From Geodon] AdvReac Mild Confusion Verified 11/23/22 11:21 ORAL STEROIDS AdvReac Depression Uncoded 11/14/22 11:38 Home Medications Medication Instructions Recorded Confirmed Type duloxetine 60 mg capsule,delayed 120 mg PO DAILY 09/09/19 11/14/22 History release (Cymbalta) multivitamin 1 cap PO DAILY 09/09/19 11/14/22 History triamcinolone acetonide 0.5 % 1 applic topical BID PRN Skin 12/12/19 11/14/22 History topical cream Irritation blood-glucose meter #1 ea 12/25/19 11/14/22 Rx lamotrigine 100 mg tablet 200 mg PO DAILY 04/26/20 11/14/22 History lancets 30 gauge (OneTouch Delica See Rx Instructions .Route 04/30/20 11/14/22 Rx Plus Lancet) .COMPLEX #100 ea blood sugar diagnostic (OneTouch See Rx Instructions .Route 09/03/20 11/14/22 Rx Verio test strips) .COMPLEX #100 ea albuterol sulfate 90 mcg/actuation 2 puff inhalation Q4-6H PRN 01/05/21 11/14/22 History aerosol inhaler (ProAir HFA) Shortness Of Breath mirtazapine 15 mg tablet 15 mg PO QHS 06/01/21 11/14/22 History deutetrabenazine 9 mg tablet 9 mg PO BID 09/13/21 11/14/22 History (Austedo) atorvastatin 10 mg tablet 10 mg PO QHS 09/19/21 11/14/22 History cephalexin 250 mg capsule 250 mg PO DAILY 06/05/22 11/14/22 History cyclobenzaprine 10 mg tablet See Rx Instructions .Route 06/05/22 11/14/22 Rx .COMPLEX PRN muscle spasm #30 tabs empagliflozin 12.5 mg-metformin ER 1 tablet PO DAILY #90 ea 06/05/22 11/14/22 Rx 1,000 mg tablet,extended rel 24 hr (Synjardy XR) gabapentin 400 mg capsule 400 mg PO TID 06/05/22 11/14/22 History losartan 50 mg tablet 50 mg PO DAILY #90 tabs 06/05/22 11/14/22 Rx thiamine HCl (vitamin B1) 100 mg See Rx Instructions .Route 09/04/22 11/14/22 Rx tablet .COMPLEX #28 tabs vitamin B complex-vitamin C-folic See Rx Instructions .Route 09/04/22 11/14/22 Rx acid 0.8 mg tablet (Kathy-Stacy) .COMPLEX #28 tabs cholecalciferol (vitamin D3) 50 50 mcg PO DAILY 10/11/22 11/14/22 History mcg (2,000 unit) capsule clonazepam 1 mg PO QHS 10/18/22 11/14/22 History gabapentin 300 mg capsule See Rx Instructions .Route 10/18/22 11/14/22 Rx .COMPLEX #30 caps polyethylene glycol 3350 17 17 g PO DAILY PRN Constipation 10/18/22 11/14/22 History gram/dose oral powder (Miralax) cholecalciferol (vitamin D3) 1,250 1,250 mcg PO DIRECTED #10 caps 10/24/22 11/14/22 Rx mcg (50,000 unit) capsule carvedilol 3.125 mg tablet See Rx Instructions .Route 10/30/22 11/14/22 Rx .COMPLEX #56 tabs pantoprazole 40 mg tablet,delayed See Rx Instructions .Route 10/30/22 11/14/22 Rx release .COMPLEX #56 tabs potassium chloride 20 mEq See Rx Instructions .Route 10/30/22 11/14/22 Rx tablet,extended release(part/cryst) .COMPLEX #56 tabs meloxicam 15 mg t
[2022-11-23 12:59] VITALS: BP 131/73; PULSE 95; RESP 27; O2SAT 100
[2022-11-23 13:09] VITALS: BP 116/62; PULSE 87; RESP 25; O2SAT 100
[2022-11-23 13:19] VITALS: BP 144/89; PULSE 75; RESP 24; O2SAT 99
== END 2022-11-23 13:31 | disposition home or self-care (01) ==
PROVIDERS: PCP Internal Medicine; Visit Provider Internal Medicine Gastroenterology
PROC: 0DJD8ZZ Inspection of Lower Intestinal Tract, Via Natural or Artificial Opening Endoscopic (ICD-10-PCS; CPT 45378; principal; 2022-11-23 12:30)
DX: Z12.11 Encounter for screening for malignant neoplasm of colon (principal); D17.5 Benign lipomatous neoplasm of intra-abdominal organs; K64.8 Other hemorrhoids; Z86.010 Personal history of colon polyps; I10 Essential (primary) hypertension; F31.9 Bipolar disorder, unspecified; K21.9 Gastro-esophageal reflux disease without esophagitis; M10.9 Gout, unspecified; E78.5 Hyperlipidemia, unspecified; G47.33 Obstructive sleep apnea (adult) (pediatric); G40.909 Epilepsy, unspecified, not intractable, without status epilepticus; E11.42 Type 2 diabetes mellitus with diabetic polyneuropathy; E55.9 Vitamin D deficiency, unspecified; F43.10 Post-traumatic stress disorder, unspecified; E53.8 Deficiency of other specified B group vitamins; Z79.51 Long term (current) use of inhaled steroids; Z79.84 Long term (current) use of oral hypoglycemic drugs; E66.01 Morbid (severe) obesity due to excess calories; Z68.39 Body mass index [BMI] 39.0-39.9, adult
CPT/HCPCS: G0105; 82948; J2704; J7120

== ENCOUNTER → 2023-01-25 14:10 | Outpatient (CLI) | payer MEDICARE, SELFPAY ==
--- NOTE | ~2023-01-25 | MM_ITS ---
EXAMINATION: MM screening coy BI w jey HISTORY: Screening mammogram TECHNIQUE: Craniocaudal and mediolateral oblique 3-D tomosynthesis images were obtained and synthetic 2-D images were generated. CAD analysis was submitted and interpreted. COMPARISON: No prior mammogram is available for comparison at this institution. BREAST PARENCHYMAL COMPOSITION: There are scattered areas of fibroglandular density. FINDINGS: There is no evidence of suspicious mass, calcification, or architectural distortion to sugg est malignancy in either breast.. IMPRESSION: 1. No mammographic evidence of malignancy. 2. Recommend routine screening mammography in one year. BI-RADS Category 1: Negative Reviewed, dictated and finalized at location A. ESTATE INTERN
== END ==
PROVIDERS: PCP Internal Medicine; Visit Provider Internal Medicine
DX: Z12.31 Encounter for screening mammogram for malignant neoplasm of breast (principal)
CPT/HCPCS: 77063; 77067

== ENCOUNTER 2023-03-01 14:04 | Outpatient (CLI) | payer MEDICARE, SELFPAY ==
[2023-03-01 14:22] LABS: Basophils Absolute Auto 0.1 K/mm3 (0.0-0.1); Basophils Percent Auto 0.8 % (0.2-1.2); Eosinophils Absolute Auto 0.3 K/mm3 (0-0.3); Eosinophils Percent Auto 4.8 % (0-4.4); Hematocrit 39.6 % (37.0-47.0); Hemoglobin 11.8 g/dL (12.0-15.0); Immature Granulocyte Absolute 0.02 K/mm3 (0.00-0.031); Immature Granulocyte Percent A 0.3 % (0-0.5); Lymphocytes Absolute Auto 1.78 K/mm3 (0.9-3.2); Lymphocytes Percent Auto 28.7 % (18.3-44.2); Mean Corpuscular HGB Conc 29.8 g/dl (32-36); Mean Corpuscular Hemoglobin 24.9 pg (26-34); Mean Corpuscular Volume 83.7 fl (80-100); Mean Platelet Volume 10.3 fl (7.4-10.4); Monocytes Absolute Auto 0.5 K/mm3 (0.1-0.6); Monocytes Percent Auto 7.6 % (2.6-8.5); Neutrophils Absolute Auto 3.6 K/mm3 (1.3-6.7); Neutrophils Percent Auto 57.8 % (45.5-73.1); Platelet Count Result 317 k/mm3 (150-375); Red Blood Count 4.73 M/mm3 (4.2-5.4); Red Cell Distribution Width 18.5 % (11.5-14.5); White Blood Count 6.2 K/mm3 (4.5-10.0)
[2023-03-01 14:29] LABS: Hypochromasia 1+ (NORMAL); Ovalocytes 1+ (NORMAL); Platelet Estimate Adequate (Adequate)
[2023-03-01 14:30] LABS: Schistocytes None Seen (NORMAL)
[2023-03-01 15:19] LABS: Alanine Aminotransferase 26 U/L (6-35); Albumin Level 4.2 g/dL (3.5-5.1); Alkaline Phosphatase 109 U/L (38-126); Anion Gap 6 mmol/L (8-16); Aspartate Amino Transferase 30 U/L (14-36); Bilirubin,Total 0.5 mg/dL (0.2-1.3); Blood Urea Nitrogen 15 mg/dL (7-17); Calcium 9.2 mg/dL (8.4-10.2); Carbon Dioxide 30 mmol/L (22-30); Chloride 105 mmol/L (98-107); Cholesterol 174 mg/dL (0-200); Estimated Glomerular Filt Rate > 60; Glucose 82 mg/dL (65-110); HDL Direct 82 mg/dL; Potassium 4.2 mmol/L (3.4-5.0); Sodium 141 mmol/L (137-145); Triglycerides 102 mg/dL (<150)
[2023-03-01 15:30] LABS: LDL Cholesterol Direct 65 mg/dL
[2023-03-01 17:57] LABS: Free T4 Free Thyroxine 0.94 ng/mL (0.78-2.19)
[2023-03-01 18:21] LABS: Vitamin D 25 Hydroxy 40.9 ng/mL
[2023-03-01 21:28] LABS: Hemoglobin A1C 5.8 % (<5.7)
== END 2023-03-01 14:05 | disposition home or self-care (01) ==
PROVIDERS: PCP Internal Medicine; Visit Provider Internal Medicine
DX: E55.9 Vitamin D deficiency, unspecified (principal); Z13.29 Encounter for screening for other suspected endocrine disorder; Z79.899 Other long term (current) drug therapy; I10 Essential (primary) hypertension; E78.5 Hyperlipidemia, unspecified; E11.9 Type 2 diabetes mellitus without complications
CPT/HCPCS: 36415; 80053; 80061; 82306; 83036; 84439; 84443; 85025

== ENCOUNTER 2023-08-06 14:43 | Outpatient (CLI) | payer MEDICARE, SELFPAY ==
--- NOTE | 2023-08-06 15:00 | ECHO_ITS ---
Patient Info Name: Ifeoma Tavares Age: 67 years : 1955 Gender: Female Ht: 66 in Wt: 250 lbs BSA: 2.35 m2 HR: 70 bpm BP: 111 / 79 mmHg Technical Quality: Fair Exam Date: 08/06/2023 3:15 PM Exam Location: Echo Lab Patient Status: Outpatient Admit Date: 08/06/2023 Staff Ordering Physician: Van Dupree MD Assistant Buyer: Ramesh Root RDCS Attending Provider: Van Dupree MD Referring Physician: Joon SNOW; Exam Type: CA echo dop color flow w con Study Info Indications I51.89 - Other ill-defined heart diseases R60.9 - Edema, unspecified Complete two-dimensional, color flow and Doppler transthoracic echocardiogram is performed with contrast to opacify the left ventricle and to improve the deliniation of the left ventricle endocardial borders. Contrast/Agitated Saline Contrast/Ag. Saline: Definity Amount: 2.00 ml IV Access Condition: patent with no signs of infiltration Summary 1. Definity contrast administered improved wall motion interpretation. 2. Left ventricular chamber dimension is normal. 3. Left ventricular systolic function is normal, estimated at 60-65%. 4. There is mild concentric increased left ventricular wall thickness. 5. The left ventricular diastolic function is grade I diastolic dysfunction. 6. E/e' 9 is minimally elevated. 7. Left atrial chamber dimension is mildly enlarged. 8. There is trace tricuspid valve regurgitation. 9. No pulmonary hypertension, estimated pulmonary arterial systolic pressure is 26 mmHg. 10. There is trivial pericardial effusion. Left Ventricle E/e' 9 is minimally elevated. Definity contrast administered improved wall motion interpretation. Left ventricular chamber dimension is normal. Left ventricular systolic function is normal, estimated at 60-65%. There is mild concentric increased left ventricular wall thickness. The left ventricular diastolic function is grade I diastolic dysfunction. Right Ventricle Right ventricular systolic function is normal and with normal TAPSE 2.2 cm. Right ventricular chamber dimension is normal. Left Atria Left atrial chamber dimension is mildly enlarged. Right Atria Right atrial chamber dimension is normal. Aortic Valve The aortic valve is trileaflet. There is no aortic valve stenosis. There is no aortic valve regurgitation. Pulmonic Valve There is no pulmonic regurgitation. Mitral Valve There is no mitral valve stenosis. There is no mitral valve regurgitation. Tricuspid Valve There is trace tricuspid valve regurgitation. No pulmonary hypertension, estimated pulmonary arterial systolic pressure is 26 mmHg. Pericardium/Pleural There is trivial pericardial effusion. Inferior Vena Cava Normal inferior vena cava with >50% collapse upon inspiration consistent with normal right atrial pressure, 5 mmHg. Aorta The aortic root size at the sinus of Valsalva is normal. Left Ventricular Outflow Tract Name Value Normal LVOT 2D LVOT Diameter 1.91 cm LVOT Doppler LVOT Peak Gradient 4 mmHg LVOT Mean Gradient 2 mmHg LVOT VTI 22.52 cm LVOT VTI/AV VTI Ratio
[2023-08-06] MEDS: PERFLUTREN LIPID MICROSPHERES 1.5 ML VIAL DILUTED TO 10 ML TOTAL VOLUME IV PUSH (15:42)
--- NOTE | 2023-08-06 16:09 | IVDEFINITY ---
Prior to administration of IV Definity the patient was educated on the risks and benefits of the imaging enhancing agent including potential adverse side effects. The patient verbalized understanding. Allergies were verified. No exclusion criteria were identified and at least one of the following inclusion criteria were met: 1) physician request, 2) patient technically difficult to image (per the [place] [employer]chocardi[employer] guidelines of two or more segments not discernable within the apical view), or 3) questionable left ventricular function. ?
== END 2023-08-06 14:44 | disposition home or self-care (01) ==
LOC: ANHCARD 14:45
PROVIDERS: PCP Internal Medicine; Visit Provider Internal Medicine
DX: I51.89 Other ill-defined heart diseases (principal); R60.9 Edema, unspecified; I31.39 Other pericardial effusion (noninflammatory); I51.7 Cardiomegaly
CPT/HCPCS: C8929; Q9957

== ENCOUNTER 2023-08-24 14:00 | Outpatient (CLI) | payer MEDICARE, SELFPAY ==
--- NOTE | ~2023-08-24 | US_ITS ---
US art doppler w press LE BI INDICATION: Renal syndrome without gangrene TECHNIQUE: Segmental pressures and plethysmographic and Doppler waveforms of the brachial and lower e xtremity arteries were obtained. COMPARISON: None. FINDINGS: Right and left brachial artery pressures of 122 mm Hg and 120 mm Hg, respectively, are concordant (no rmal difference <= 30 mmHg). There is biphasic and triphasic flow in the lower extremity arteries jah aterally. No significant pressure gradients are identified. The right ankle-brachial index (ALEX) is 1.28 (normal >= 0.9-1.0). The right great toe-brachial index (TBI) is 0.93 (normal >= 0.60). The left ALEX is 1.2. The left TBI is 0.87. IMPRESSION: 1. Unremarkable lower extremity arterial Doppler. Reviewed, dictated and finalized at location B.
== END 2023-08-24 14:01 | disposition home or self-care (01) ==
PROVIDERS: PCP Internal Medicine; Visit Provider Internal Medicine
DX: I73.00 Raynaud's syndrome without gangrene (principal); R68.89 Other general symptoms and signs
CPT/HCPCS: 93923

== ENCOUNTER 2023-12-26 12:02 | Outpatient (CLI) | payer MEDICARE, SELFPAY ==
--- NOTE | ~2023-12-26 | CT_ITS ---
CT brain wo/w con Ordering provider: Van Dupree MD History: 68 years Female with . R27.8 - Other lack of coordination . Comparison: None. Technique: CT of the head with and without contrast. Radiation Reduction technique utilized.The dose-length product was 1362.0 mGy-cm. 100 mL Omnipaque 350 was given IV. FINDINGS: BRAIN PARENCHYMA AND CSF SPACES: Mild leukoaraiosis and diffuse cortical atrophy. Mild atheromatous d isease. No midline shift, mass effect or hemorrhage. The brain parenchyma and CSF spaces are otherwi se normal. VISUALIZED PARANASAL SINUSES: Well aerated. MASTOIDS: Well aerated. BONES: The bones appear intact. SOFT TISSUES: Visualized nasopharynx is normal. Superficial soft tissues are normal. IMPRESSION: No acute intracranial findings. No enhancing lesions. Reviewed, dictated and finalized at location A. INOLOGY PROFESSOR
== END 2023-12-26 12:03 | disposition home or self-care (01) ==
PROVIDERS: PCP Internal Medicine; Visit Provider Internal Medicine
DX: R27.8 Other lack of coordination (principal)
CPT/HCPCS: 70470; Q9967

== ENCOUNTER 2024-02-25 11:27 | Outpatient (CLI) | payer MEDICARE, SELFPAY ==
--- NOTE | ~2024-02-25 | CT_ITS ---
EXAMINATION: CT thoracic lumbar wo con DATE: 02/25/2024 11:50 INDICATION: Back pain. TECHNIQUE: Computed tomography (CT) of the thoracic and lumbar spine was performed without intravenou s contrast. Automated exposure control and iterative reconstruction technique were employed. The dose -length product was 2014.52 mGy-cm. COMPARISON: Thoracic spine CT 01/02/2022, lumbar spine CT 11/18/2020 FINDINGS: CT THORACIC SPINE: There is 7 degrees dextrocurvature of thoracic spine. There is a chronic compressi on fracture of T9 with 2/5 loss of height. There is a chronic burst fracture of T12 with greater than 4/5 loss of height centrally and retropulsion of bone 4 mm into central spinal canal. There is mild chronic anterior wedging of T4 vertebral body. There is mildly decreased disc height at multiple leve ls. There is severely decreased disc height at T8-T9 and T9-T10. There is multilevel osep-hx-ntoaadai facet joint osteoarthritis. There is mild neural foraminal stenosis at a few levels on either side. There is mild central canal stenosis at T4-T5, T5-T6, T8-T9, and T9-T10. CT LUMBAR SPINE: There is 4 mm anterolisthesis of L4 on L5. There is a chronic compression fracture o f L5 with 1/5 loss of height and changes of vertebroplasty. There is 3 mm retrolisthesis of L5 on S1. There is mildly decreased disc height at L1-L2 and L4-L5 and severely decreased disc height at L5-S1 . There is an electrode in the right testis 4 neural foramen. The following disc levels are specifica lly discussed: L1-L2: The disc is bulging. There is mild bilateral facet joint osteoarthritis. There is no neural fo raminal stenosis. There is mild central canal stenosis. L2-L3: The disc is bulging. There is severe right and mild left facet joint osteoarthritis. There is mild bilateral neural foraminal stenosis. There is no central canal stenosis. L3-L4: The disc is bulging. There is moderate right and mild left facet joint osteoarthritis. There i s mild bilateral neural foraminal stenosis. There is mild central canal stenosis. L4-L5: The disc is bulging. There is severe bilateral facet joint osteoarthritis. There is mild bilat eral neural foraminal stenosis. There is moderate central canal stenosis. L5-S1: The disc is bulging. There is severe bilateral facet joint osteoarthritis. There is moderate b ilateral neural foraminal stenosis. There is mild central canal stenosis. IMPRESSION: 1. Stable severe thoracic and lumbar spondylosis. Reviewed, dictated and finalized at location B. [employer] C[employer]TING AND B[employer]ING
== END 2024-02-25 11:28 | disposition home or self-care (01) ==
PROVIDERS: PCP Internal Medicine; Visit Provider Internal Medicine
DX: M43.04 Spondylolysis, thoracic region (principal); M43.06 Spondylolysis, lumbar region
CPT/HCPCS: 72128; 72131

== ENCOUNTER 2024-04-30 12:03 | Outpatient (CLI) | payer MEDICARE, SELFPAY ==
--- NOTE | ~2024-04-30 | US_ITS ---
EXAMINATION:US venous doppler LE BI INDICATION:Leg pain TECHNIQUE: Multiple grayscale, color flow and Doppler images of the left lower extremity deep venous systems were obtained and reviewed. COMPARISON:No prior studies for comparison. FINDINGS: The common femoral, superficial femoral and popliteal veins demonstrate normal respiratory variation, augmentation and compressibility. Color flow is also seen within the posterior tibial, pe roneal, greater saphenous and profunda veins. IMPRESSION: 1: No lower extremity deep venous thrombosis. Reviewed, dictated and finalized at location A.
[2024-04-30 12:29] LABS: Basophils Absolute Auto 0.1 K/mm3 (0.0-0.1); Basophils Percent Auto 1.1 % (0.2-1.2); Eosinophils Absolute Auto 0.3 K/mm3 (0-0.3); Eosinophils Percent Auto 4.9 % (0-4.4); Hematocrit 37.7 % (37.0-47.0); Hemoglobin 11.4 g/dL (12.0-15.0); Immature Granulocyte Absolute 0.02 K/mm3 (0.00-0.031); Immature Granulocyte Percent A 0.4 % (0-0.5); Lymphocytes Absolute Auto 1.31 K/mm3 (0.9-3.2); Lymphocytes Percent Auto 24.9 % (18.3-44.2); Mean Corpuscular HGB Conc 30.2 g/dl (32-36); Mean Corpuscular Hemoglobin 25.8 pg (26-34); Mean Corpuscular Volume 85.3 fl (80-100); Mean Platelet Volume 9.9 fl (7.4-10.4); Monocytes Absolute Auto 0.4 K/mm3 (0.1-0.6); Monocytes Percent Auto 7.4 % (2.6-8.5); Neutrophils Absolute Auto 3.2 K/mm3 (1.3-6.7); Neutrophils Percent Auto 61.3 % (45.5-73.1); Platelet Count Result 332 k/mm3 (150-375); Red Blood Count 4.42 M/mm3 (4.2-5.4); Red Cell Distribution Width 17.2 % (11.5-14.5); White Blood Count 5.3 K/mm3 (4.5-10.0)
[2024-04-30 12:39] LABS: Hemoglobin A1C 5.4 % (<5.7)
[2024-04-30 12:41] LABS: Alanine Aminotransferase 30 U/L (6-35); Alkaline Phosphatase 130 U/L (38-126); Anion Gap 4 mmol/L (4-12); Aspartate Amino Transferase 26 U/L (14-36); Bilirubin,Total 0.5 mg/dL (0.2-1.3); Blood Urea Nitrogen 13 mg/dL (7-17); Calcium 8.8 mg/dL (8.4-10.2); Carbon Dioxide 32 mmol/L (22-30); Chloride 104 mmol/L (98-107); Estimated Glomerular Filt Rate 58; Glucose 102 mg/dL (65-110); Potassium 4.2 mmol/L (3.4-5.0); Sodium 140 mmol/L (137-145)
[2024-04-30 12:42] LABS: Cholesterol 152 mg/dL (0-200); HDL Direct 75 mg/dL; INR 0.9; Prothrombin Time 12.9 Seconds (11.1-14.7); Triglycerides 94 mg/dL (<150)
[2024-04-30 12:53] LABS: LDL Cholesterol Direct 47 mg/dL
--- OUTSIDE RECORDS SUMMARY | 2024-04-30 13:20 | XMS_ITS | Referral Summary ---
Author Organization [facility] Address [address] [place] [address] Care Team Providers Care Business Solutions Director Name Role Phone Van Dupree MD Primary Care Provider [phone] Allergies Active Allergy Reactions Criticality Noted Date Comments Zolpidem Hallucinations Medium 10/22/2020 Azithromycin Rash Medium 10/22/2020 Erythromycin Rash Medium 10/22/2020 [place] Hallucinations Medium 10/22/2020 Ziprasidone Hcl Other (See comments) Low Reaction: Other Medications duloxetine HCl (DULOXETINE ORAL) 120 mg daily Active pantoprazole DR (PROTONIX) 40 mg EC tablet Take 1 tablet (40 mg total) by mouth 2 (two) times a day 8 Active ARIPiprazole (ABILIFY) 5 mg tablet Take 1 tablet (5 mg total) by mouth daily 2 Active ALLOPURINOL ORAL 200 mg daily 2 Active clonazePAM (KlonoPIN) 0.5 mg tablet 1 tablet (0.5 mg total) daily as needed (anxiety) 2 Active lamoTRIgine (LaMICtal) 200 mg tablet Take 1 tablet (200 mg total) by mouth nightly Active deutetrabenazin e (Austedo) 9 mg tablet Take by mouth 2 (two) times a day Active potassium chloride ER (KLOR-CON) 10 mEq CR tablet Take 1 tablet/capsule (10 mEq total) by mouth 2 (two) times a day Active thiamine (VITAMIN B1) 100 mg tablet Take 1 tablet (100 mg total) by mouth daily Active mirabegron ER (MYRBETRIQ) 25 mg tablet extended release 24 hr Take 1 tablet (25 mg total) by mouth daily Active vitamin B complex-vitamin C-folic acid (Kathy-Stacy) 0.8 mg tabletIndicatio ns:Vitamin Deficiency Prevention Take 0.8 mg by mouth daily Active cholecalciferol (VITAMIN D-3) 50,000 unit capsule Take 1 capsule (50,000 Units total) by mouth once a week Wednesdays Active carvediloL (COREG) 3.125 mg tablet Take 1 tablet (3.125 mg total) by mouth 2 (two) times a day with meals 4 Active gabapentin (NEURONTIN) 400 mg capsule Take 1 capsule (400 mg total) by mouth 4 (four) times a day 1-1-2 4 Active mirtazapine (REMERON) 15 mg tablet Take 1 tablet (15 mg total) by mouth nightly 4 Active ezetimibe (ZETIA) 10 mg tablet Take 1 tablet (10 mg total) by mouth daily 4 Active empagliflozin-m etformin (Synjardy XR) 12.5-1,000 mg tablet, IR & ER, biphasic 24hr Take 1 tablet by mouth daily 4 Active Active Problems Problem Noted Date Diagnosed Date UTI (urinary tract infection) 08/03/2021 Orthopedic aftercare 06/19/2017 E coli bacteremia Traumatic rhabdomyolysis Hypokalemia Hyponatremia Acute renal failure superimp osed on stage 2 chronic kidney disease Essential (primary) hypertension Type 2 diabetes mellitus wit h diabetic neuropathy, without long-term current use of insulin Stage 2 chronic kidney disease Leukocytosis Bipolar affective disorder in remission Anxiety and depression Obstructive sleep apnea on CPAP Class 3 severe obesity due t o excess calories with serious comorbidity and body mass index (BMI) of 40.0 to 44.9 in adult Generalized weakness Overactive bladder Social History Tobacco Use Types Packs/Day Years Used Date Smoking Tobacco: Never Smokeless Tobacco: Never Tobacco Cessation:Counseling Given: Not Answered Alcohol Use Standard Drinks/Week Comments Yes 0 (1 standard drink = 0.6 oz pur e alcohol) occasional Personal Safety Answer Date Recorded Getting School Help Needed Not on file 02/22 Comments Unknown Sex and Gender Information Value Date Recorded Sex Assigned at Not on file Legal Sex Female 1:55 PM [employer] Gender Identity Not on file Sexual Orientation Not on file Last Filed Vital Signs Vital Sign Reading Time Taken Comments Blood Pressure 114/75 08/13/2023 10:59 AM CDT Pulse 78 08/13/2023 10:59 AM CDT Temperature 36.4 C (97.5 F) 10/31/2021 11:11 AM CDT Respiratory Rate 18 08/09/2021 7:30 AM CDT Oxygen Saturation 99% 10/31/2021 11:11 AM CDT Inhaled Oxygen Concentration - - Weight 121.6 kg (268 lb) 08/13/2023 10:59 AM CDT Height 167.6 cm (5' 6 ) 08/13/2023 10:59 AM CDT Body Mass Index 43.26 08/13/2023 10:59 AM CDT Plan of Treatment Not on file Procedures Procedure Name Priority Date/Time Associated Diagnosis Comments EGFR Routine 08/09/2021 5:24 AM CDT HEMOGLOBIN A1C Routine 08/03/2021 9:14 AM CDT from Last 3 Months or Most Recently Relevant to Health Maintenance Results * eGFR (08/09/2021 5:24 AM CDT) eGFR 82 mL/min/1. 73 m2 JAKE GUAN Comment: Interpretive Data Reference Interval Normal >/= 90 mL/min/1.73m2 Mildly decreased* 60 - 89 mL/min/1.73m2 Mildly to moderately decreased 45 - 59 mL/min/1.73m2 Moderately to severely decreased 30 - 44 mL/min/1.73m2 Severely decreased 15 - 29 mL/min/1.73m2 Kidney Failure < 15 mL/min/1.73m2 *Relative to young adult level Estimated glomerular filtration rate is determined by the 2020 CKD-EPI equation recommended by the National Kidney Foundation (A Unifying Approach to GFR Estimation: Recommendations of the NKF-ASK Task Force on Reassessing the Inclusion of Race in Diagnosing Kidney Disease, JASN 2020). The CKD-EPI equation should not be used for patients with unstable renal function and has not been validated in children and those over 70. Current interpretive data was last reviewed 2020. Blood 08/09/2021 5:24 AM CDT 08/09/2021 5:37 AM CDT Alonzo Vasques MD LAB BLOOD ORDERABLES Final Result Performing Organization Address [facility] de Phone Number JAKE [address] [place] [address] * Hemoglobin A1c (08/03/2021 9:14 AM CDT) Hgb A1C 5.5 4.0 - 5.6 % JAKE Estimated Average Glucose 111 mg/dL JAKE GUAN Comment: The ADA recommends reporting an estimated Average Glucose (eAG) with all Hemoglobin A1c results using the equation derived from a study of 507 normal and diabetic adults. Minority populations were underrepresented and children were not included. (Diabetes Care 31:6296-6238, 2008). The eAG is not equivalent to a fasting glucose. Blood 08/03/2021 9:14 AM CDT 08/03/2021 9:25 AM CDT Alonzo Vasques MD LAB BLOOD ORDERABLES Final Result Performing Organization Address [facility] de Phone Number JAKE [address] [place] [address] from Last 3 Months or Most Recently Relevant to Health Maintenance Insurance [facility] [employer] [facility] Address: [address] [address] [place] [address] [address] [id number] [facility] MED[employer] [employer] [facility] Address: [address] [address] [place] [address] [facility] Address: [address] [address] [place] [address] Advance Directives For more information, please contact: [phone] * Full Code (Latest Code Status on File) Date Activated Date Inactivated Comments 08/03/2021 7:40 AM 08/09/2021 6:31 PM Care Teams Business Solutions Director Relationship Specialty Start Date End Date Van Dupree MD PCP - General Internal Medicine 08/11/20
--- OUTSIDE RECORDS SUMMARY | 2024-04-30 13:20 | XMS_ITS | Clinical Summary ---
Author Organization [facility] Address [address] [place] [address] Care Team Providers Care Personnel Analyst Name Role Phone Unavailable Primary Care Provider Unavailabl e Source Comments [facility],non-owned Affiliates and Associated Physician Practices is amultiple site organization consisting of ambulatory clinics and hospital sitesin [place], [place], [place] and [place]. This disclosure is being madepursuant to the Care Everywhere program and may not contain all information available regarding this patient. Last updated 17.[facility] Allergies Active Allergy Reactions Criticality Noted Date Comments Clindamycin Rash Medium 09/20/2021 Erythromycin Rash Medium 09/20/2021 Gabapentin Dizziness 09/03/2017 Pt states cant hardly walk, makes me dizzy Ziprasidone Dizziness,Other High 03/13/2016 Could not walk or talk or see straight. [facility] High 07/15/2018 Pregabalin Other Low 02/09/2017 Hairloss Zolpidem Psychiatric High 07/15/2018 Medications * Be aware that medications may not be up to date on this document. Alwaysverify current medications with the patient. Medication Sig Dispensed Refills Start Date End Date Status furosemide (LASIX) 40 MG tablet Take 20 mg by mouth once daily 20mg Active spironolactone (ALDACTONE) 50 MG tablet Take 100 mg by mouth once daily Active lamoTRIgine (LAMICTAL) 100 MG tabletIndications :Depression,Neuro genic Pain (Inactive) Take 100 mg by mouth once daily Reasons: Depression, Neurogenic Pain Active atorvastatin (LIPITOR) 10 MG tablet Take 5 mg by mouth at bedtime Active allopurinol (ZYLOPRIM) 100 MG tablet Take 100 mg by mouth once daily Active pantoprazole EC (PROTONIX) 40 MG tablet Take 80 mg by mouth once daily 04/07/2019 Active famotidine (PEPCID) 20 MG tablet 02/21/2019 Active senna-docusate (SENOKOT-S) 8.6-50 MG tablet Take one tablet in the morning and 2 tablets in the evening. 04/07/2019 Active benzonatate (TESSALON) 200 MG capsule 12/13/2018 Active albuterol HFA (Proventil; Ventolin; Proair) 108 (90 Base) MCG/ACT inhaler USE 2 PUFFS BY MOUTH EVERY 6 HOURS NEEDED FOR SHORTNESS OF BREATH 09/17/2017 Active Polyethylene Glycol 3350 (MIRALAX PO) Take by mouth as needed Active clonazePAM 2 MG 1 mg AM and 2 mg PM Active carvedilol (COREG) 6.25 MG tablet Take 1 tablet by mouth 2 times daily with morning and evening meal 180 tablet 4 09/17/2019 Active ARIPiprazole (Abilify) 10 MG tablet Take 1 tablet by mouth once daily 04/06/2021 Active B Hziknwj-O-Ofbbx Acid (Kathy-Stacy) Take 0.8 mg by mouth once daily Active Nexlizet 180-10 MG TABS 09/06/2021 Active buPROPion XL 24hr (Wellbutrin-XL) 150 MG tablet 09/06/2021 Active busPIRone (Buspar) 15 MG tablet 09/06/2021 Active Austedo 6 MG tablet 09/07/2021 Active DULoxetine (Cymbalta) 60 MG capsule 09/06/2021 Active Breo Ellipta 100-25 MCG/INH inhaler 09/16/2019 Active gabapentin (Neurontin) 300 MG capsule 09/06/2021 Active OneTouch Verio test strip 02/22/2021 Active lamoTRIgine (LaMICtal) 200 MG tablet 09/06/2021 Active Lancets (ONETOUCH DELICA PLUS 33G EXTRA FINE LANCET) 06/09/2020 Active losartan (Cozaar) 25 MG tablet 09/06/2021 Active Myrbetriq 25 MG tablet 09/06/2021 Active mirtazapine (Remeron) 30 MG tablet 09/06/2021 Active potassium chloride ER (Micro-K) 10 MEQ capsule 09/06/2021 Active SUMAtriptan (Imitrex) 100 MG tablet Take 100 mg by mouth 06/09/2020 Acti ve Semaglutide (OZEMPIC, 0.25 OR 0.5 MG/DOSE, SC) Inject subcutaneously every 7 days Active metFORMIN (Glucophage) 500 MG tablet Take 500 mg by mouth 2 times daily with morning and evening meal Active nitrofurantoin monohyd macro crystals (Macrobid) 100 MG capsuleIndication s:Urinary tract infection without hematuria, site unspecified Take 1 (one) capsule by mouth 2 times daily with morning and evening meal 10 capsule 09/20/2021 Active HYDROcodone-aceta minophen (Starbuck) 5-325 MG tablet Take 1 (one) tablet by mouth every 6 hours as needed for Pain 12 tablet 09/21/2021 Active Active Problems Problem Noted Date Diagnosed Date Status post placement of VNS (vagus nerve stimulation) device 10/06/2021 Depression 09/15/2021 Bipolar affective disorder in remission 09/16/19 22 Stage 2 chronic kidney disease 09/15/2021 Type 2 diabetes mellitus 09/17/2019 Overview (09/17/2019): 08/24 A1c 6.8 History of pssible TIA (transient ischemic attac k) 08/06/2019 Overview (09/08/2019): 12/24 possbile TIA 12/24 MRA head: No hemodynamically significant stenosis 07/25 possible TIA 08/24 Echo: bubble negative... 08/24 Event recorder 24 days: SR at 89, range 50-120, 1% PACs, 1% PVCs, symptoms 10x correlated SR at 65-110, with 1 PVC Abnormal EKG 08/05/2019 Overview (09/17/2019): 08/22 EKG: SR at 62, PRWP, LVH voltage, T-wave abnormality V1-V4 08/22 Lexiscan nuclear: No ischemia, EF 67% 08/24 EKG: SR at 89, PRWP, LVH voltage, nonspecific ST/TW abnormality, leftward axis, mildly prolonged QT, intervals [phone] (on amitriptyline) 08/24 Lexiscan nuclear: No ischemia, apical lateral inconsistent attenuation artifact, EF 64% 09/24 EKG: SR at 75, PRWP, LVH voltage, leftward axis, intervals [phone] (off amitriptyline) HTN (hypertension), benign 08/05/2019 Overview (08/18/2019): 12/22 Echo: Normal LVEF, mild LAE, mild MR/TR, PASP 36 01/23 Echo: EF 59%, mild LVH, normal diastolic function, mild MR/TR, RVSP 22 08/24 Echo (TDS - Definity), EF 55-60%, normal chamber size, mild MR/TR, RVSP 33, bubble negative Pure hypercholesterolemia 08/05/2019 Overview (09/17/2019): 09/24 Cholesterol 179 HDL 66 LDL 84 triglyceride 143, CMP normal except glucose 119 and ALT 39 02/24 Cholesterol 172 HDL 71 LDL 64 triglyceride 187, CMP virtually normal except glucose 114, on atorvastatin 5 mg daily 10/24 cholesterol 206 HDL 71 LDL 108 triglyceride 137 07/24 cholesterol 186 HDL 63 LDL 101 triglyceride 111 11/22 cholesterol 193 HDL 59 LDL 98 triglyceride 178 03/23 cholesterol 177 HDL 67 LDL 72 triglyceride 190 PTSD (post-traumatic stress disorder) 03/25/2018 Precordial pain 09/03/2017 Overview (08/05/2019): 08/22 chest CTA: No PE Chronic diastolic congestive heart failure 08/15 Resolved Problems Problem Noted Date Diagnosed Date Resolved Date Chronic cholecystitis 09/06/20172019 Family History Medical History Relation Name Comments Hypertension Brother CAD (Coronary Artery Disease) Mother Hypertension Mother CAD (Coronary Artery Disease) Sister Hypertension Sister Relation Name Status Comments Brother Mother Sister Social History Tobacco Use Types Packs/Day Years Used Date Smoking Tobacco: Never Smokeless Tobacco: Never Alcohol Use Standard Drinks/Week Comments Yes 0 (1 standard drink = 0.6 oz pur e alcohol) 2 drinks/week Sex and Gender Information Value Date Recorded Sex Assigned at Not on file Gender Identity Not on file Sexual Orientation Not on file Last Filed Vital Signs Vital Sign Reading Time Taken Comments Blood Pressure 119/85 10/06/2021 9:00 AM CDT Pulse 94 10/06/2021 9:00 AM CDT Temperature 36.8 C (98.2 F) 10/06/2021 9:00 AM CDT Respiratory Rate 18 10/06/2021 9:00 AM CDT Oxygen Saturation 96% 10/06/2021 9:00 AM CDT Inhaled Oxygen Concentration - - Weight 113.4 kg (250 lb) 10/06/2021 9:00 AM CDT Height 167.6 cm (5' 6 ) 10/06/2021 9:00 AM CDT Body Mass Index 40.35 10/06/2021 9:00 AM CDT Plan of Treatment Health Maintenance Due Date Last Done Comments BONE DENSITY TESTING 1955 COLOGUARD (AGES 45-75) - COLON CA SCREENING 1955 COLON MONITORING 1955 COLONOSCOPY - COLON CA SCREENING 1955 CT COLONOGRAPHY - COLON CA SCREENING 1955 Colorectal Cancer Screening 1955 FIT - COLON CA SCREENING 1955 FLEX SIG - COLON CA SCREENING 1955 MAMMOGRAM 1955 HEPATITIS C SCREENING 10/29/1973 DTAP/TDAP/TD VACCINES (1 - Tdap) 11/02/1974 PNEUMOCOCCAL VACCINE 50+ (1 of 2 - PCV) 11/02/1974 ZOSTER VACCINE (1 of 2) 11/02/2005 Respiratory Syncytial Virus (RSV) Vaccine Pt: or over 60 yrs (1 - Risk 60-74 years 1-dose series) 2015 DIABETES RETINOPATHY SCREENING 09/17/2019 DIABETES-FOOT EXAM WITH MONOFILAMENT 09/17/2019 DIABETES-HGB A1C 02/02/2022 08/03/2021, 06/2019, 06/07/2017 DIABETES-SERUM CREATININE 09/20/20222021, 08/09/2021, 08/09/2021, Additional history exists COVID-19 VACCINE ( season) 2023 05/16/2020 INFLUENZA VACCINE (#1) 2023 9, 10/31/2017, 11/14/2016, Additional history exists DIABETES - URINE PROTEIN SCREENING 02/06/2024 MEDICARE AWV CALENDAR YEAR 2024 HEPATITIS B VACCINE Aged Out No longe r eligible based on patient's age to complete this topic HIB VACCINE Aged Out No longer eligi ble based on patient's age to complete this topic HPV VACCINE Aged Out No longer eligi ble based on patient's age to complete this topic MENINGOCOCCAL (Group B) VACCINE SHARED DECISION-MAKING Aged Out No longer eligible based on patient's age to complete this topic MENINGOCOCCAL GROUPS A/C/Y/W VACCINE Aged Out No longer eligible based on patient's age to complete this topic Medical Devices Implanted Type Area Mattress And Foundation Sewer Device Identifier Shelf Expiration Date Model / Serial / Lot Vns Therapy Symmetry Implanted:Qty: 1 on 09/21/2021 by Cherry Louis MD at [facility] Left: Chest LivaNova 05/23/2023 [id number] / Vns Therapy Perenniaflex Implanted:Qty: 1 on 09/21/2021 by Cherry Louis MD at [facility] Left: Neck LivaNova 05/24/2023 [id number] / [id number] / Procedures Procedure Name Priority Date/Time Associated Diagnosis Comments BASIC METABOLIC PANEL (CALCIUM TOTAL) Routine 09/20/2021 10:36 AM CDT Pre-op testing from Last 3 Months or Most Recently Relevant to Health Maintenance Results * (ABNORMAL) BASIC METABOLIC PANEL (CALCIUM TOTAL) (09/20/2021 10:36 AM CDT) BUN 16 7 - 26 mg/dL 09/20/2021 11:23 AM CDT [facility] Creatinine 0.90 0.56 - 0.96 mg/dL 09/20/2021 11:23 AM CDT [facility] Sodium 143 136 - 145 mmol/L 09/20/2021 11:23 AM [facility] Potassium 4.0 3.5 - 4.5 mmol/L 09/20/2021 11:23 AM [facility] Chloride 102 98 - 107 mmol/L 09/20/2021 11:23 AM [facility] CO2 34(H) 22 - 29 mmol/L 09/20/2021 11:23 AM [facility] Glucose 94 70 - 115 mg/dL 09/20/2021 11:23 AM [facility] Calcium 9.9 8.4 - 10.2 mg/dL 09/20/2021 11:23 AM [facility] Anion Gap 11 8 - 18 09/20/2021 11:23 AM [facility] BUN/Creatinine Ratio 18 7 - 23 09/20/2021 11:23 AM [facility] Osmolality Calculated 297 270 - 300 mOsm/kg 09/20/2021 11:23 AM [facility] eGFR by CKD-EPI 71(L) >=90 mL/min/1.7 3 m2 09/20/2021 11:23 AM [facility] Blood BLOOD SPECIMEN / Unknown Lab Venipuncture / Unknown 09/20/2021 10:36 AM CDT 09/20/2021 10:49 AM [facility] Dale Rudolph MD LAB - CHEMISTRY ORD ERABLES [facility] [address] [place] [address], [facility] [phone] from Last 3 Months or Most Recently Relevant to Health Maintenance Advance Directives Documents on File Type Date Recorded 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
--- OUTSIDE RECORDS SUMMARY | 2024-04-30 13:20 | XMS_ITS | Clinical Summary ---
Author Organization [facility] Address [address] [place] [address] Care Team Providers Care Talent Agent Name Role Phone Unavailable Primary Care Provider Unavailabl e Social History Tobacco Use Types Packs/Day Years Used Date Smoking Tobacco: Never Assessed Comments Unknown Sex and Gender Information Value Date Recorded Sex Assigned at Not on file Legal Sex Female 1:16 PM CDT Gender Identity Not on file Sexual Orientation Not on file Plan of Treatment Health Maintenance Due Date Last Done Comments DEXA Bone Density 1955 Hepatitis C Virus (HCV) Screening 1955 TdaP Immunization 1955 Colonoscopy 11/02/2000 Colorectal Cancer Screening 11/02/2000 Cologuard 11/02/2005 Immunochemical Fecal Occult Blood 11/02/2005 Mammogram 11/02/2005 Pneumococcal Immunization (5 0+ years) (1 of 1 - PCV) 11/02/2005 Zoster Immunization (1 of 2) 11/02/2005 Influenza Immunization (#1) 2023 SARS-COV-2 Immunization (2023- season) 2023 Respiratory Syncytial Virus (RSV) Immunization (Adult) (1 - 1-dose 75+ series) 11/02/2030 Hepatitis B Immunization Aged Out No longer eligible based on patient's age to complete this topic Meningococcal Immunization (ACWY) Aged Out No longer eligible based on patient's age to complete this topic Rotavirus Immunization Aged Out No lo nger eligible based on patient's age to complete this topic
--- OUTSIDE RECORDS SUMMARY | 2024-04-30 13:20 | XMS_ITS | Clinical Summary ---
Author Organization [facility] Address [address] [place] [address] Phone Care Team Providers Care Business Analyst Ecommerce Name Role Phone Van Dupree MD Primary Care Provider + Allergies Active Allergy Reactions Criticality Noted Date Comments Amitriptyline Arrhythmia High 09/12/2019 Azithromycin Rash Medium 10/22/2020 Clindamycin Rash Medium 09/20/2021 Erythromycin Rash Medium 10/22/2020 [place] Hallucination High 07/15/2018 Pregabalin Other (See Comments) Low 02/09/2017 Hairloss Topiramate Hallucination Low 09/12/2019 Unclassified Drug Other (See Comments) 05/22/19 21 Oral steroids depression Ziprasidone Hcl Other (See Comments) High 03/13/2016 Could not walk or talk or see straight. Zolpidem Hallucination High 07/15/2018 Medications cholecalciferol 50,000 unit Capsule Take 1 Capsule (50,000 Units) by mouth every 2 weeks. 2 Capsule 5 9 Active PROAIR HFA 90 mcg/actuation inhalerIndicati ons:Wheezing USE 2 PUFFS BY MOUTH EVERY 6 HOURS NEEDED FOR SHORTNESS OF BREATH 34 Gram 2 9 Active polyethylene glycol (MIRALAX) 17 gram Powder in Packet Take 1 Packet (17 Grams) by mouth 2 times daily as needed for Constipation. 0 Active SUMAtriptan (IMITREX) 100 mg tabletIndicatio ns:Migraine without aura and without status migrainosus, not intractable TAKE 1 TABLET BY MOUTH AT ONSET OF HEADACHE. MAY REPEAT IN 2 HOURS; MAX DOSE 200MG IN 24 HOURS 27 Tablet 1 0 Active pantoprazole (PROTONIX) 40 mg Tablet, Delayed Release (E.C.) TAKE 1 TABLET(40 MG) BY MOUTH DAILY 90 Tablet 0 Active Additional Information Patient taking differently: 80 mg, Reported on 09/23/2019 metFORMIN (GLUCOPHAGE) 500 mg tablet Take 500 mg by mouth 2 times daily with meals. Active semaglutide (Ozempic) 0.25 mg or 0.5 mg(2 mg/1.5 mL) Pen Injector Inject 0.25 mg by subcutaneous injection every 7 days. Active allopurinoL (ZYLOPRIM) 100 mg tabletIndicatio ns:Idiopathic chronic gout of multiple sites without tophus Take 2 Tablets (200 mg) by mouth daily. 180 Tablet 1 0 Active colchicine (COLCRYS) 0.6 mg tabletIndicatio ns:Idiopathic chronic gout of multiple sites without tophus TAKE 1 TABLET BY MOUTH DAILY 90 Tablet 3 0 Active rOPINIRole (REQUIP) 2 mg TabletIndicatio ns:RLS (restless legs syndrome) TAKE 1 TABLET BY MOUTH EVERY MORNING AND 2 TABLETS AT BEDTIME 90 Tablet 3 1 Active traMADoL (ULTRAM) 50 mg tablet Take 50 mg by mouth every 6 hours as needed. 1 Active magnesium oxide 500 mg Capsule Take 500 mg by mouth daily. Active multivitamin (DAILY-STACY) tablet Take 1 Tablet by mouth daily. Active sucralfate (CARAFATE) 1 gram tablet Take 1 Gram by mouth daily at bedtime. Active fluticasone propionate (FLOVENT HFA) 220 mcg/actuation HFA Aerosol Inhaler Take 2 Puffs by inhalation every 12 hours. Active losartan (COZAAR) 25 mg tablet Take 25 mg by mouth daily. Active DULoxetine (CYMBALTA) 60 mg Capsule, Delayed Release(E.C.)In dications:Bipol ar affective disorder, currently depressed, moderate (CMS/HCC),PTSD (post-traumatic stress disorder),Neuro pathic pain TAKE 2 CAPSULES BY MOUTH DAILY 60 Capsule 2 1 Active lamoTRIgine (LaMICtal) 100 mg tabletIndicatio ns:Bipolar affective disorder, currently depressed, moderate (CMS/HCC) TAKE 2 TABLETS BY MOUTH DAILY 60 Tablet 3 1 Active mirtazapine (REMERON) 30 mg tabletIndicatio ns:Bipolar affective disorder, currently depressed, moderate (CMS/HCC),PTSD (post-traumatic stress disorder) TAKE 1 TABLET BY MOUTH AT BEDTIME 30 Tablet 1 1 Active gabapentin (NEURONTIN) 100 mg capsuleIndicati ons:Neuropathic pain TAKE 1 CAPSULE BY MOUTH THREE TIMES A DAY 56 Capsule 1 1 Active buPROPion HCL (WELLBUTRIN XL) 150 mg Extended Release 24 hour tablet Take 150 mg by mouth daily. 2 Active bempedoic acid-ezetimibe (Nexlizet) 180-10 mg Tablet Take 1 Tablet by mouth daily. 2 Active busPIRone (BUSPAR) 15 mg Tablet Take 15 mg by mouth 2 times daily. 2 Active Austedo 9 mg Tablet 2 Active Breo Ellipta 200-25 mcg/dose Disk with Device INHALE 1 PUFF BY MOUTH DAILY 2 Active vitamin B complex-vitamin C-Folic Acid (Kathy-Stacy) 0.8 mg Tablet Take 0.8 mg by mouth daily. Active furosemide (LASIX) 20 mg tablet 2 Active Myrbetriq 50 mg Extended Release 24 hour tablet 2 Active potassium chloride (MICRO-K EXTENCAPS) 10 mEq Extended Release capsule 2 Active Active Problems Patient Care Coordination No te Formatting of this note migh t be different from the original. Karthik Tan MD-[facility] V[facility] @ [facility] complete review 12/03/14,03/01/15 SH MDD completed 08/18/15 sh Problem Noted Date Diagnosed Date Mild cognitive disorder 02/19/2019 Severe mixed bipolar I disorder with psychotic f eatures 02/09/2019 Confusion 02/05/2019 Prediabetes 01/08/2019 Acute pyelonephritis 12/23/2018 Hyponatremia 12/23/2018 Anisocoria 12/23/2018 PATTI (generalized anxiety disorder) 03/25/2018 PTSD (post-traumatic stress disorder) 03/25/2018 PAC (premature atrial contraction) 03/25/2018 Hypokalemia 10/13/2016 Acute cystitis without hematuria 10/13/2016 Right hip pain 06/08/2015 Chronic diastolic congestive heart failure 08/15 Benign hypertensive cardiomyopathy with heart fa ilure 07/19/2011 Acute hepatitis Bipolar affective disorder, currently depressed, moderate Resolved Problems Problem Noted Date Diagnosed Date Resolved Date Extrapyramidal disease 12/24/201802/09 Sepsis 12/23/2018 02/09/2019 [place] toxicity 10/17/2016 10/24/2016 Dehydration 10/13/2016 10/24/2016 Nausea 10/13/2016 10/24/2016 Bipolar 1 disorder, depressed 10/13/2016 03/25/2018 After-cataract of right eye with vision obscured 10/20/2014 02/09/2019 Choroidal nevus of left eye 10/20/2014 02/09/2019 Pseudophakia of both eyes 10/20/2014 Myopic astigmatism of both eyes 10/20/2014 02/09/2019 Cervicalgia 06/10/2014 02/09/2019 MDD (major depressive disorder), severe 11/04/2013 03/25/2018 Overview (11/04/2013): Stable on treatment Personal history of colonic polyps 02/21/2013 11/04/2013 Severe bipolar I disorder, m ost recent episode depressed, with psychotic behavior 07/10/2012 02/09/2019 Enthesopathy of hip region 03/06/2012 0 02/09/2019 Myalgia and myositis, unspecified 01/17/2012 02/09/2019 Attention deficit disorder of adult 03/25/2018 Overview (11/04/2013): Under Dr. Ibarra Hallucinations 02/09/2019 Tardive dyskinesia 0 Memory change 02/09/2019 Encounters Date Type Department Care Team Description 03/25/2024 External Device Data [facility] ABSTRACTION Provider, Abstract 03/04/2024 External Device Data [facility] ABSTRACTION Provider, Abstract 02/27/2024 External Device Data [facility] ABSTRACTION Provider, Abstract 02/26/2024 External Device Data [facility] ABSTRACTION Provider, Abstract from Last 3 Months Immunizations Immunization Administration Dates Next Due (ADACEL/BOOSTRIX)(10 YR UP) TDAP VACCINE, 0.5ML, IM 08/16/2011 (PNEUMOVAX 23)(50 YRS UP) PN EUMOCOCCAL POLYSACCHARIDE (PPV23) 0.5 ML, IM 03/04/2014 INFLUENZA VACCINE QUADRIVALENT 3 YR UP PF IM ,11/17/2015 INFLUENZA VACCINE QUADRIVALENT 6 MOS UP PF IM Influenza Seasonal Unspecified Formulation IM 11/14/2017 Influenza Vaccine Split 3+ Yrs IM 01/13/2015 Family History Medical History Relation Name Comments Alcohol abuse Brother 1 1/2 LOBO Cancer Brother 1 1/2 LOBO TESTICULAR Healthy Brother 1 1/2 LOBO Testicular canc er, recovering alcoholic High Cholesterol Brother 1 1/2 LOBO Hypertension Brother 1 1/2 LOBO Healthy Brother 2 1/2 ARTY High Cholesterol Brother 2 1/2 ARTY Hypertension Brother 2 1/2 ARTY Healthy Brother 3 1/2 FRAN High Cholesterol Brother 3 1/2 FRAN Hypertension Brother 3 1/2 FRAN Alcohol abuse Brother 4 1/2 MICHAEL Drug Abuse Brother 4 1/2 MICHAEL Other Brother 4 1/2 MICHAEL SEIZURES Seizures Brother 4 1/2 MICHAEL Alcohol abuse Brother 5 1/2 AVILA Healthy Brother 5 1/2 AVILA Other Daughter CHERELLE SPINA BIFIIDA Hypertension Father Avila Kidney Disease Father Avila Cancer Physical Abuse Father Avila Sexual Abuse Father Avila Unknown Father Avila Hypertension Maternal Grandfather Bill Unknown Maternal Grandfather Bill Hypertension Maternal Grandmother Divina Unknown Maternal Grandmother Divina Cancer Mother ARTHUR AML Cataract Mother ARTHUR Depression Mother ARTHUR Emphysema Mother ARTHUR High Cholesterol Mother ARTHUR Hypertension Mother ARTHUR Physical Abuse Mother ARTHUR Breast Cancer Other pG Aunt x3 Hypertension Paternal Grandfather Butch Lung Cancer Paternal Grandfather Butch Sexual Abuse Paternal Grandfather Butch Emphysema Paternal Grandmother Norman Hypertension Paternal Grandmother Norman Lung Cancer Paternal Grandmother Norman Cancer Sister 1 FERDINAND SKIN Cataract Sister 1 FERDINAND Depression Sister 1 FERDINAND High Cholesterol Sister 1 FERDINAND Hypertension Sister 1 FERDINAND Migraines Sister 1 FERDINAND Healthy Sister 2 Jana (1/2) Alcoholic Alcohol abuse Sister 3 Teetee (1/2 sister) Drug Abuse Sister 3 Teetee (1/2 sister) Healthy Sister 3 Teetee (1/2 sister) Drug abus e Healthy Son 1 MICHELLE Healthy Son 2 ZINA Amblyopia Neg Hx Blindness Neg Hx Colon Cancer Neg Hx Detachment/Tears Neg Hx Fuchs' dystrophy Neg Hx Glaucoma Neg Hx Macular Degen Neg Hx Ovarian Cancer Neg Hx Strabismus Neg Hx Relation Name Status Comments Brother 1 /2 LOBO Alive Brother 2 02/06 ARTY Alive Brother 3 02/06 FRAN Alive Brother 4 02/06 MICHAEL Alive Brother 5 02/06 AVILA Alive Daughter CHERELLE Alive Father Avila Other Maternal Grandfather Bill Maternal Grandmother Divina Mother ARTHUR Other pG Aunt x3 Alive Paternal Grandfather Butch Paternal Grandmother Norman Sister 1 FERDINAND Alive Sister 2 Jana (1/2) Sister 3 Teetee (1/2 sister) Son 1 MICHELLE Alive Son 2 ZINA Alive Social History Tobacco Use Types Packs/Day Years Used Date Smoking Tobacco: Never Smokeless Tobacco: Never Tobacco Cessation:Counseling Given: No Comments:Yojana never smoked Alcohol Use Standard Drinks/Week Comments Yes 4 (1 standard drink = 0.6 oz pure alcohol) 1 GLASS BEER/WINE 2-3 TIMES A WEEK Comments No Sex and Gender Information Value Date Recorded Sex Assigned at Not on file Legal Sex Female 3:33 AM BRANNER MACHINE TENDER Gender Identity Not on file Sexual Orientation Not on file Occupation Industry Job Start Date Job End Date Not on file Not on file Not on file Not on file Last Filed Vital Signs Vital Sign Reading Time Taken Comments Blood Pressure 128/72 06/10/2020 8:32 AM CDT Pulse 84 06/10/2020 8:32 AM CDT Temperature 37.2 C (99 F) 02/20/2019 11:34 AM BRANNER MACHINE TENDER Respiratory Rate 20 06/10/2020 8:32 AM CDT Oxygen Saturation 97% 09/19/2019 10:55 AM CDT RA Inhaled Oxygen Concentration - - Weight 114.3 kg (252 lb) 06/10/2020 8:32 AM CDT Height 167.6 cm (5' 6 ) 06/10/2020 8:32 AM CDT Body Mass Index 40.67 06/10/2020 8:32 AM CDT Plan of Treatment Health Maintenance Due Date Last Done Comments DIABETES ANNUAL FOOT EXAM 11/02/1973 DIABETES MICROALBUMIN ANNUAL SCREEN 11/02/1973 FIT-DNA Q 3 years 11/02/2000 Flex Sig/CT Colonography Q 5 years 11/02/2000 ZOSTER VACCINE (1 of 2) 11/02/2005 PNEUMOCOCCAL VACCINE 50+ YEA RS (2 of 2 - PCV) 03/04/2015 03/04/2014 RSV VACCINE (60+ or ) (1 - Risk 60-74 years 1-dose series) 2015 COLORECTAL SCREENING 02/21/2016 02/20/2013, 02/20/19 14 Colorectal Cancer Screening 10/06/2016 FIT/FOBT Q 1 year 10/05/2017 10/05/2016 BREAST CANCER SCREENING 01/11/2020 01/11/20 19, 03/30/2016, 03/23/2016, Additional history exists LDL CHOLESTEROL ANNUAL 09/09/2020 0, 02/08/2019, 11/01/2018, Additional history exists DTAP/TDAP/TD VACCINES (2 - T d or Tdap) 08/15/2021 08/16/2011 DIABETES HBA1C Q 6 MONTHS 02/02/20222021, 09/10/2019, 02/10/2019, Additional history exists INFLUENZA VACCINE (#1) 2023 9, 10/31/2017, 11/14/2016, Additional history exists COVID-19 Vaccine (2 - 2023-2 5 season) 2023 05/16/2020 DIABETES ANNUAL RETINAL EXAM 09/25/2024, 09/26/2023, 09/26/2023, Additional history exists OSTEOPOROSIS SCREENING Completed 11/12/2018 Medical Devices Implanted Type Area Control Clerk Auditing Device Identifier Shelf Expiration Date Model / Serial / Lot Bladder Stimulator-01/05 Implanted:01/16 (Quantity not on file) [employer] [id number] / [id number] / Description:MRI CONDITIONAL. Transmit/Receive only coil on 1.5 Cherry. Patient must put device into MRI mode w/ charged remote. -02/06/2019 jean Procedures Procedure Name Priority Date/Time Associated Diagnosis Comments LIPID PANEL Routine 09/10/2019 4:44 PM CDT Body mass index 40.0-44.9, adult ([facility]) Encounter for long-term (current) use of medications Essential hypertension, benign Gout Abnormal blood chemistry HEMOGLOBIN A1C Routine 09/10/2019 4:44 PM CDT Body mass index 40.0-44.9, adult ([facility]) Encounter for long-term (current) use of medications Essential hypertension, benign Gout Abnormal blood chemistry MAMMO 3D RAYSA SCREEN BILAT W OR WO CAD Routine 01/10/2019 11:23 AM BRANNER MACHINE TENDER Screening mammogram, encounter for XR DEXA BONE DENSITY AXIAL 1 OR MORE SITES Routine 11/12/2018 3:39 PM CDT Screening for osteoporosis OCCULT BLOOD IMMUNOASSAY, COLORECTAL SCREEN Routine 10/05/2016 5:36 PM CDT Blood in stool from Last 3 Months or Most Recently Relevant to Health Maintenance Results * (ABNORMAL) HEMOGLOBIN A1C (09/10/2019 4:44 PM CDT) HEMOGLOBIN A1C 6.8(H) <5.7 % 09/10/2019 9:15 PM CDT [facility] EST. AVG GLUCOSE, A1C 148 mg/dL 09/10/2019 9:15 PM CDT [facility] Blood Venipuncture / Unknown 09/10/2019 4:44 PM CDT 09/10/2019 4:44 PM CDT Narrative [facility] - 09/10/2019 9:15 PM CDT HGB A1C INTERPRETATION NORMAL: <5.7% PRE-DIABETES: 5.7 - 6.4% DIABETES: 6.5% OR GREATER us External Provider [facility] CHEMISTRY ORDERABLES Fin al Result [facility] CLIA# [id number] [address] [place] [address] * (ABNORMAL) LIPID PANEL (09/10/2019 4:44 PM CDT) [facility] Signature CHOLESTEROL 179 <200 mg/dL 09/10/2019 7:52 PM CDT [facility] TRIGLYCERIDE 143 <150 mg/dL 09/10/2019 7:52 PM CDT [facility] HDL 66(H) 40 - 59 mg/dL 09/10/2019 7:52 PM CDT [facility] LDL CALCULATED 84 <100 mg/dL 09/10/2019 7:52 PM T [facility] NON-HDL CHOLESTEROL 113 <130 mg/dL 09/10/2019 7:52 PM T [facility] Blood Venipuncture / Unknown 09/10/2019 4:44 PM CDT 09/10/2019 4:44 PM CDT [facility]AT[facility] - [facility] - 09/10/2019 7:52 PM CDT TOTAL CHOLESTEROL mg/dL Desirable <200 Borderline high 200-239 High >=240 TRIGLYCERIDES mg/dL Normal <150 Borderline high 150-199 High 200-499 Very high >=500 HDL CHOLESTEROL mg/dL Low <40 Normal 40-59 Desirable >=60 NON HDL CHOLESTEROL mg/dL Optimal <130 Near Optimal 130-159 Borderline High 160-189 Very High >=190 CALCULATED LDL mg/dL LDL <70, OPTIMAL if have Atherosclerotic cardiovascular disease (ASCVD) or intermediate or higher (>7.5%) 10 year risk of ASCVD including most adults with diabetes. LDL <100, Optimal in adult patients with low (<7.5%) 10 year ASCVD risk LDL 100-160, Suboptimal LDL >160, High LDL >190, Very high ATPIII Guidelines Reference Ranges for Lipid Panels (NCEP/AMA) . us External Provider [facility] CHEMISTRY ORDERABLES Fin al Result [facility] CLIA# [id number] [address] [place] [address] * MAMMO SCRN BILAT 3D RAYSA W OR WO CAD (01/10/2019 11:23 AM BRANNER MACHINE TENDER) Anatomical Region Laterality Modality Breast Bilateral Mammography 01/10/2019 11:2 3 AM BRANNER MACHINE TENDER Impressions 01/10/2019 5:40 PM BRANNER MACHINE TENDER IMPRESSION: No mammographic evidence of malignancy. RECOMMENDATIONS: Routine screening mammogram in one year. DICTATION LOCATION: [facility] Narrative 01/10/2019 5:40 PM BRANNER MACHINE TENDER BILATERAL FULL-FIELD DIGITAL SCREENING MAMMOGRAM WITH CAD WITH 3D TOMOSYNTHESIS DATE: 01/10/2019 11:23 AM HISTORY: Routine screening. TECHNIQUE: Full-field digital craniocaudal and mediolateral oblique projections of both breasts were obtained. Low-dose full-field digital breast tomosynthesis examination was performed with 2D and 3D acquisitions. Examination is read in conjunction with computer aided detection. COMPARISON: January 2015 through March 2016. BREAST COMPOSITION: Scattered fibroglandular densities. FINDINGS: No suspicious mass, suspicious microcalcifications, or architectural distortion in either breast is identified. Since the prior study, there has been no significant interval change. The computer aided diagnosis detects no significant abnormality. OVERALL FINAL ASSESSMENT: BI-RADS CATEGORY 1 - Negative Procedure Note Lowell Franco MD - 01/10/2019 BILATERAL FULL-FIELD DIGITAL SCREENING MAMMOGRAM WITH CAD WITH 3D TOMOSYNTHESIS DATE: 01/10/2019 11:23 AM HISTORY: Routine screening. TECHNIQUE: Full-field digital craniocaudal and mediolateral oblique projections of both breasts were obtained. Low-dose full-field digital breast tomosynthesis examination was performed with 2D and 3D acquisitions. Examination is read in conjunction with computer aided detection. COMPARISON: January 2015 through March 2016. BREAST COMPOSITION: Scattered fibroglandular densities. FINDINGS: No suspicious mass, suspicious microcalcifications, or architectural distortion in either breast is identified. Since the prior study, there has been no significant interval change. The computer aided diagnosis detects no significant abnormality. OVERALL FINAL ASSESSMENT: BI-RADS CATEGORY 1 - Negative IMPRESSION: No mammographic evidence of malignancy. RECOMMENDATIONS: Routine screening mammogram in one year. DICTATION LOCATION: [facility] us Miguelito Hemphill MD MAMMO ORDERABLES Final Result * XR DEXA BONE DENSITY AXIAL 1 OR MORE SITES (11/12/2018 3:39 PM CDT) Anatomical Region Laterality Modality Digital Radiogra phy 11/12/2018 3:39 PM CDT Narrative 11/12/2018 3:43 PM CDT XR DEXA BONE DENSITY AXIAL 1 OR MORE SITES DATE: 11/12/2018 3:39 PM HISTORY: 63 years old Female with post menopausal symptoms. PROCEDURE: Planar images of the lumbar spine, forearm and hip(s) using a [employer] DEXA scanner for bone mineral density determination (BMD). FINDINGS: Lumbar Spine (L1-L4) 1.158 gm/cm2, T-score: -0.2 Left femoral neck 0.879 gm/cm2, T-score: -1.1 Right femoral neck 0.940 gm/cm2, T-score: -0.7 Left Radius 33% 0.800 gm/cm2, T-score: -0.9 Comments: None IMPRESSION Osteopenic bone mineral density. DEFINITIONS: Normal: T-score above -1.0 Osteopenia T-score less than -1.0 and above -2.5 Osteoporosis: T-score < -2.5 FRAX FRACTURE RISK ASSESSMENT: Risk factors: None. 10 Year Probability Of Fracture -Major Osteoporotic: 7.0% -Hip: 0.5% -Comparison population: [place], A major osteoporotic fracture is defined as a fracture of the spine, forearm, hip or shoulder. FOLLOW-UP RECOMMENDATIONS: Patients without high risk factors for osteoporosis: T-score -1.0 to -1.5 - Consider repeat BMD in 5-10 years T-score -1.5 to -2.0 - Consider repeat BMD in 3-5 years T-score -2.0 to - 2.5 - Consider repeat BMD every 2 years Patients on treatment for osteoporosis: 1-2 years after initiation of treatment and every 2 [address] Warner Mcdaniel DO DICTATION LOCATION: Location 1 - [facility] Procedure Note Warner Mcdaniel DO - 11/12/2018 XR DEXA BONE DENSITY AXIAL 1 OR MORE SITES DATE: 11/12/2018 3:39 PM HISTORY: 63 years old Female with post menopausal symptoms. PROCEDURE: Planar images of the lumbar spine, forearm and hip(s) using a [employer] DEXA scanner for bone mineral density determination (BMD). FINDINGS: Lumbar Spine (L1-L4) 1.158 gm/cm2, T-score: -0.2 Left femoral neck 0.879 gm/cm2, T-score: -1.1 Right femoral neck 0.940 gm/cm2, T-score: -0.7 Left Radius 33% 0.800 gm/cm2, T-score: -0.9 Comments: None IMPRESSION Osteopenic bone mineral density. DEFINITIONS: Normal: T-score above -1.0 Osteopenia T-score less than -1.0 and above -2.5 Osteoporosis: T-score < -2.5 FRAX FRACTURE RISK ASSESSMENT: Risk factors: None. 10 Year Probability Of Fracture -Major Osteoporotic: 7.0% -Hip: 0.5% -Comparison population: [place], A major osteoporotic fracture is defined as a fracture of the spine, forearm, hip or shoulder. FOLLOW-UP RECOMMENDATIONS: Patients without high risk factors for osteoporosis: T-score -1.0 to -1.5 - Consider repeat BMD in 5-10 years T-score -1.5 to -2.0 - Consider repeat BMD in 3-5 years T-score -2.0 to - 2.5 - Consider repeat BMD every 2 years Patients on treatment for osteoporosis: 1-2 years after initiation of treatment and every 2 years [address] Warner Mcdaniel, DICTATION LOCATION: Location 1 - [facility] us Miguelito Hemphill MD DIAGNOSTIC IMAGING ORDERABLES Fi nal Result * OCCULT BLOOD IMMUNOASSAY, COLORECTAL SCREEN (10/05/2016 5:36 PM CDT) OCCULT BLOOD, STOOL Negative Negative 10/11/2016 6:31 PM CDT [facility] Stool STOOL SPECIMEN / Unknown Collection / Unknown 10/05/2016 5:36 PM CDT 10/11/2016 5:36 PM CDT us Miguelito Hemphill MD BODY FLUIDS AND STOOLS Final Res ult [facility]# [id number] [address] [place] [address] from Last 3 Months or Most Recently Relevant to Health Maintenance Insurance RX [employer] RX Member Subscriber Plan / Payer (Ef fective 2016-Present) Name:Ifeoma Tavares Relation to Subscriber:Self Name:TavaresIfeoma reilly Dayana Payer ID:Not on file Group ID:[id number] Type:RX Medicare Part D Address: [place] RX GO PLANS (INTERNAL) [facility] Plans Advance Directives For more information, please contact: [phone] * Full Code (Latest Code Status on File) Date Activated Date Inactivated Comments 02/09/2019 2:31 PM 02/19/2019 3:30 PM * Full Code Date Activated Date Inactivated Comments 02/05/2019 5:59 AM 02/09/2019 11:50 AM * Full Code Date Activated Date Inactivated Comments 12/23/2018 9:39 PM 12/30/2018 2:08 PM * Full Code Date Activated Date Inactivated Comments 03/25/2018 5:07 AM 03/28/2018 5:14 PM * Full Code Date Activated Date Inactivated Comments 07/21/2015 10:27 AM 07/21/2015 1:49 PM Care Teams Business Analyst Ecommerce Relationship Specialty Start Date End Date Van Dupree MD [address] [place] [address] PCP - General Internal Medicine 09/28/20
--- OUTSIDE RECORDS SUMMARY | 2024-04-30 13:20 | XMS_ITS | Encounter Summary ---
Author Organization [facility] Address [address] [place] [address] Care Team Providers Care Ophthalmic Asst Name Role Phone Van Dupree MD Primary Care Provider [phone] Reason for Visit * Reason Onset Date Comments Follow Up Call 04/30/2024 Encounter Details Date Type Department Care Team (Late st Contact Info) Description 04/30/2024 Telephone [facility] Interventional Pain Management [place] [address] [id number] Karrie North, RN Follow Up Call Social History Tobacco Use Types Packs/Day Years Used Date Smoking Tobacco: Never Smokeless Tobacco: Never Comments:non smoker Alcohol Use Standard Drinks/Week Comments Yes 1.7 (1 standard drink = 0.6 oz p ure alcohol) PHQ-2 Answer Date Recorded PHQ-2 Score - If the patient scores above 3, please move on to questions 3-9 0 06/16/2020 Comments No Sex and Gender Information Value Date Recorded Sex Assigned at Female 02/27/2024 9:22 AM MANAGER BUSINESS DEVELOPMENT [employer]OSPICE Legal Sex Female 11:59 AM MANAGER BUSINESS [employer]ELOP[employer]OS[employer] Gender Identity Not on file Sexual Orientation Not on file documented as of this encounter Functional Status * RETIRED Are you deaf or do you have serious difficulty hearing Answer Date of Assessment Author Status No 07/14/2020 3:00 PM CDT Activ e * RETIRED Are you blind or do you have serious difficulty seeing, even when wearing glasses? Answer Date of Assessment Author Status No 07/14/2020 3:00 PM CDT Activ e * Do you have serious difficulty walking or climbing stairs? Answer Date of Assessment Author Status Yes 07/14/2020 3:00 PM CDT Mignon Flores RN Active * Do you have difficulty dressing or bathing? Answer Date of Assessment Author Status No 07/14/2020 3:00 PM CDT Mignon Flores RN Active * Because of a physical, mental, or emotional condition, do you have difficulty doing errands alone such as visiting a doctor's office or shopping? Answer Date of Assessment Author Status No 07/14/2020 3:00 PM CDT Mignon Flores RN Active documented as of this encounter Mental Status * Because of a physical, mental, or emotional condition, do you have serious difficulty concentrating, remembering, or making decisions? Answer Entry Date Author Status No 07/14/2020 3:00 PM CDT Mignon Flores RN Active documented in this encounter Progress Notes * Karrie North RN - 04/30/2024 8:30 AM CDT Pt left messge stating still having a lot of pain. Was seen on 03/24/24 and received midline T12-L1 interlaminar epidural steroid injection. Pt contacted and reports 10% relief w/injection lasting 2 weeks. Pain continues to same areas of back, denies radiation of pain to extremities. Denies loss of control of bowel/bladder, denies falls/injury since injection. Not currently taking any oral medication for pain, not using any additional therapies such as ice/heat or topical meds/ Not doing any stretches or physical therapy. Pt advised will discuss with providers regarding next steps and someone will reach out to her. Pt verbalized understanding. documented in this encounter Plan of Treatment Not on file documented as of this encounter Visit Diagnoses Not on filedocumented in this encounter Care Teams Ophthalmic Asst Relationship Specialty Start Date End Date Van Dupree MD [address] [facility] [address] - [facility] [address] [place] [id number] PCP - General INTERNAL MEDICINE 02/13/20 documented as of this encounter
--- OUTSIDE RECORDS SUMMARY | 2024-04-30 13:20 | XMS_ITS | Clinical Summary ---
Author Organization [facility] Address [address] [place] [address] Care Team Providers Care Web Solutions Architect Name Role Phone Van Dupree MD Primary Care Provider [phone] Allergies Active Allergy Reactions Criticality Noted Date Comments Zolpidem Hallucinations 02/13/2020 Amitriptyline Unknown 09/12/2019 Arrhythmia Clindamycin Rash Low 02/13/2020 Erythromycin Rash Low 02/13/2020 Ciales Hallucinations 02/13/2020 Pregabalin Other (see comment) Low 02/09/2017 Hairloss Hairloss Topiramate Hallucinations 09/12/2019 Medications allopurinol 100 MG tablet Take 2 tablets (200 mg total) by mouth daily. 02/10/2020 Active DULoxetine 60 MG capsule Take 2 capsules (120 mg total) by mouth daily. 02/08/2020 Active ONETOUCH VERIO test strip 06/09/2020 Active losartan (COZAAR) 50 MG tablet Take 1 tablet (50 mg total) by mouth daily. Active mirtazapine 30 MG tablet Take 1 tablet (30 mg total) by mouth nightly at bedtime. 06/09/2020 Active pantoprazole EC 40 MG tablet Take 1 tablet (40 mg total) by mouth 2 (two) times a day. 06/09/2020 Active SUMAtriptan 100 MG tablet Take 1 tablet (100 mg total) by mouth 2 (two) times daily as needed. 06/09/2020 Active potassium chloride CR (KLOR-CON M) 20 MEQ tablet Take 1 tablet (20 mEq total) by mouth 2 (two) times a day. 12/20/2021 Active MYRBETRIQ 50 MG 24 hr tablet Take 1 tablet (50 mg total) by mouth daily. 12/20/2021 Active gabapentin (NEURONTIN) 400 MG capsule Take 1 capsule (400 mg total) by mouth 3 (three) times a day. 12/20/2021 Active lamoTRIgine (LAMICTAL) 150 MG tablet Take 200 mg by mouth daily. 12/20/2021 Active carvedilol (COREG) 3.125 MG tablet Take 1 tablet (3.125 mg total) by mouth 2 (two) times daily with meals. 12/20/2021 Active AUSTEDO 9 MG Tab Take 24 mg by mouth 2 (two) times a day. 12/13/2021 Active B bkwzsjh-E-llnqo acid 0.8 mg (DIALYVITE/NEPH RO-NELSON) Tab tablet Take 1 tablet by mouth daily. Active ezetimibe (ZETIA) 10 MG tablet Take 1 tablet (10 mg total) by mouth daily. Active Empagliflozin-m etFORMIN HCl ER (SYNJARDY XR) 12.5-1000 MG TABLET SR 24 HR Take 1 tablet by mouth daily. Active furosemide (LASIX) 40 MG tablet Take 1 tablet (40 mg total) by mouth every morning. 12/13/2023 Active amantadine (SYMMETREL) 100 MG tablet 11/20/2023 Active QUEtiapine (SEROQUEL) 200 MG tablet 11/20/2023 Active Active Problems Problem Noted Date Diagnosed Date Thoracic radiculopathy 02/27/2024 Bipolar affective disorder, currently depressed, moderate ([facility]) 07/15/2020 Type 2 diabetes mellitus ([facility]) 09/16 Overview (07/15/2020): 08/24 A1c 6.8 History of TIA (transient ischemic attack) 08/05 Overview (07/15/2020): 12/24 possbile TIA 12/24 MRA head: No hemodynamically significant stenosis 07/25 possible TIA 08/24 Echo: bubble negative... 08/24 Event recorder 24 days: SR at 89, range 50-120, 1% PACs, 1% PVCs, symptoms 10x correlated SR at 65-110, with 1 PVC Abnormal EKG 08/05/2019 Overview (07/15/2020): 08/22 EKG: SR at 62, PRWP, LVH voltage, T-wave abnormality V1-V4 08/22 Lexiscan nuclear: No ischemia, EF 67% 08/24 EKG: SR at 89, PRWP, LVH voltage, nonspecific ST/TW abnormality, leftward axis, mildly prolonged QT, intervals [phone] (on amitriptyline) 08/24 Lexiscan nuclear: No ischemia, apical lateral inconsistent attenuation artifact, EF 64% 09/24 EKG: SR at 75, PRWP, LVH voltage, leftward axis, intervals [id number] (off amitriptyline) HTN (hypertension), benign 08/05/2019 Overview (07/15/2020): 12/22 Echo: Normal LVEF, mild LAE, mild MR/TR, PASP 36 01/23 Echo: EF 59%, mild LVH, normal diastolic function, mild MR/TR, RVSP 22 08/24 Echo (TDS - Definity), EF 55-60%, normal chamber size, mild MR/TR, RVSP 33, bubble negative Pure hypercholesterolemia 08/05/2019 Overview (07/15/2020): 09/24 Cholesterol 179 HDL 66 LDL 84 [...] 177 HDL 67 LDL 72 triglyceride 190 Mild cognitive disorder 02/19/2019 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 ([facility]) 02/09/2019 Confusion 02/05/2019 Prediabetes 01/08/2019 Acute pyelonephritis 12/23/2018 Anisocoria 12/23/2018 Hyponatremia 12/23/2018 PATTI (generalized anxiety disorder) 03/25/2018 PTSD (post-traumatic stress disorder) 03/25/2018 PAC (premature atrial contraction) 03/25/2018 Precordial pain 09/03/2017 Overview (07/15/2020): 08/22 chest CTA: No PE Orthopedic aftercare 06/19/2017 Hypokalemia 10/13/2016 Right hip pain 06/08/2015 Chronic diastolic congestive heart failure ([facility]) 08/16/2011 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 ([facility]) 07/19/2011 Encounters Date Type Department Care Team Description 04/30/2024 Telephone [facility] Interventional [place] [address] [id number] Karrie North RN Follow Up Call 03/24/2024 2:00 PM EDITORIAL WRITER - 03/24/2024 2:20 PM EDITORIAL WRITER Surgery [facility] [place] [address] [phone] Jackie Patricio MD INJECTION EPIDURAL STEROID THORACIC T12-L1 03/24/2024 1:15 PM EDITORIAL WRITER - 03/24/2024 2:37 PM EDITORIAL WRITER Hospital Encounter [facility] [place] [address] [id number] Jackie Patricio MD Discharge Disposition: Home or Self Care (Routine Discharge) 03/24/2024 Travel 02/27/2024 9:23 AM EDITORIAL WRITER - 02/27/2024 11:59 PM EDITORIAL WRITER Hospital Encounter [facility] [place] [address] [id number] Naseer, Jackie, MD Discharge Disposition: Home or Self Care (Routine Discharge) 02/27/2024 Travel from Last 3 Months Immunizations Name Administration Dates Next Due Influenza (Generic) 11/14/2016,01/13/2015 Influenza Adult (Generic) 12/27/2018,10/31/2017, 11/17/2015 PFIZER COVID-19 (ORIGINAL FO RMULATION, PURPLE CAP) mRNA, LNP-S, PF, 30 MCG/0.3 ML DOSE 05/16/2020 Pneumococcal (Pneumovax 23) 03/04/2014 Tdap (Generic) 08/16/2011 Family History Medical History Relation Comments Cancer Brother Cancer Father No Known Problems Maternal Aunt No Known Problems Maternal Grandfather No Known Problems Maternal Grandmother No Known Problems Maternal Uncle COPD Mother Cancer Mother No Known Problems Paternal Aunt No Known Problems Paternal Grandfather No Known Problems Paternal Grandmother No Known Problems Paternal Uncle Asthma Sister Cancer Sister Relation Status Comments Brother Father Maternal Aunt Maternal Grandfather Maternal Grandmother Maternal Uncle Mother Paternal Aunt Paternal Grandfather Paternal Grandmother Paternal Uncle Sister Social History Tobacco Use Types Packs/Day [...] Sex Assigned at Female 02/27/2024 9:22 AM EDITORIAL WRITER Legal Sex Female 11:59 AM EDITORIAL WRITER Gender Identity Not on file Sexual Orientation Not on file Last Filed Vital Signs Vital Sign Reading Time Taken Comments Blood Pressure 119/89 03/24/2024 2:27 PM EDITORIAL WRITER Pulse 83 03/24/2024 2:27 PM EDITORIAL WRITER Temperature 36.9 C (98.4 F) 03/24/2024 1:57 PM EDITORIAL WRITER Respiratory Rate 17 03/24/2024 2:27 PM EDITORIAL WRITER Oxygen Saturation 93% 03/24/2024 2:27 PM EDITORIAL WRITER Inhaled Oxygen Concentration - - Weight 113.4 kg (250 lb) 03/24/2024 1:57 PM EDITORIAL WRITER Height 167.6 cm (5' 6 ) 03/24/2024 1:57 PM EDITORIAL WRITER Body Mass Index 40.35 03/24/2024 1:57 PM EDITORIAL WRITER Plan of Treatment Health Maintenance Due Date Last Done Comments Colorectal Cancer Screening Colonoscopy (10 Years) 1955 Kidney Health Evaluation 1955 Diabetes: Retinopathy Eye Exam 11/02/1973 Hepatitis C 11/02/1973 Zoster Vaccines (1 of 2) 11/02/2005 Pneumococcal Vaccine: 65+ Years (2 of 2 - PCV) 03/04/2015 03/04/2014 RSV Immunization or 60+ Years (1 - Risk 60-74 years 1-dose series) 2015 Lipid Panel 09/09/2020 09/10/2019 Annual Medicare Wellness Visit 11/02/2020 Mammogram Screening 01/10/2021 01/10/2019, 03/30/2016, 03/23/2016, Additional history exists DTaP, Tdap and Td Vaccines (2 - Td or Tdap) 08/15/2021 08/16/2011 Hemoglobin A1C 02/02/2022 08/03/2021, 06/05, 09/10/2019, Additional history exists COVID-19 Vaccine (2 - 2023- season) 2023 05/16/2020 Influenza Adult (#1) 2023 12/27/2018, 10/31/2017, 11/14/2016, Additional history exists Dexa Scan (General) Completed 11/12/2018, 9 Meningococcal B Vaccine Aged Out No l onger eligible based on patient's age to complete this topic Meningococcal Vaccine Aged Out No marvin elliot eligible based on patient's age to complete this topic RSV Immunizations Under 20 Months Aged Out No longer eligible based on patient's age to complete this topic Medical Devices Implanted Type Area Carbonizer Device Identifier Shelf Expiration Date Model / Serial / Lot Bone Screw [employer] Quickfix Titanium [id number] - [id number] Implanted:Qty: 2 on 12/04/2023 by Jordi Rosario DPM at [facility] Screw Left: Foot [employer] [id number] 2 Description:From sterile andriy cristina tray Bladder Stimulator Stimulator Implant Vagal Nerve Stimulator Stimulator Implant Wire Fixation Bruce Stainless Steel L9 In Od.045 In 2 Tr - [id number] Implanted:Qty: 1 on 04/17/2023 by Jordi Rosario DPM at [facility] Wire Right: Foot [employer] 1600-945N S / / Description:1ST TOE Wire Fixation Bruce Stainless Steel L9 In Od.045 In 2 Tr - [id number] Implanted:Qty: 1 on 04/17/2023 by Jordi Rosario DPM at [facility] Wire Right: Toe [employer] 1600-945N S / / Description:2ND TOE Procedures Procedure Name Priority Date/Time Associated Diagnosis Comments NJX INTERLAMINAR CRV/THRC 03/24/2024 2:20 PM EDITORIAL WRITER Thoracic radiculopathy XR PAIN CLINIC C-ARM Today 03/24/2024 1:19 PM EDITORIAL WRITER HEMOGLOBIN, GLYCOSYLATED Routine 06/21/2020 4:43 PM CDT Chronic right shoulder pain from Last 3 Months or Most Recently Relevant to Health Maintenance Results * XR PAIN CLINIC C-ARM (03/24/2024 1:19 PM EDITORIAL WRITER) Narrative Radiology, Technologist - 03/24/2024 1:19 PM EDITORIAL WRITER This report does not contain a radiologist's interpretation. Please review associated procedure and/or operative report. us Jackie Patricio MD GENERAL IMAGING Final Result * HEMOGLOBIN, GLYCOSYLATED (06/21/2020 4:43 PM CDT) HGB A1C 5.6 <5.7 % 06/21/2020 10:48 PM CDT [facility] Comment: ADA GUIDELINES 2010 5.7 TO 6.4% INCREASED RISK OF DIABETES > OR = 6.5% CONSISTENT WITH DIABETES ESTIMATED AVG GLUCOSE 114 mg/dL 06/21/2020 10:48 PM CDT [facility] 06/21/2020 4:43 PM CDT us Jose Guadalupe Clark MD LABORATORY Final Result [facility] [address] [place] [address], from Last 3 Months or Most Recently Relevant to Health Maintenance Insurance [facility] Care Teams Web Solutions Architect Relationship Specialty Start Date End Date Van Dupree MD [address] - [facility] [address] [place] [address] PCP - General INTERNAL MEDICINE 02/13/20
--- OUTSIDE RECORDS SUMMARY | 2024-04-30 13:20 | XMS_ITS | Encounter Summary ---
Author Organization [facility] [facility] Address [address] [place] [address] Care Team Providers Care Commercial Real Estate Manager Name Role Phone Van Dupree MD Primary Care Provider + Encounter Details Date Type Department Care Team (Late st Contact Info) Description 11/12/2001 Outpatient Historical [facility] Tomy Blakely MD [facility] [place] [address] Er, Authorized P NO ADDRESS ON FILE SPEECH DISTURBANCE NEC (Primary Dx) Social History Tobacco Use Types Packs/Day Years Used Date Smoking Tobacco: Never Assessed Comments Unknown Sex and Gender Information Value Date Recorded Sex Assigned at Not on file Legal Sex Female 3:33 AM BIRTHING NURSE Gender Identity Not on file Sexual Orientation Not on file documented as of this encounter Plan of Treatment Not on file documented as of this encounter Visit Diagnoses Diagnosis Other speech disturbance- Primary documented in this encounter Care Teams Commercial Real Estate Manager Relationship Specialty Start Date End Date Van Dupree MD [address] [place] [phone] PCP - General Internal Medicine 09/28/20 documented as of this encounter
--- OUTSIDE RECORDS SUMMARY | 2024-04-30 13:20 | XMS_ITS | Encounter Summary ---
Author Organization [facility] Health Address [address] [place] [address] Care Team Providers Care Sampling Theory Teacher Name Role Phone Miguelito Hemphill MD Primary Care Provider [phone] Encounter Details Date Type Department Care Team (Late st Contact Info) Description 09/18/2017 [facility] Outpatient Visit [facility] [address] [place] [address] [place] [address] [address] Social History Tobacco Use Types Packs/Day Years Used Date Smoking Tobacco: Never Smokeless Tobacco: Never Alcohol Use Standard Drinks/Week Comments Yes 0 (1 standard drink = 0.6 oz pur e alcohol) 2 drinks/week Sex and Gender Information Value Date Recorded Sex Assigned at Not on file Gender Identity Not on file Sexual Orientation Not on file documented as of this encounter Functional Status Functional Status Response Date of Assess ment Is person deaf or have serious hearing difficult y? No 09/07/2017 Is person blind or have serious difficulty seein g? No 09/07/2017 Does person have serious dif ficulty walking/climbing stairs? No 09/07/2017 Does person have difficulty dressing/bathing? No 09/07/2017 Does person have difficulty doing errands alone? No 09/07/2017 Cognitive Status Response Date of Assessm ent Does person have difficulty concentrating/remembering/making decisions? No 09/07/2017 documented as of this encounter Plan of Treatment Not on file documented as of this encounter Visit Diagnoses Not on filedocumented in this encounter Care Teams Sampling Theory Teacher Relationship Specialty Start Date End Date Miguelito Hemphill MD [address] [place] [address] PCP - General Internal Medicine 09/03/17 09/16/19 documented as of this encounter
--- OUTSIDE RECORDS SUMMARY | 2024-04-30 13:20 | XMS_ITS | Encounter Summary ---
Author Organization [facility] Address [address] [place] [address] Care Team Providers Care Hand Baseball Sewer Name Role Phone Van Dupree MD Primary Care Provider + Reason for Visit * Reason Comments Medication Refill requip Encounter Details Date Type Department Care Team (Late st Contact Info) Description 05/23/2019 Refill [facility] [address] [place] [address] [address] [place] [address] Ingrid Ibarra MD [address] [place] [address] Social History Tobacco Use Types Packs/Day Years Used Date Smoking Tobacco: Never Smokeless Tobacco: Never Alcohol Use Standard Drinks/Week Comments Yes 1 (1 standard drink = 0.6 oz pure alcohol) 1 GLASS BEER/WINE 2-3 TIMES A WEEK Comments No Sex and Gender Information Value Date Recorded Sex Assigned at Not on file Legal Sex Female 3:33 AM TELEPHONE ASSEMBLER Gender Identity Not on file Sexual Orientation Not on file Occupation Industry Job Start Date Job End Date Not on file Not on file Not on file Not on file COVID-19 Exposure Response Date Recorded In the last month, have you been in contact with someone who was confirmed or suspected to have Coronavirus / COVID-19? No / Unsure 05/23/2019 1:20 PM CDT documented as of this encounter Miscellaneous Notes * Telephone Encounter - Mary Car LPN - 05/23/2019 2:34 PM CDT Pt is requesting a 90 day supply or the requip which was ordered earlier today. Willian in [facility]. documented in this encounter Plan of Treatment Not on file documented as of this encounter Visit Diagnoses Not on filedocumented in this encounter Additional Health Concerns Assessment Noted Time PHQ-9 Depression Total Score: 1 03/28/19 20 3:00 PM TELEPHONE ASSEMBLER documented as of this encounter Care Teams Hand Baseball Sewer Relationship Specialty Start Date End Date Van Dupree MD [address] [place] [address] PCP - General Internal Medicine 09/28/20 documented as of this encounter
--- OUTSIDE RECORDS SUMMARY | 2024-04-30 13:20 | XMS_ITS | Clinical Summary ---
Author Organization [facility] Address [address] [place] [address] Care Team Providers Care Lead Level Designer Name Role Phone Van Dupree MD Primary Care Provider [phone] Allergies Active Allergy Reactions Criticality Noted Date Comments Zolpidem Hallucinations Medium 10/22/2020 Azithromycin Rash Medium 10/22/2020 Erythromycin Rash Medium 10/22/2020 [place] Hallucinations Medium 10/22/2020 Ziprasidone Hcl Other (See [...] 44.9 in adult Generalized weakness Overactive bladder Surgical History Surgery Date Site/Laterality Comments HIP SURGERY ROTATOR CUFF REPAIR CHOLECYSTECTOMY HYSTERECTOMY Medical History Medical History Date Comments Hypertension Bipolar 1 disorder (HCC) Biggest probelm has been with depression. Low back pain Vertebral compression fracture (HCC) two levels in [place] and thoracic. Diabetes (HCC) Type 2 Diabetic neuropathy (HCC) Gout GERD (gastroesophageal reflux disease) Hyperparathyroidism had 3 parath yroids removed in 2020 Family History Medical History Relation Name Comments Other Father Not a lot of co ntact Depression Mother Had ECT and exp erienced memory loss attributed to the ECT Seizures Other 1 Family history of seizures - (Added by TW Conv) Hypertension Other 2 Family history of hypertension - (Added by TW Conv) Alcohol abuse Other 3 Family history of alcoholism - (Added by TW Conv) Cancer Other 4 Family history of malignant neoplasm - (Added by TW Conv) Lung disease Other 5 Family history of lung disease - (Added by TW Conv) Mental illness Other 6 FH: mental il lness - (Added by TW Conv) Dementia Paternal cousin Began in his 50's Relation Name Status Comments Father Mother Other 1 Other 2 Other 3 Other 4 Other 5 Other 6 Paternal cousin Social History Tobacco Use Types Packs/Day Years [...] on file Legal Sex Female 1:55 PM AERONAUTICAL DRAFTER Gender Identity Not on file Sexual Orientation Not on file Obstetrics History Last Filed Vital Signs Vital Sign Reading [...] 08/13/2023 10:59 AM CDT Plan of Treatment Health Maintenance Due Date Last Done Comments Albumin Creatinine Ratio, Urine 1955 Colon Cancer Screening-Colonoscopy 1955 Depression Screening 1955 Hepatitis C Screening 1955 Dilated Eye Exam 1955 Foot Exam 1955 Hepatitis B Screening 11/02/1973 Zoster Vaccine (1 of 2) 11/02/2005 Pneumococcal vaccine 65+ (2 of 2 - PCV) 03/04/2015 03/04/2014 Breast Cancer Screening-Mammogram 01/11/2020 01/10/2019, 01/10/2019, 03/23/2016, Additional history exists Lipid Panel 09/09/2020 09/10/2019, 07/06, 11/07/2017 Well Visit 65+ 11/02/2020 Osteoporosis Screening-Bone Density Scan 11/12/2020 11/12/2018, 11/12/2018 DTaP/Tdap/Td Vaccine (2 - Td or Tdap) 08/15/2021 08/16/2011 Hemoglobin A1C 02/02/2022 08/03/2021, 08/0 06/2019, 02/10/2019, Additional history exists Fall Risk Assessment 08/09/2022 08/09/2021 eGFR 08/09/2022 08/09/2021, 07/0 05/2021, 08/07/2021, Additional history exists Covid-19 Vaccine (2 - 2023-2 5 season) 2023 05/16/2020 Influenza Vaccine (#1) 2023 9, 10/31/2017, 11/14/2016, Additional history exists Procedures Procedure Name Priority Date/Time Associated Diagnosis [...] of Race in Diagnosing Kidney Disease, JASN 202). The CKD-EPI equation should not be used for patients with unstable renal function and has not been validated in children and those over 70. Current interpretive data was last reviewed 2020. Blood 08/09/2021 5:24 AM CDT 08/09/2021 5:37 AM CDT Alonzo Vasques MD LAB BLOOD ORDERABLES Final Result Performing Organization Address [facility] Co de Phone Number JAKE [address] [facility] [place] [address] * Hemoglobin A1c (08/03/2021 9:14 AM CDT) Hgb A1C 5.5 4.0 - 5.6 % JAKE GUAN Estimated Average Glucose 111 mg/dL AJKE Comment: The ADA recommends reporting an estimated Average Glucose (eAG) with all Hemoglobin A1c results using the equation derived from a study of 507 normal and diabetic adults. Minority populations were underrepresented and children were not included. (Diabetes Care 31:8244-9637, 2008). The eAG is not equivalent to a fasting glucose. Blood 08/03/2021 9:14 AM CDT 08/03/2021 9:25 AM CDT Alonzo Vasques MD LAB BLOOD ORDERABLES Final Result Performing Organization Address City/[facility] Co de Phone Number [facility] [address] [facility] [place] [address] from Last 3 Months or Most Recently Relevant to Health Maintenance Insurance [facility] Address: [address] [address] [place] [address] [facility] Address: [address] [address] [place] [address] [facility] HMO REF [facility] Address: [address] [address] [place] [address] Advance Directives For more information, please contact: [phone] * Full Code (Latest Code Status on File) Date Activated Date Inactivated Comments 08/03/2021 7:40 AM 08/09/2021 6:31 PM Care Teams Lead Level Designer Relationship Specialty Start Date End Date Van Dupree MD PCP - General Internal Medicine 08/11/20
--- OUTSIDE RECORDS SUMMARY | 2024-04-30 13:20 | XMS_ITS | Encounter Summary ---
Author Organization [facility] Address [address] [place] [address] Care Team Providers Care Parole Hearing Officer Name Role Phone Van Dupree MD Primary Care Provider [phone] Encounter Details Date Type Department Care Team (Late st Contact Info) Description 07/08/2020 Prep for Procedure [facility] Pre-Admission Testing [address] [address] Jose Guadalupe Clark MD Social History Tobacco Use Types Packs/Day Years Used Date Smoking Tobacco: Never Smokeless Tobacco: Never Comments:non smoker Alcohol Use Standard Drinks/Week Comments Yes 0 (1 standard drink = 0.6 oz pur e alcohol) ocassionally PHQ-2 Answer Date Recorded PHQ-2 Score - If the patient scores above 3, please move on to questions 3-9 0 06/16/2020 Comments No Sex and Gender Information Value Date Recorded Sex Assigned at Female 02/27/2024 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 No / Unsure 07/08/2020 2:15 PM CDT documented as of this encounter Plan of Treatment Not on file documented as of this encounter Visit Diagnoses Diagnosis Pre-op exam- Primary Preoperative examination, unspecified documented in this encounter Additional Health Concerns Infection Onset Date Last Indicated Resolved Time COVID-19 Rule Out 07/12/2020 07/12/2020 07/12/2020 10:41 AM CDT COVID-19 Rule Out 07/12/2020 07/12/2020 07/13/2020 12:12 AM CDT documented as of this encounter Care Teams Parole Hearing Officer Relationship Specialty Start Date End Date Van Dupree MD [address] [place] [id number] PCP - General INTERNAL MEDICINE 02/13/20 documented as of this encounter
--- OUTSIDE RECORDS SUMMARY | 2024-04-30 13:20 | XMS_ITS | Encounter Summary ---
Author Organization [facility] Address [address] [place] [address] Care Team Providers Care Rail Maintenance Worker Name Role Phone Van Dupree MD Primary Care Provider + Reason for Visit * Reason Comments Medication Refill Encounter Details Date Type Department Care Team (Late st Contact Info) Description 01/09/2019 Refill [facility] [address] [address] Ras Laech MD [address] [facility] [address] [place] [address] Neuropathic pain; Migraine without aura and without status migrainosus, not intractable Social History Tobacco Use Types Packs/Day Years Used Date Smoking Tobacco: Never Smokeless Tobacco: Never Alcohol Use Standard Drinks/Week Comments Yes 1 (1 standard drink = 0.6 oz pure alcohol) 1 GLASS BEER/WINE 2-3 TIMES A WEEK Comments No Sex and Gender Information Value Date Recorded Sex Assigned at Not on file 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 Gender Identity Not on file Sexual Orientation Not on file Occupation Industry Job Start Date Job End Date Not on file Not on file Not on file Not on file documented as of this encounter Plan of Treatment Not on file documented as of this encounter Visit Diagnoses Diagnosis Neuropathic pain Neuralgia, neuritis, and radiculitis, unspecified Migraine without aura and without status migrainosus, not intractable Migraine without aura, without mention of intractable migraine without mention of status migrainosus documented in this encounter Care Teams Rail Maintenance Worker Relationship Specialty Start Date End Date Van Dupree MD [address] [place] [id number] PCP - General Internal Medicine 09/28/20 documented as of this encounter
[2024-04-30 13:53] LABS: Vitamin D 25 Hydroxy 24.4 ng/mL
== END 2024-04-30 12:04 | disposition home or self-care (01) ==
LOC: ANHIMG 12:08
PROVIDERS: PCP Internal Medicine; Visit Provider Internal Medicine
DX: M79.606 Pain in leg, unspecified (principal); M79.89 Other specified soft tissue disorders; E11.9 Type 2 diabetes mellitus without complications; E55.9 Vitamin D deficiency, unspecified; E78.5 Hyperlipidemia, unspecified; I10 Essential (primary) hypertension
CPT/HCPCS: 36415; 80053; 80061; 82306; 83036; 85025; 85610; 93970